=== PATIENT | male | born 1985 | race Caucasian/White ===

== ENCOUNTER 2023-03-02 13:20 | Emergency (ER) | payer MEDICAID, SELFPAY ==
--- NOTE | ~2023-03-02 | XR_ITS ---
EXAMINATION: XR lumbar spine 2-3V, XR sacrum coccyx min 2V CLINICAL INFORMATION: Reason for Exam back pain COMPARISON: None TECHNIQUE: 3 views of the lumbar spine. 3 views of the sacrum and coccyx. FINDINGS: 5 nonrib-bearing lumbar-type vertebral bodies. Vertebral body heights are maintained. Alignment is maintained. Mild degenerative disc disease at L5-S1 with minimal loss of disc space height. Paravertebral soft tissues are unremarkable. Sacroiliac and pubic symphysis joint spaces are maintained. Sacral arcuate lines are intact without evidence of sacral fracture or sacrococcygeal fracture dislocation. XR/XR sacrum coccyx min 2V IMPRESSION: Mild degenerative disc disease at L5-S1. No acute fracture.
--- NOTE | ~2023-03-02 | XR_ITS ---
EXAMINATION: XR lumbar spine 2-3V, XR sacrum coccyx min 2V CLINICAL INFORMATION: Reason for Exam back pain COMPARISON: None TECHNIQUE: 3 views of the lumbar spine. 3 views of the sacrum and coccyx. FINDINGS: 5 nonrib-bearing lumbar-type vertebral bodies. Vertebral body heights are maintained. Alignment is maintained. Mild degenerative disc disease at L5-S1 with minimal loss of disc space height. Paravertebral soft tissues are unremarkable. Sacroiliac and pubic symphysis joint spaces are maintained. Sacral arcuate lines are intact without evidence of sacral fracture or sacrococcygeal fracture dislocation. XR/XR lumbar spine 2-3V IMPRESSION: Mild degenerative disc disease at L5-S1. No acute fracture.
[2023-03-02 13:28] VITALS: BP 123/69; PULSE 78; RESP 16; TEMP 36.1; O2SAT 99; BMI 21.0
--- NOTE | 2023-03-02 13:29 | ED_ITS ---
HPI - Back Pain/Injury General Chief Complaint: Back Pain/Injury Stated Complaint: Back pain Time Seen by Provider: 03/02/23 15:17 Source: patient and RN notes reviewed Mode of arrival: ambulatory Limitations: no limitations History of Present Illness HPI Narrative: This is a 37-year-old male presenting to the emergency department with complaints of low back pain x4 days. Patient reports that while he was flipping wood 4 days ago, he felt some straining in his low back. He states that the pain has been increasing and states that today he has had difficulty walking secondary to the pain. He has been taking ibuprofen 800 without any relief. Patient reports that he has a history of back problems however denies any known disc herniations and has not had any back surgeries. He denies any numbness or tingling into his legs. Denies saddle anesthesia. Denies urinary or bowel incontinence. Denies urinary or bowel retention. Denies any chest pain, shortness of breath, fevers or chills. No other complaints or concerns at this time. MD elicited complaint: back pain Timing: constant Severity: severe Similar Symptoms Previously: No Quality: aching Location: lumbar spine, right lower back and left lower back Radiation: none Exacerbating factors: none Relieving factors: none Context: while lifting Associated symptoms: denies other symptoms Treatments prior to arrival: NSAIDS Work related injury: Yes Related Data Previous Rx's Medication Instructions Recorded acetaminophen 325 mg tablet 650 mg PO QID PRN pain #30 tabs 03/02/23 (Tylenol) cyclobenzaprine 10 mg tablet 10 mg PO TID PRN muscle spasm #20 03/02/23 tabs ibuprofen 800 mg tablet 800 mg PO TID PRN pain #30 tabs 03/02/23 oxycodone 5 mg tablet 5 mg PO Q6H PRN pain #10 tabs 03/02/23 prednisone 50 mg tablet 50 mg PO DAILY 5 days #5 tabs 03/02/23 Allergies Allergy/AdvReac Type Severity Reaction Status Date / Time No Known Allergies Allergy Verified 03/02/23 13:28 Review of Systems Review of Systems: Yes all other systems are reviewed and are negative Constitutional: Constitutional: Reports as per [facility] Social History Social History Advance Directives: No Advance Directives Information Provided: Yes Physical Exam Vital Signs: Vital Signs: Last Vital Signs Temp 97.0 F 03/02/23 13:28 Pulse 78 03/02/23 13:28 Resp 16 03/02/23 13:28 BP 123/69 03/02/23 13:28 Pulse Ox 99 03/02/23 13:28 O2 Del Method Room Air 03/02/23 13:28 BMI result Body Mass Index 21.0 Const: Other: Appears to be uncomfortable, secondary to back pain. General: cooperative Orientation/consciousness: patient oriented x3 Limitations: no limitations HEENT: Head: Yes normal to inspection, Yes normocephalic and Yes atraumatic Ears: hearing grossly normal bilaterally General nose exam: Normal external nose present Face and sinus: Yes normal facial exam Mouth: Normal oral and palatal mucosa present, oropharynx normal and moist mucous membranes Throat: Yes posterior oropharynx normal Eyes: General: appearance normal, both eyes and all related structures Eyelids: Yes eyelids normal Conjunctivae: conjunctivae normal Sclerae: sclerae normal Pupils: Equal, round and reactive pupils present EOM: EOMs intact bilaterally Neck: Neck: Yes normal visual inspection, Yes full ROM and Yes no lymphadenopathy Lymphatic: no lymphadenopathy noted Chest: Chest palpation & inspection: normal inspection of the chest Resp: Effort & Inspection: normal respiratory effort and able to speak in complete sentences Auscultation: clear to auscultation bilaterally, no crackles, no rales, no rhonchi and no wheezes Cardio: Rate: regular rate Rhythm: regular rhythm Heart sounds: S1 normal heart sound present and S2 normal heart sound present GI: Other: Abd is soft, nontender, nondistended. Inspection: Yes normal to inspection Palpation (GI): Soft to palpation Back/Spine/Pelvis: Other: The patient has tenderness to palpation along the midline lumbar spine with bilateral lumbar paraspinous muscle tenderness with spasms noted. Patellar reflexes are 2+ bilaterally. Distal sensation circulation intact. DP pulses 2+ bilaterally Skin: General skin exam: no rashes or lesions noted Trauma: no lacerations or abrasions Wounds: no wounds Neuro: General: patient oriented x3 and moves all extremities Cranial nerves: Yes Equal, round and reactive pupils present Extrem: General: Yes normal to inspection Right upper extremity: normal to inspection Left upper extremity: normal to inspection Right lower extremity: normal to inspection Left lower extremity: normal to inspection Course Course Course Narrative: This is a rapid medical exam. Deferred additional HPI, ROS, PE to primary provider 37 yo male with no known medical history here with lower back pain with r adiation to both legs x several days after lifting wood. Has tried ibuprofen at home with continued symptoms. Per patient unable to walk and arrives in [facility] Medications Administered Discontinued Medications Generic Name Dose Route Start Last Admin Trade Name Maurizio PRN Reason Stop Dose Admin Dexamethasone Sodium Phosphate 10 mg 03/02/23 16:35 03/02/23 16:47 Dexamethasone Sod Phosphate 10 Mg/Ml Vial IVPUSH 03/02/23 16:36 10 mg ONCE ONE Administration Diazepam 2 mg 03/02/23 16:41 03/02/23 16:47 Diazepam 2 Mg Tablet PO 03/02/23 16:42 2 mg ONCE ONE Administration Morphine Sulfate 4 mg 03/02/23 16:14 03/02/23 16:21 Morphine Sulfate 4 Mg/Ml Cartridge IVPUSH 03/02/23 16:15 4 mg ONCE ONE Administration Protocol Oxycodone HCl 5 mg 03/02/23 18:13 03/02/23 18:21 Oxycodone Hcl Immed Release 5 Mg Tablet PO 03/02/23 18:14 5 mg ONCE ONE Administration Medical Decision Making Medical Decision Making MDM Narrative: 37-year-old male presenting to the emergency department for evaluation of back pain x4 days. Patient was moving wood and slowly felt his back pain worsen throughout the last couple of days. He has been taking ibuprofen for his symptoms which has provided him without any relief. He has no red flag back symptoms however after examining patient he appears to be in significant amount of pain, patient medicated with morphine 4 mg IV. Also given Decadron, and Valium. Patient responded well to pain medication. Patient has good strength, Patellar reflexes 2+. X-rays of the lumbar and sacrum x-ray showing degenerative changes without any bony fractures. Discussed these results with patient and fredye at bedside. Patient's Mass Pat revealing patient has been prescribed Suboxone. He states that he has not taken this medication over a week. Patient adamantly denies any IV drug use or hx of IVDA - therefore epidural abscess is unlikely. Pt's hx of recent flipping logs, TTP of lumbar spine with muscle spasms noted supporting diagnosis of MSK related illness. He has had no fevers or chills, and pt is nontoxic appearing. No leukocytosis to suggest infectious process. Pt's presentation consistent with degenerative disc disease and muscle spasms. I discussed at length given patient's past history of opioid dependency on Suboxone and that oxycodone is contraindicated especially if taking concurrently. Patient reports that he has not taken this medication in over a week. I discussed risk versus benefit of treating pain with oxycodone versus Suboxone. Patient is visibly uncomfortable and I think it is appropriate to marisa at for severe pain for several days with NSAIDs, narcotic and steroids. Shared decision was made with patient, fiance and myself at bedside. Urged the importance of only taking oxycodone for severe pain only. I advised and encouraged patient to follow-up with his Suboxone [facility], especially if he c ontinues to start back up on Suboxone. Urged the importance of following up with them. Patient understands and agrees with plan. Patient is ambulatory leaving emergency department feeling improved. Differential Diagnosis Differential Diagnoses: The differential diagnosis associated with the presentation includes Disc herniation, lumbar muscle spasm, fracture, Cauda equina syndrome- un likely, epidural abscess -unlikely No urinary sxs to suggest nephroliathiasis, cystitis, pylonephritis Admission/Observation Consideration of admission/observation: Escalation of care including admission/observation considered Given level of pain, hospitalization observation considered however patient improved symptomatically we after receiving morphine, Valium, and Decadron. Lab Data MDM Lab Attestation statement: I reviewed the patient's lab results. No leukocytosis, H&H stable, chemistry WNL. 03/02/23 16:20 03/02/23 16:20 Labs: Lab Results 03/02/23 03/02/23 Range/Units 16:20 16:20 WBC 7.7 (4.8-10.8) X10*3/uL RBC 4.96 (4.60-5.80) X10*6/uL Hgb 15.4 (14.0-18.0) g/dl Hct 44.5 (42.0-52.0) % MCV 89.7 (80.0-98.0) fL MCH 31.0 (27.0-33.0) pg MCHC 34.6 (31.0-36.0) g/dl RDW 12.0 (11.0-16.0) % Plt Count 192 (160-400) X10*3/uL MPV 11.5 (9.4-12.4) fL Immature Gran % (Auto) 0.3 (0.0-0.4) % Neut % (Auto) 70.3 (45-73) % Lymph % (Auto) 21.0 (20-40) % [place] % (Auto) 6.1 (2-11) % Eos % (Auto) 1.6 (0-4) % Baso % (Auto) 0.7 (0-2) % Lymph # (Auto) 1.6 (1.2-4.9) X10*3/uL [place] # (Auto) 0.5 (0.1-1.2) X10*3/uL Eos # (Auto) 0.1 (0.0-0.4) X10*3/uL Baso # (Auto) 0.1 (0.0-0.2) X10*3/uL Abs Immat Gran (auto) 0.02 (0.00-0.03) X10*3/uL Absolute Neuts (auto) 5.4 (2.0-8.3) x10*3/uL Absolute Nucleated RBC 0.000 (0.0-0.012) X10*3/uL Nucleated RBC % (auto) 0.0 (0.0-0.2) /100WBC Sodium 141 (135-145) mmol/L Potassium 4.1 (3.3-5.1) mmol/L Chloride 104 (96-108) mmol/L Carbon Dioxide 23 (22-29) mmol/L Anion Gap 18 (12-20) BUN 18 H (9-16) mg/dL Creatinine 1.11 (0.5-1.4) mg/dL Estim Creat Clear Calc 75.9 Estimated GFR > 60 Random Glucose 113 (60-115) mg/dL Calcium 9.8 (8.4-10.2) mg/dL Total Bilirubin 0.6 (0.0-1.0) mg/dL Direct Bilirubin 0.2 (0.0-0.5) mg/dL AST 20 (5-37) U/L ALT 18 (0-40) U/L Alkaline Phosphatase 73 (39-117) U/L Total Protein 7.7 (6.5-8.0) g/dL Albumin 4.3 (3.5-5.0) g/dL Independent Interpretation I performed an independent interpretation of an: Plain X-Ray Interpretation: I reviewed xray imaging revealing degenerative changes, and agree with radiology report. Radiology Impression Discussion of test interpretation with radiology: I have reviewed the radiologist's reading. Radiologist Impression: EXAMINATION: XR lumbar spine 2-3V, XR sacrum coccyx min 2V ?CLINICAL INFORMATION: Reason for Exam back pain COMPARISON: None TECHNIQUE: 3 views of the lumbar spine. 3 views of the sacrum and coccyx. FINDINGS: 5 nonrib-bearing lumbar-type vertebral bodies. Vertebral body heights are maintained. Alignment is maintained. Mild degenerative disc disease at L5-S1 with minimal loss of disc space height. Paravertebral soft tissues are unremarkable. Sacroiliac and pubic symphysis joint spaces are maintained. Sacral arcuate lines are intact without evidence of sacral fracture or sacrococcygeal fracture dislocation. XR/XR sacrum coccyx min 2V IMPRESSION: ? Mild degenerative disc disease at L5-S1. ? No acute fracture. Dictated By: Morena Kovacs MD EXAMINATION: XR lumbar spine 2-3V, XR sacrum coccyx min 2V ?CLINICAL INFORMATION: Reason for Exam back pain COMPARISON: None TECHNIQUE: 3 views of the lumbar spine. 3 views of the sacrum and coccyx. FINDINGS: 5 nonrib-bearing lumbar-type vertebral bodies. Vertebral body heights are maintained. Alignment is maintained. Mild degenerative disc disease at L5-S1 with minimal loss of disc space height. Paravertebral soft tissues are unremarkable. Sacroiliac and pubic symphysis joint spaces are maintained. Sacral arcuate lines are intact without evidence of sacral fracture or sacrococcygeal fracture dislocation. XR/XR lumbar spine 2-3V IMPRESSION: ? Mild degenerative disc disease at L5-S1. ? No acute fracture. Dictated By: Morena Kovacs MD Independent Historian Clinical information obtained from an independent historian. History obtained from or confirmed by: Spouse Prescription Management I considered prescription management with: Pain Medication Social Determinants Patient?s care significantly limited by Social Determinants of Health including: Alcoholism and drug addiction in family Discharge Plan Discharge Clinical Impression: Back pain, Degenerative disc disease, lumbar, Lumbar paraspinal muscle spasm Patient Disposition: Home, Self-Care Instructions: Muscle Spasm (ED), Back Pain (ED) Additional Instructions: Please take prescribed medication as directed. Please start the prednisone dose tomorrow. Only take oxycodone as needed for severe pain. We cannot refill this medication in the emergency department. Please follow-up with your primary care physician. If any new or worsening symptoms occur including but not limited to numbness and tingling into your groin, urinary or bowel incontinence, please return for re-evaluation. Prescriptions: New cyclobenzaprine 10 mg tablet 10 mg PO TID PRN (Reason: muscle spasm) Qty: 20 0RF prednisone 50 mg tablet 50 mg PO DAILY 5 Days Qty: 5 0RF oxycodone 5 mg tablet 5 mg PO Q6H PRN (Reason: pain) Qty: 10 0RF Rx Instructions: Partial Fill upon patient request. ibuprofen 800 mg tablet 800 mg PO TID PRN (Reason: pain) Qty: 30 0RF acetaminophen [Tylenol] 325 mg tablet 650 mg PO QID PRN (Reason: pain) Qty: 30 0RF Referrals: [facility] [Physician] - Interventions: ED Discharge Assessment Last Done: 03/02/23 18:29 Discharge Date/Time: 03/02/23 18:29
[2023-03-02] MEDS: Morphine Sulfate 4 MG/ML CARTRIDGE IVPUSH (16:21)
[2023-03-02 16:25] LABS: MANUAL DIFF FLAG NO
[2023-03-02 16:30] LABS: Basophils Absolute Auto 0.1 X10*3/uL (0.0-0.2); Basophils Percent Auto 0.7 % (0-2); Eosinophils Absolute Auto 0.1 X10*3/uL (0.0-0.4); Eosinophils Percent Auto 1.6 % (0-4); Hematocrit 44.5 % (42.0-52.0); Hemoglobin 15.4 g/dl (14.0-18.0); Imm Gran Abs Auto 0.02 X10*3/uL (0.00-0.03); Imm Gran Pct Auto 0.3 % (0.0-0.4); Lymphocytes Absolute Auto 1.6 X10*3/uL (1.2-4.9); Mean Corpuscular HGB Conc 34.6 g/dl (31.0-36.0); Mean Corpuscular Volume 89.7 fL (80.0-98.0); Mean Platelet Volume 11.5 fL (9.4-12.4); Monocytes Absolute Auto 0.5 X10*3/uL (0.1-1.2); Monocytes Percent Auto 6.1 % (2-11); Neutrophils Absolute Auto 5.4 x10*3/uL (2.0-8.3); Neutrophils Percent Auto 70.3 % (45-73); Platelet Count 192 X10*3/uL (160-400); Red Blood Count 4.96 X10*6/uL (4.60-5.80); White Blood Count 7.7 X10*3/uL (4.8-10.8)
[2023-03-02] MEDS: dexAMETHasone sod phosphate 10 MG/ML VIAL IVPUSH (16:47)
[2023-03-02] MEDS: diazePAM 2 MG TABLET PO (16:47)
[2023-03-02 16:50] LABS: Alanine Aminotransferase 18 U/L (0-40); Albumin Level 4.3 g/dL (3.5-5.0); Alkaline Phosphatase 73 U/L (39-117); Anion Gap 18 (12-20); Aspartate Amino Transferase 20 U/L (5-37); Bilirubin Direct 0.2 mg/dL (0.0-0.5); Bilirubin Total 0.6 mg/dL (0.0-1.0); Blood Urea Nitrogen 18 mg/dL (9-16); Calcium 9.8 mg/dL (8.4-10.2); Carbon Dioxide 23 mmol/L (22-29); Chloride 104 mmol/L (96-108); Creatinine Clr Calc Pharmacy 75.9; Estimated Glomerular Filt Rate > 60; Glucose Random 113 mg/dL (60-115); Potassium 4.1 mmol/L (3.3-5.1); Sodium 141 mmol/L (135-145); Total Protein 7.7 g/dL (6.5-8.0)
--- NOTE | 2023-03-02 17:11 | PC.NURSE ---
pt medicated per MAR, imaging obtained, pt now rates pain 02/10 but is okay if (he) doesnt move call sanches within reach
[2023-03-02] MEDS: oxyCODONE HCl Immed Release 5 MG TABLET PO (18:21)
--- NOTE | 2023-03-02 18:28 | PC.NURSE ---
pt medicated perMAR pain now 12/11
== END 2023-03-02 18:29 | disposition home or self-care (01) ==
PROVIDERS: Physician Assistant Medical; Emergency Provider Student in an Organized Health Care Education/Training Program
DX: M51.16 Intervertebral disc disorders with radiculopathy, lumbar region (principal); M54.50 Low back pain, unspecified; M62.830 Muscle spasm of back; M51.37 Other intervertebral disc degeneration, lumbosacral region; Z79.899 Other long term (current) drug therapy
CPT/HCPCS: 36415; 72100; 72220; 80048; 80076; 85025; 96374; 96375; 99284; J1100; J2270

== ENCOUNTER 2023-07-16 23:41 | Inpatient (IN) | payer OTHER, MEDICAID, SELFPAY ==
[2023-07-16 23:42] VITALS: BP 154/96; PULSE 116; RESP 18; TEMP 36.6; O2SAT 100; BMI 21.8
[2023-07-17 00:05] LABS: MANUAL DIFF FLAG NO
[2023-07-17 00:06] LABS: Basophils Absolute Auto 0.1 X10*3/uL (0.0-0.2); Basophils Percent Auto 0.6 % (0-2); Eosinophils Absolute Auto 0.1 X10*3/uL (0.0-0.4); Eosinophils Percent Auto 0.7 % (0-4); Hematocrit 47.6 % (42.0-52.0); Hemoglobin 16.8 g/dl (14.0-18.0); Imm Gran Abs Auto 0.03 X10*3/uL (0.00-0.03); Imm Gran Pct Auto 0.3 % (0.0-0.4); Lymphocytes Absolute Auto 3.1 X10*3/uL (1.2-4.9); Lymphocytes Percent Auto 35.9 % (20-40); Mean Corpuscular HGB Conc 35.3 g/dl (31.0-36.0); Mean Corpuscular Hemoglobin 32.2 pg (27.0-33.0); Mean Corpuscular Volume 91.2 fL (80.0-98.0); Mean Platelet Volume 11.5 fL (9.4-12.4); Monocytes Absolute Auto 0.6 X10*3/uL (0.1-1.2); Monocytes Percent Auto 6.6 % (2-11); Neutrophils Absolute Auto 4.8 x10*3/uL (2.0-8.3); Neutrophils Percent Auto 55.9 % (45-73); Platelet Count 250 X10*3/uL (160-400); Red Blood Count 5.22 X10*6/uL (4.60-5.80); White Blood Count 8.7 X10*3/uL (4.8-10.8)
[2023-07-17 00:20] LABS: COVID-19 Test Negative (Negative); IDNOW Serial# BCCEAD1C
--- NOTE | 2023-07-17 00:24 | ED.PSYCH ---
HPI - Psych General Chief Complaint: Psychiatric Symptoms Stated Complaint: SI Time Seen by Provider: 07/17/23 00:23 Source: patient Mode of arrival: ambulatory Limitations: no limitations History of Present Illness HPI Narrative: 38-year-old male who presents emergency department for evaluation of depression, alcohol use disorder and opiate use disorder. Patient states that he has depression but has never been diagnosed with depression or been on medications. He states that he has been using oxycodone 30 mg 8 times a day but was unable to get any oxycodone for the last 1.5 weeks. He states that he then drank a pint of vodka between 16:00 and midnight prior to coming to the emergency department. Patient states that he normally drinks 3-4 beers per day. He states that he also smokes marijuana daily. He denies using any other drugs. Patient states that he is currently depressed but not suicidal. He would like to talk to a counselor regarding getting treatment for depression as well as getting treatment for his opiate and alcohol use disorder. Patient denied being ill recently. He denied fever, chills, rhinorrhea, sore throat, chest pain, shortness of breath, nausea, vomiting or diarrhea. He states he does get sweats at night has been having difficulty sleeping over the past 2 nights which he attributes to opiate withdrawal. He states that he at [facility] for rehab 3-4 months ago but he states that after rehab he started using opiates again. Related Data Home Medications Medication Instructions Recorded Confirmed No Known Home Meds 07/17/23 07/17/23 Allergies Allergy/AdvReac Type Severity Reaction Status Date / Time No Known Allergies Allergy Verified 03/02/23 13:28 Review of Systems Review of Systems: Yes all other systems are reviewed and are negative [facility] Past Medical History [facility] Narrative: Social history: Patient smokes 1 pack of cigarettes per day. He states that he drinks 3-4 beers per day. Patient advised oxycodone [address] and uses 8 tablets per day. He smokes marijuana daily. Social History Social History Advance Directives: No Advance Directives Information Provided: No Healthcare Proxy: No Guardian: No Physical Exam Vital Signs: Vital Signs: Last Vital Signs Temp 97.8 F 07/16/23 23:42 Pulse 116 H 07/16/23 23:42 Resp 18 07/16/23 23:42 BP 154/96 H 07/16/23 23:42 Pulse Ox 100 07/16/23 23:42 O2 Del Method Room Air 07/16/23 23:42 BMI result Body Mass Index 21.8 Vital signs revealed an elevated blood pressure of 154/96, elevated pulse 116 otherwise unremarkable. Exam General: Awake, alert in no distress Head: Normocephalic, atraumatic EENT: PERRL, Lids normal, sclera normal, conjunctiva normal, nose normal , ears normal, throat without erythema or exudates Neck: Supple, no adenopathy, no trachea midline or C-spine tenderness Lung: breath sounds symmetric, no wheezing, rales or rhonchi Chest: symmetric movement, nontender Heart: regular rate and rhythm, normal S1, S2 no murmurs or rubs Abdomen: soft, non-tender, nondistended, normal bowel sounds Back: no vertebral tenderness, no CVAT Extremities: no deformities, moves all extremities symmetrically Neuro: Awake, alert, oriented, normal speech, cranial nerves intact, moves all extremities symmetrically Psych: Pleasant, cooperative Medications Administered Discontinued Medications Generic Name Dose Route Start Last Admin Trade Name Freq PRN Reason Stop Dose Admin Lorazepam 2 mg 07/17/23 00:43 07/17/23 00:58 Lorazepam 1 Mg Tablet PO 07/17/23 00:44 2 mg ONCE ONE Administration Medical Decision Making Medical Decision Making [facility] Narrative: 38-year-old male with history of opiate use disorder, alcohol use disorder who states that he feels depressed and is requesting evaluation for depression and his opiate and alcohol use disorder. Patient states he did drink 1 pint of vodka prior to coming to emergency department. He states that he was using oxycodone 30 mg tablets 3 times a day but was able to get access to any oxycodone and has not had any opiates1.5 weeks prior. Patient's vital signs did reveal elevated blood pressure and elevated heart rate. Patient's exam is otherwise unremarkable. Following evaluation was ordered: CBC, CMP, urine drug screen, ethanol level, urinalysis, COVID-19 Patient is treated with Ativan 2 mg orally for anxiety and insomnia. My interpretation patient's laboratory evaluation is as follows: CBC was normal. CMP revealed an elevated glucose of 122 an elevated protein of 8.3 otherwise unremarkable. Urinalysis was negative. Urine tox screen was negative. Alcohol level was elevated 115 consistent with acute intoxication. Patient is medically cleared to be seen by the care team. 03:29 Patient was evaluated by the care team. Care team was able to get information from the patient's friend, apparently the patient made suicidal statements to his which sounded correctable. Patient was placed on a Section 12. Patient will remain in the emergency department Behavioral Health Unit until disposition can be determined or until patient's symptoms improve over time. Differential Diagnosis Differential Diagnoses: The differential diagnosis associated with the presentation includes Differential diagnosis includes was not limited to depression, suicidal ideation, anxiety, alcohol use disorder, opiate use disorder Admission/Observation Consideration of admission/observation: Escalation of care including admission/observation considered Lab Data MDM Lab Attestation statement: I reviewed the patient's lab results. See MDM above 07/16/23 23:59 07/16/23 23:59 Labs: Lab Results 07/16/23 07/17/23 Range/Units 23:59 00:14 WBC 8.7 (4.8-10.8) X10*3/uL RBC 5.22 (4.60-5.80) X10*6/uL Hgb 16.8 (14.0-18.0) g/dl Hct 47.6 (42.0-52.0) % MCV 91.2 (80.0-98.0) fL MCH 32.2 (27.0-33.0) pg MCHC 35.3 (31.0-36.0) g/dl RDW 13.0 (11.0-16.0) % Plt Count 250 D (160-400) X10*3/uL MPV 11.5 (9.4-12.4) fL Immature Gran % (Auto) 0.3 (0.0-0.4) % Neut % (Auto) 55.9 (45-73) % Lymph % (Auto) 35.9 (20-40) % [place] % (Auto) 6.6 (2-11) % Eos % (Auto) 0.7 (0-4) % Baso % (Auto) 0.6 (0-2) % Lymph # (Auto) 3.1 (1.2-4.9) X10*3/uL [place] # (Auto) 0.6 (0.1-1.2) X10*3/uL Eos # (Auto) 0.1 (0.0-0.4) X10*3/uL Baso # (Auto) 0.1 (0.0-0.2) X10*3/uL Abs Immat Gran (auto) 0.03 (0.00-0.03) X10*3/uL Absolute Neuts (auto) 4.8 (2.0-8.3) x10*3/uL Absolute Nucleated RBC 0.000 (0.0-0.012) X10*3/uL Nucleated RBC % (auto) 0.0 (0.0-0.2) /100WBC Sodium 145 (135-145) mmol/L Potassium 4.0 (3.3-5.1) mmol/L Chloride 106 (96-108) mmol/L Carbon Dioxide 27 (22-29) mmol/L Anion Gap 16 (12-20) BUN 13 (9-16) mg/dL Creatinine 1.04 (0.5-1.4) mg/dL Estim Creat Clear Calc 83.4 Estimated GFR > 60 Random Glucose 122 H (60-115) mg/dL Calcium 9.4 (8.4-10.2) mg/dL Total Bilirubin 0.3 (0.0-1.0) mg/dL AST 23 (5-37) U/L ALT 23 (0-40) U/L Alkaline Phosphatase 80 (39-117) U/L Total Protein 8.3 H (6.5-8.0) g/dL Albumin 4.6 (3.5-5.0) g/dL Urine Color Yellow Urine Appearance Clear Urine pH 6.5 (5.0-9.0) Ur Specific [place] 1.015 (1.005-1.025) Urine Protein Negative (Neg-Trace) mg/dL Urine Glucose (UA) Negative (Negative) mg/dL Urine Ketones Negative (Negative) mg/dL Urine Blood Negative (Negative) Urine Nitrite Negative (Negative) Ur Leukocyte Esterase Negative (Negative) Urine Opiates Screen Not Detected (Not Detect) Urine Fentanyl Screen Not Detected (Not Detect) Ur Barbiturates Screen Not Detected (Not Detect) Ur Phencyclidine Scrn Not Detected (Not Detect) Ur Amphetamines Screen Not Detected (Not Detect) U Benzodiazepines Scrn Not Detected (Not Detect) Urine Cocaine Screen Not Detected (Not Detect) U Marijuana (THC) Screen Not Detected (Not Detect) Ethyl Alcohol 115 mg/dL COVID-19 (TWYLA) Negative (Negative) COVID-19 Clin Com See Note Discharge Plan Discharge Clinical Impression: Depression, Suicidal ideation, Opiate use, Alcohol intoxication Patient Disposition: Still a Patient Prescriptions: No Action No Known Home Meds Interventions: [place]-Suicide Risk Severity Scale Last Done: 07/17/23 00:09
[2023-07-17 00:25] LABS: Alanine Aminotransferase 23 U/L (0-40); Albumin Level 4.6 g/dL (3.5-5.0); Alkaline Phosphatase 80 U/L (39-117); Anion Gap 16 (12-20); Aspartate Amino Transferase 23 U/L (5-37); Bilirubin Total 0.3 mg/dL (0.0-1.0); Blood Urea Nitrogen 13 mg/dL (9-16); Calcium 9.4 mg/dL (8.4-10.2); Carbon Dioxide 27 mmol/L (22-29); Chloride 106 mmol/L (96-108); Creatinine Clr Calc Pharmacy 83.4; Estimated Glomerular Filt Rate > 60; Ethanol 115 mg/dL; Glucose Random 122 mg/dL (60-115); Sodium 145 mmol/L (135-145); Total Protein 8.3 g/dL (6.5-8.0)
[2023-07-17 00:37] LABS: Appearance Urine Clear; Color Urine Yellow; Glucose Urine UA Negative (Negative); Leukocyte Esterase Urine Negative (Negative); Nitrite Urine Negative (Negative); PH 6.5 (5.0-9.0); Specific Gravity - Urine 1.015 (1.005-1.025); Urine Blood Negative (Negative); Urine Ketones Negative (Negative); Urine Protein Negative (Neg-Trace)
[2023-07-17 00:38] LABS: Amphetamine Screen Urine Not Detected (Not Detect); Barbiturates, Urine Not Detected (Not Detect); Benzodiazepines Screen Urine Not Detected (Not Detect); Cannabinoid Screen Urine Not Detected (Not Detect); Cocaine Screen Urine Not Detected (Not Detect); Fentanyl, urine Not Detected (Not Detect); Opiate Screen Urine Not Detected (Not Detect); Phencyclidine Screen Urine Not Detected (Not Detect)
[2023-07-17] MEDS: LORazepam 1 MG TABLET 2 MG PO (00:58)
[2023-07-17] MEDS: hydrOXYzine HCL 50 MG TABLET PO (04:05)
[2023-07-17 11:50] VITALS: BP 133/79; PULSE 68; RESP 16; TEMP 37.1; O2SAT 99
[2023-07-17 13:43] VITALS: BP 143/81; PULSE 65; RESP 18; TEMP 36.5; O2SAT 100
--- NOTE | 2023-07-17 13:58 | PC.NURSE ---
Hieu was in bed resting for most of the shift. He was pleasant when engaged and endorses wanting help and is happy about a bed up on the unit. Hieu has had no behavioral concerns. No meds ordered or requested.
[2023-07-17 13:59] VITALS: BMI 22.1
[2023-07-17] MEDS: Nicotine 21 MG PATCH.TD24 TRANSDERMA (14:12)
--- NOTE | 2023-07-17 15:52 | PC.ADMIT ---
Pt is a 38 y/o male with a spouse at home who arrived on M3 on 07/17/23 at 1343 on a CV. He came to the ED due to increased depression, alcohol use and opiate use. Pt reports using 8x 30mg Oxycodone a day from the streets, and drinking about a pint a day. Utox came back negative and BAL was reported to be 115. When approached, pt is calm and cooperative and accepting of help. He is A&O x 4 and denies SI/HI/AVH but endorses anxiety and depression. Skin check done by MACO and Davina Corado RN with no issues, participated in answering questions, and given a unit tour. He reports feeling safe and is willing to come to staff if feeling unsafe.
[2023-07-17] MEDS: Nicotine Polacrilex 2 MG GUM 4 MG BUCCAL ×3 (17:17→22:14)
[2023-07-17 18:00] VITALS: BP 138/82; PULSE 88; RESP 18; TEMP 37; O2SAT 99
[2023-07-17] MEDS: hydrOXYzine HCL 25 MG TABLET PO (23:44)
[2023-07-17] MEDS: traZODone HCL 50 MG TABLET PO (23:44)
[2023-07-18] MEDS: traZODone HCL 50 MG TABLET PO (01:17)
[2023-07-18] MEDS: QUEtiapine Fumarate 50 MG TABLET PO (03:36)
[2023-07-18 07:30] VITALS: BP 115/61; PULSE 70; RESP 14; TEMP 36.6; O2SAT 99
[2023-07-18 08:22] LABS: Estimated Average Glucose 88 mg/dL; Hemoglobin A1c % 4.7 % (<6.0)
[2023-07-18 08:30] LABS: Cholesterol 188 mg/dL (<200); HDL Cholesterol 66 mg/dL (>40); LDL Cholesterol Calculated 102 mg/dL (<100); Triglycerides 103 mg/dL (<150)
[2023-07-18 08:45] LABS: Free T4 (Free Thyroxine) 0.77 ng/dL (0.71-1.85); Thyroid Stimulating Hormone 1.29 uIU/mL (0.32-4.0)
--- NOTE | 2023-07-18 08:47 | HO.PS.ADMBH ---
HPI Date of Service: 07/18/23 Chief Complaint: SI/depression HPI Narrative: per CARE team evaluation, pt self-presented to ED c/o depression, alcohol use disorder, and opioid use disorder. he denied SI to clinicians but collateral from ngozi indicated he had recently been expressing SI at home. he reported a h/o physical injury and prescription for oxycodone, which then became and habit and then a substance of abuse. when he is unable to obtain oxycodone he drinks more heavily. he reported he has not had any oxycodone for 10 days and in the past 10 days has substantially increased his alcohol consumption. he c/o severe insomnia as a primary target symptom. he has been unable to work the past several weeks due to his insomnia, depression, and substance use. 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 in the past several weeks, as he has stopped working, this pain has subsided. 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 on interview with MD, pt was polite, calm, well-related, and engaged. he identified opioid addiction, alcohol addiction, depression/insomnia, and neuropathic pain as his problems. he identified insomnia and depression as target symptoms. R/B of medications and other approaches to the identified problems were discussed. in order to target pt's most salient symptom of insomnia, pt agreed to try remeron with seroquel back-up. for depression and neuropathic pain he agreed to start effexor. he was interested in a neurology consult for his bi-manual sensory, pain, and strength complaints. he will use ativan per [facility] protocol for alcohol withdrawal and will consider suboxone therapy for his opioid use disorder. Past Psychiatric History: hosps: none SA: none SIB: none HIB: none outpt: no Hx Medical Evaluation Reviewed: Yes PMF Family History: denies Social History: HS grad. lives with his ngozi and two children in a home they own. 14 yo, his bio child, and 9 yo, his step-child. 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 [employer]s vet, other than honorable discharge (briefly AWOL and admitted cannabis use trying to get out of service so he could be with his partner). Substance History: tobacco - 1.5 ppd alcohol - vodka 1-1.5 pints per day. no h/o Tx. no detox, no withdrawal Sz Hx. cannabis - once every other week opioids - oxycodone 30 mg 8 times daily when available, none for the past 10 days stimulants - none cocaine - none in the past year hallucinogenic mushrooms - microdosing for several days about 6 months ago Trauma History: i was in the [employer]. that was traumatic enough. Diagnostics Vital Signs (24Hr): Vital Signs - 24 hr 07/17/23 11:50 07/17/23 13:43 07/17/23 18:00 Temperature 98.8 F 97.7 F 98.6 F Pulse Rate 68 65 88 Respiratory Rate 16 18 18 Blood Pressure 133/79 143/81 H 138/82 Pulse Oximetry 99 100 99 Oxygen Delivery Method Room Air Room Air Room Air 07/18/23 07:30 Temperature 97.9 F Pulse Rate 70 Respiratory Rate 14 Blood Pressure 115/61 Pulse Oximetry 99 Oxygen Delivery Method Room Air BMI result Body Mass Index 22.1 Labs 07/16/23 23:59 07/16/23 23:59 Labs: Laboratory Results - last 48 hr 07/16/23 07/17/23 07/18/23 23:59 00:14 08:02 WBC 8.7 RBC 5.22 Hgb 16.8 Hct 47.6 MCV 91.2 MCH 32.2 MCHC 35.3 RDW 13.0 Plt Count 250 D MPV 11.5 Immature Gran % (Auto) 0.3 Neut % (Auto) 55.9 Lymph % (Auto) 35.9 Moody % (Auto) 6.6 Eos % (Auto) 0.7 Baso % (Auto) 0.6 Lymph # (Auto) 3.1 Moody # (Auto) 0.6 Eos # (Auto) 0.1 Baso # (Auto) 0.1 Abs Immat Gran (auto) 0.03 Absolute Neuts (auto) 4.8 Absolute Nucleated RBC 0.000 Nucleated RBC % (auto) 0.0 Sodium 145 Potassium 4.0 Chloride 106 Carbon Dioxide 27 Anion Gap 16 BUN 13 Creatinine 1.04 Estim Creat Clear Calc 83.4 Estimated GFR > 60 Random Glucose 122 H Estimat Average Glucose 88 Hemoglobin A1c % 4.7 Calcium 9.4 Total Bilirubin 0.3 AST 23 ALT 23 Alkaline Phosphatase 80 Total Protein 8.3 H Albumin 4.6 Triglycerides 103 Cholesterol 188 LDL Cholesterol, Calc 102 H HDL Cholesterol 66 TSH 1.29 Free T4 0.77 Urine Color Yellow Urine Appearance Clear Urine pH 6.5 Ur Specific [place] 1.015 Urine Protein Negative Urine Glucose (UA) Negative Urine Ketones Negative Urine Blood Negative Urine Nitrite Negative Ur Leukocyte Esterase Negative Urine Opiates Screen Not Detected Urine Fentanyl Screen Not Detected Ur Barbiturates Screen Not Detected Ur Phencyclidine Scrn Not Detected Ur Amphetamines Screen Not Detected U Benzodiazepines Scrn Not Detected Urine Cocaine Screen Not Detected U Marijuana (THC) Screen Not Detected Ethyl Alcohol 115 COVID-19 (TWYLA) Negative COVID-19 Clin Com See Note Meds/Allergies Meds Home Medications Medication Instructions Recorded Confirmed Type No Known Home Meds 07/17/23 07/17/23 History Allergies Allergies Allergy/AdvReac Type Severity Reaction Status Date / Time No Known Allergies Allergy Verified 03/02/23 13:28 Mental Status Exam Mental Status Exam Narrative: adequately dressed and groomed. no PMA/PMR. calm, cooperative. speech nml rate, amount, loudness, tone, latency. thoughts linear and logical. affect full range, normo-intense, non-labile. mood i'm here. denies SI/HI/AVH. 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 start remeron 30 mg ay HS for insomnia. increase to 45 mg QHS as indicated. seroquel 50-100 mg at HS for insomnia backup or to use as mainstay of insomnia therapy if remeron proves to be inadequate. neuro consult for evaluation of neuropathy in hands/arms B/L. ativan per [facility] protocol for alcohol withdrawal. no oxycodone in 10 days so no withdrawal anticipated. T/C suboxone, as pt has been addicted to opioids for about 2+ years now. Patient educated on: diagnosis, medication risk/benefits, substance abuse and medical condition Reason for continued partial hosp. stay Substantial Risk for: harm to self and inability to function Certification I certify that partial hospital treatment is medically necessary due to the symptoms and problems resulting from the patient's mental illness and the failure to treat the patient at the partial hospital level of care would likely result in the patient requiring inpatient psychiatric care which could not be prevented at a less intensive level of care. Time Spent With Patient Time: Total time managing care of this patient today __75__ minutes.
[2023-07-18 08:58] LABS: Folate 7.4 ng/mL (> or = 4.0); Vitamin B12 454 pg/mL (200-900)
[2023-07-18] MEDS: Nicotine 21 MG PATCH.TD24 TRANSDERMA (12:14)
[2023-07-18] MEDS: Nicotine Polacrilex 2 MG GUM 4 MG BUCCAL ×5 (12:15→20:47)
[2023-07-18] MEDS: Venlafaxine HCl ER 37.5 MG CAP.ER.24H PO (13:39)
[2023-07-18 19:50] VITALS: BP 141/69; PULSE 86; RESP 16; TEMP 36.9; O2SAT 98
[2023-07-18] MEDS: Milk of Magnesia 30 ML ORAL.SUSP PO (20:46)
[2023-07-18] MEDS: QUEtiapine Fumarate 100 MG TABLET PO (21:32)
[2023-07-18] MEDS: Docusate Sodium 100 MG CAPSULE PO (21:32)
[2023-07-18] MEDS: Mirtazapine 30 MG TABLET PO (21:32)
[2023-07-19 08:13] VITALS: BP 124/75; PULSE 60; TEMP 36.4; O2SAT 100
[2023-07-19] MEDS: Milk of Magnesia 30 ML ORAL.SUSP PO (09:05)
[2023-07-19] MEDS: Docusate Sodium 100 MG CAPSULE PO ×2 (09:05→18:36)
[2023-07-19] MEDS: Nicotine 21 MG PATCH.TD24 TRANSDERMA (09:06)
[2023-07-19] MEDS: Venlafaxine HCl ER 37.5 MG CAP.ER.24H PO (09:07)
[2023-07-19] MEDS: Nicotine Polacrilex 2 MG GUM 4 MG BUCCAL ×5 (11:22→20:16)
[2023-07-19] MEDS: hydrOXYzine HCL 25 MG TABLET PO (15:37)
--- NOTE | 2023-07-19 17:14 | HO.PSYCHPN ---
Subjective Subjective Date of Service: 07/19/23 Reason For Visit: SI/depression Interim History: Patient seen. He reports he is feeling As good as one can in here. He is tolerating medications well and has no side effects. He denies active SI. Appears dysphoric. Denies AVH. Review of Systems Review of Systems Yes all other systems are reviewed and are negative Mental Status Exam Mental Status Exam Narrative: adequately dressed and groomed. no PMA/PMR. calm, cooperative. speech nml rate, amount, loudness, tone, latency. thoughts linear and logical. affect full range, normo-intense, non-labile. mood i'm here. denies SI/HI/AVH. Diagnostics Vital Signs (24Hr): Vital Signs - 24 hr 07/18/23 19:50 07/19/23 08:13 Temperature 98.4 F 97.6 F Pulse Rate 86 60 Respiratory Rate 16 Blood Pressure 141/69 H 124/75 Pulse Oximetry 98 100 Oxygen Delivery Method Room Air Room Air BMI result Body Mass Index 22.1 Labs 07/16/23 23:59 07/16/23 23:59 Labs: Laboratory Results - last 48 hr 07/18/23 08:02 Estimat Average Glucose 88 Hemoglobin A1c % 4.7 Triglycerides 103 Cholesterol 188 LDL Cholesterol, Calc 102 H HDL Cholesterol 66 Vitamin B12 454 Folate 7.4 TSH 1.29 Free T4 0.77 Medications Medications Current Medications Acetaminophen (Acetaminophen 325 Mg Tablet) 650 mg PO Q6H PRN PRN Reason: Headache/Pain Mild Scale (1-3) Al Hydroxide/Mg Hydroxide (Magnesium Hydrox/Alum Hydrox 30 Ml Oral.Susp) 30 ml PO Q6H PRN PRN Reason: Heartburn/Nausea Docusate Sodium (Docusate Sodium 100 Mg Capsule) 100 mg PO BID PRN PRN Reason: constipation Last Admin: 07/19/23 09:05 Dose: 100 mg Hydroxyzine HCl (Hydroxyzine Hcl 25 Mg Tablet) 25 mg PO Q6H PRN PRN Reason: Anxiety Last Admin: 07/19/23 15:37 Dose: 25 mg Lorazepam (Lorazepam 1 Mg Tablet) 1 mg PO Q2H PRN PRN Reason: CIWA 8-11 Lorazepam (Lorazepam 1 Mg Tablet) 2 mg PO Q2H PRN PRN Reason: CIWA 12-15 Lorazepam (Lorazepam 1 Mg Tablet) 3 mg PO Q2H PRN PRN Reason: CIWA > 15; and call Magnesium Hydroxide (Milk Of Magnesia 30 Ml Oral.Susp) 30 ml PO DAILY PRN PRN Reason: Constipation Last Admin: 07/19/23 09:05 Dose: 30 ml Mirtazapine (Mirtazapine 30 Mg Tablet) 30 mg PO BEDTIME [facility] Last Admin: 07/18/23 21:32 Dose: 30 mg Nicotine (Nicotine 21 Mg Patch.Td24) 21 mg TRANSDERMA DAILY [facility] Last Admin: 07/19/23 09:06 Dose: 21 mg Nicotine Polacrilex (Nicotine Polacrilex 2 Mg Gum) 4 mg BUCCAL Q2H PRN PRN Reason: Nicotine Cravings Last Admin: 07/19/23 16:05 Dose: 4 mg Quetiapine Fumarate (Quetiapine Fumarate 50 Mg Tablet) 50 mg PO BEDTIME PRN PRN Reason: minor insomnia Quetiapine Fumarate (Quetiapine Fumarate 100 Mg Tablet) 100 mg PO BEDTIME PRN PRN Reason: major insomnia Last Admin: 07/18/23 21:32 Dose: 100 mg Venlafaxine HCl (Venlafaxine Hcl Er 37.5 Mg Cap.Er.24h) 37.5 mg PO DAILY [facility] Last Admin: 07/19/23 09:07 Dose: 37.5 mg Allergies Allergies Allergy/AdvReac Type Severity Reaction Status Date / Time No Known Allergies Allergy Verified 03/02/23 13:28 Assessment & Plan Assessment & Plan (1) Depression: Status: Acute Code(s): F32.A - Depression, unspecified (2) Suicidal ideation: Status: Acute Code(s): R45.851 - Suicidal ideations (3) Opiate use: Status: Acute Code(s): F11.90 - Opioid use, unspecified, uncomplicated (4) Alcohol use disorder: Status: Acute Code(s): F10.90 - Alcohol use, unspecified, uncomplicated Plan start effexor XR 37.5 mg daily for depression; 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 start remeron 30 mg ay HS for insomnia. increase to 45 mg QHS as indicated. seroquel 50-100 mg at HS for insomnia backup or to use as mainstay of insomnia therapy if remeron proves to be inadequate. neuro consult for evaluation of neuropathy in hands/arms B/L. ativan per [facility] protocol for alcohol withdrawal. no oxycodone in 10 days so no withdrawal anticipated. T/C suboxone, as pt has been addicted to opioids for about 2+ years now. 07/19: Continue treatment plan. Reason for continued inpatient stay Substantial Risk for: harm to self and rapid decompensation Time Spent With Patient Time: Total time managing care of this patient today ____ minutes.
[2023-07-19 19:45] VITALS: BP 148/66; PULSE 67; RESP 18; TEMP 36.9; O2SAT 98
--- NOTE | 2023-07-19 20:17 | PC.NURSE ---
Hieu reported increased nicotine cravings, asked for gum slightly earlier than allowed.
[2023-07-19] MEDS: QUEtiapine Fumarate 100 MG TABLET PO (20:44)
[2023-07-19] MEDS: Mirtazapine 30 MG TABLET PO (20:44)
[2023-07-20] MEDS: QUEtiapine Fumarate 50 MG TABLET PO ×2 (01:03→22:39)
[2023-07-20] MEDS: Nicotine Polacrilex 2 MG GUM 4 MG BUCCAL ×9 (01:03→22:39)
--- NOTE | 2023-07-20 01:04 | PC.NURSE ---
Hieu up to nurse's station at 0100. Stated he has been tossing and turning an unable to return to sleep. Requested the 50 mg of Seroquel to see if it would help him fall back to sleep.
[2023-07-20 07:35] VITALS: BP 119/66; PULSE 63; RESP 18; TEMP 36.2; O2SAT 98
[2023-07-20] MEDS: Nicotine 21 MG PATCH.TD24 TRANSDERMA (08:10)
[2023-07-20] MEDS: Venlafaxine HCl ER 37.5 MG CAP.ER.24H PO (08:10)
[2023-07-20] MEDS: hydrOXYzine HCL 25 MG TABLET PO (08:10)
[2023-07-20] MEDS: Docusate Sodium 100 MG CAPSULE PO ×2 (09:51→20:59)
[2023-07-20] MEDS: Milk of Magnesia 30 ML ORAL.SUSP PO (11:39)
[2023-07-20] MEDS: hydrOXYzine HCL 50 MG TABLET PO ×2 (14:43→20:56)
--- NOTE | 2023-07-20 19:32 | P.PNPSI_ITS ---
Subjective Subjective Date of Service: 07/20/23 Reason For Visit: SI/depression Interim History: Patient seen. He reports he is feeling better. He says he is anxious in groups. He is finding Hydroxyzine helpful but wondering about increase. Tolerating Effexor and Remeron. He denies active SI. Appears dysphoric. Denies AVH. Doesn't want to talk to because he is afraid speaking with her will make him want to go home more. Review of Systems Review of Systems Yes all other systems are reviewed and are negative Mental Status Exam Mental Status Exam Narrative: adequately dressed and groomed. no PMA/PMR. calm, cooperative. speech nml rate, amount, loudness, tone, latency. thoughts linear and logical. affect full range, normo-intense, non-labile. mood i'm here. denies SI/HI/AVH. Diagnostics Vital Signs (24Hr): Vital Signs - 24 hr 07/19/23 19:45 07/20/23 07:35 Temperature 98.5 F 97.2 F Pulse Rate 67 63 Respiratory Rate 18 18 Blood Pressure 148/66 H 119/66 Pulse Oximetry 98 98 Oxygen Delivery Method Room Air Room Air BMI result Body Mass Index 22.1 Labs 07/16/23 23:59 07/16/23 23:59 Medications Medications Current Medications Acetaminophen (Acetaminophen 325 Mg Tablet) 650 mg PO Q6H PRN PRN Reason: Headache/Pain Mild Scale (1-3) Al Hydroxide/Mg Hydroxide (Magnesium Hydrox/Alum Hydrox 30 Ml Oral.Susp) 30 ml PO Q6H PRN PRN Reason: Heartburn/Nausea Docusate Sodium (Docusate Sodium 100 Mg Capsule) 100 mg PO BID PRN PRN Reason: constipation Last Admin: 07/20/23 09:51 Dose: 100 mg Hydroxyzine HCl (Hydroxyzine Hcl 50 Mg Tablet) 50 mg PO Q6H PRN PRN Reason: Anxiety Last Admin: 07/20/23 14:43 Dose: 50 mg Lorazepam (Lorazepam 1 Mg Tablet) 1 mg PO Q2H PRN PRN Reason: CIWA 8-11 Lorazepam (Lorazepam 1 Mg Tablet) 2 mg PO Q2H PRN PRN Reason: CIWA 12-15 Lorazepam (Lorazepam 1 Mg Tablet) 3 mg PO Q2H PRN PRN Reason: CIWA > 15; and call MD Magnesium Hydroxide (Milk Of Magnesia 30 Ml Oral.Susp) 30 ml PO DAILY PRN PRN Reason: Constipation Last Admin: 07/20/23 11:39 Dose: 30 ml Mirtazapine (Mirtazapine 30 Mg Tablet) 30 mg PO BEDTIME [facility] Last Admin: 07/19/23 20:44 Dose: 30 mg Nicotine (Nicotine 21 Mg Patch.Td24) 21 mg TRANSDERMA DAILY [facility] Last Admin: 07/20/23 08:10 Dose: 21 mg Nicotine Polacrilex (Nicotine Polacrilex 2 Mg Gum) 4 mg BUCCAL Q2H PRN PRN Reason: Nicotine Cravings Last Admin: 07/20/23 17:47 Dose: 4 mg Quetiapine Fumarate (Quetiapine Fumarate 50 Mg Tablet) 50 mg PO BEDTIME PRN PRN Reason: minor insomnia Last Admin: 07/20/23 01:03 Dose: 50 mg Quetiapine Fumarate (Quetiapine Fumarate 100 Mg Tablet) 100 mg PO BEDTIME PRN PRN Reason: major insomnia Last Admin: 07/19/23 20:44 Dose: 100 mg Venlafaxine HCl (Venlafaxine Hcl Er 37.5 Mg Cap.Er.24h) 37.5 mg PO DAILY [facility] Last Admin: 07/20/23 08:10 Dose: 37.5 mg Allergies Allergies Allergy/AdvReac Type Severity Reaction Status Date / Time No Known Allergies Allergy Verified 03/02/23 13:28 Assessment & Plan Assessment & Plan (1) Depression: Status: Acute Code(s): F32.A - Depression, unspecified (2) Suicidal ideation: Status: Acute Code(s): R45.851 - Suicidal ideations (3) Opiate use: Status: Acute Code(s): F11.90 - Opioid use, unspecified, uncomplicated (4) Alcohol use disorder: Status: Acute Code(s): F10.90 - Alcohol use, unspecified, uncomplicated Plan start effexor XR 37.5 mg daily for depression; 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 start remeron 30 mg ay HS for insomnia. increase to 45 mg QHS as indicated. seroquel 50-100 mg at HS for insomnia backup or to use as mainstay of insomnia therapy if remeron proves to be inadequate. neuro consult for evaluation of neuropathy in hands/arms B/L. ativan per [facility] protocol for alcohol withdrawal. no oxycodone in 10 days so no withdrawal anticipated. T/C suboxone, as pt has been addicted to opioids for about 2+ years now. 07/19: Continue treatment plan. 07/20: Increase PRN Vistaril to 50 mg. Continue current management and treatment plan. Reason for continued inpatient stay Substantial Risk for: harm to self, inability to function and rapid decompensation Time Spent With Patient Time: Total time managing care of this patient today ____ minutes.
[2023-07-20 19:55] VITALS: BP 154/100; PULSE 85; RESP 18; TEMP 36.4; O2SAT 99
[2023-07-20] MEDS: QUEtiapine Fumarate 100 MG TABLET PO (20:56)
[2023-07-20] MEDS: Mirtazapine 30 MG TABLET PO (20:56)
[2023-07-20 23:00] VITALS: BP 141/82; PULSE 99
[2023-07-21] MEDS: traZODone HCL 100 MG TABLET PO ×2 (00:13→02:03)
[2023-07-21] MEDS: Nicotine Polacrilex 2 MG GUM 4 MG BUCCAL ×7 (07:20→22:52)
[2023-07-21] MEDS: Nicotine 21 MG PATCH.TD24 TRANSDERMA (08:18)
[2023-07-21] MEDS: Venlafaxine HCl ER 37.5 MG CAP.ER.24H PO ×2 (08:18→11:36)
[2023-07-21 08:32] VITALS: BP 121/75; PULSE 87; RESP 18; TEMP 36.2; O2SAT 98
[2023-07-21] MEDS: Acetaminophen 325 MG TABLET 650 MG PO (08:40)
[2023-07-21] MEDS: Docusate Sodium 100 MG CAPSULE PO ×2 (08:40→22:52)
[2023-07-21] MEDS: Milk of Magnesia 30 ML ORAL.SUSP PO (08:40)
[2023-07-21] MEDS: hydrOXYzine HCL 50 MG TABLET PO ×2 (08:41→15:44)
[2023-07-21] MEDS: Naltrexone HCl 50 MG TABLET PO (11:36)
--- NOTE | 2023-07-21 13:56 | P.PNPSI_ITS ---
Subjective Subjective Date of Service: 07/21/23 Reason For Visit: SI/depression Interim History: calm, cooperative. interested in naltrexone, R/B discussed, including liver injury, opioid blockade. pt agrees to trial. also agreeable to advance effexor XR to 75 mg daily and to start gabapentin for neuropathic pain at 300 TID today. open to neuro consult for the same. poor sleep last night, states it appeared to be related to pain. per staff, not scoring for CIWA protocol. dep/anx 6. brighter, more visible yesterday. atarax 50 mg PRN. friday slept OK, last night had difficulty. hands throbbing last night. Mental Status Exam Mental Status Exam Narrative: adequately dressed and groomed. no PMA/PMR. calm, cooperative. speech nml rate, amount, loudness, tone, latency. thoughts linear and logical. affect full range, normo-intense, non-labile. mood not assessed. no SI/HI/AVH expressed. Diagnostics Vital Signs (24Hr): Vital Signs - 24 hr 07/20/23 19:55 07/20/23 23:00 07/21/23 08:32 Temperature 97.6 F 97.2 F Pulse Rate 85 99 87 Respiratory Rate 18 18 Blood Pressure 154/100 H 141/82 H 121/75 Pulse Oximetry 99 98 Oxygen Delivery Method Room Air Room Air BMI result Body Mass Index 22.1 Labs 07/16/23 23:59 07/16/23 23:59 Medications Medications Current Medications Acetaminophen (Acetaminophen 325 Mg Tablet) 650 mg PO Q6H PRN PRN Reason: Headache/Pain Mild Scale (1-3) Last Admin: 07/21/23 08:40 Dose: 650 mg Al Hydroxide/Mg Hydroxide (Magnesium Hydrox/Alum Hydrox 30 Ml Oral.Susp) 30 ml PO Q6H PRN PRN Reason: Heartburn/Nausea Docusate Sodium (Docusate Sodium 100 Mg Capsule) 100 mg PO BID TIM Gabapentin (Gabapentin 300 Mg Capsule) 300 mg PO TID TIM Hydroxyzine HCl (Hydroxyzine Hcl 50 Mg Tablet) 50 mg PO Q6H PRN PRN Reason: Anxiety Last Admin: 07/21/23 08:41 Dose: 50 mg Magnesium Hydroxide (Milk Of Magnesia 30 Ml Oral.Susp) 30 ml PO DAILY PRN PRN Reason: Constipation Last Admin: 07/21/23 08:40 Dose: 30 ml Mirtazapine (Mirtazapine 30 Mg Tablet) 30 mg PO BEDTIME [facility] Last Admin: 07/20/23 20:56 Dose: 30 mg Naltrexone HCl (Naltrexone Hcl 50 Mg Tablet) 50 mg PO DAILY [facility] Last Admin: 07/21/23 11:36 Dose: 50 mg Nicotine (Nicotine 21 Mg Patch.Td24) 21 mg TRANSDERMA DAILY [facility] Last Admin: 07/21/23 08:18 Dose: 21 mg Nicotine Polacrilex (Nicotine Polacrilex 2 Mg Gum) 4 mg BUCCAL Q2H PRN PRN Reason: Nicotine Cravings Last Admin: 07/21/23 12:53 Dose: 4 mg Quetiapine Fumarate (Quetiapine Fumarate 50 Mg Tablet) 50 mg PO BEDTIME PRN PRN Reason: minor insomnia Last Admin: 07/20/23 22:39 Dose: 50 mg Quetiapine Fumarate (Quetiapine Fumarate 100 Mg Tablet) 100 mg PO BEDTIME PRN PRN Reason: major insomnia Last Admin: 07/20/23 20:56 Dose: 100 mg Venlafaxine HCl (Venlafaxine Hcl Er 75 Mg Cap.Er.24h) 75 mg PO DAILY [facility] Allergies Allergies Allergy/AdvReac Type Severity Reaction Status Date / Time No Known Allergies Allergy Verified 03/02/23 13:28 Assessment & Plan Assessment & Plan (1) Depression: Status: Acute Code(s): F32.A - Depression, unspecified (2) Suicidal ideation: Status: Acute Code(s): R45.851 - Suicidal ideations (3) Opiate use: Status: Acute Code(s): F11.90 - Opioid use, unspecified, uncomplicated (4) Alcohol use disorder: Status: Acute Code(s): F10.90 - Alcohol use, unspecified, uncomplicated Plan 07/18: start effexor XR 37.5 mg daily for depression; 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 start remeron 30 mg ay HS for insomnia. increase to 45 mg QHS as indicated. seroquel 50-100 mg at HS for insomnia backup or to use as mainstay of insomnia therapy if remeron proves to be inadequate. neuro consult for evaluation of neuropathy in hands/arms B/L. ativan per [facility] protocol for alcohol withdrawal. no oxycodone in 10 days so no withdrawal anticipated. T/C suboxone, as pt has been addicted to opioids for about 2+ years now. 07/19: Continue treatment plan. 07/20: Increase PRN Vistaril to 50 mg. Continue current management and treatment plan. 07/21: increase effexor XR to 75 mg as of today. start gabapentin 300 TID for neuropathic pain today. start naltrexone 50 mg daily for opioid and alcohol use disorders today. neuro consult for neuropathic pain. Reason for continued inpatient stay Substantial Risk for: harm to self, inability to function and rapid decompensation Time Spent With Patient Time: Total time managing care of this patient today __35__ minutes.
[2023-07-21] MEDS: Gabapentin 300 MG CAPSULE PO ×2 (14:28→22:51)
[2023-07-21 19:15] VITALS: BP 140/65; PULSE 79; RESP 18; TEMP 37.1; O2SAT 97
[2023-07-21] MEDS: Mirtazapine 30 MG TABLET PO (22:51)
[2023-07-21] MEDS: QUEtiapine Fumarate 100 MG TABLET PO (22:52)
[2023-07-22 07:15] VITALS: BP 124/75; PULSE 83; RESP 16; TEMP 36.3; O2SAT 98
[2023-07-22] MEDS: Nicotine 21 MG PATCH.TD24 TRANSDERMA (09:11)
[2023-07-22] MEDS: Venlafaxine HCl ER 75 MG CAP.ER.24H PO (09:11)
[2023-07-22] MEDS: Docusate Sodium 100 MG CAPSULE PO (09:11)
[2023-07-22] MEDS: Gabapentin 300 MG CAPSULE PO (09:11)
[2023-07-22] MEDS: hydrOXYzine HCL 50 MG TABLET PO ×2 (09:11→15:46)
[2023-07-22] MEDS: Naltrexone HCl 50 MG TABLET PO (09:11)
--- NOTE | 2023-07-22 14:32 | P.PNPSI_ITS ---
Subjective Subjective Date of Service: 07/22/23 Reason For Visit: SI/depression Interim History: feels mild improvement in neuro status of hands B/L with roberta 300 TID, no sedation. increase roberta to 600 TID. concerned about insomnia. did not have seroquel 50 PRN last night, just the 100 scheduled. agreeable to increase remeron to 45 mg and continue current plan otherwise. thinking of friday discharge. per staff, attending groups, taking meds. edp 5. guarded. slept 6 hours. Mental Status Exam Mental Status Exam Narrative: adequately dressed and groomed. no PMA/PMR. calm, cooperative. speech nml rate, amount, loudness, tone, latency. thoughts linear and logical. affect full range, normo-intense, non-labile. mood not assessed. no SI/HI/AVH expressed. Diagnostics Vital Signs (24Hr): Vital Signs - 24 hr 07/21/23 19:15 07/22/23 07:15 Temperature 98.7 F 97.4 F Pulse Rate 79 83 Respiratory Rate 18 16 Blood Pressure 140/65 H 124/75 Pulse Oximetry 97 98 Oxygen Delivery Method Room Air Room Air BMI result Body Mass Index 22.1 Labs 07/16/23 23:59 07/16/23 23:59 Medications Medications Current Medications Acetaminophen (Acetaminophen 325 Mg Tablet) 650 mg PO Q6H PRN PRN Reason: Headache/Pain Mild Scale (1-3) Last Admin: 07/21/23 08:40 Dose: 650 mg Al Hydroxide/Mg Hydroxide (Magnesium Hydrox/Alum Hydrox 30 Ml Oral.Susp) 30 ml PO Q6H PRN PRN Reason: Heartburn/Nausea Docusate Sodium (Docusate Sodium 100 Mg Capsule) 200 mg PO BID TIM Gabapentin (Gabapentin 300 Mg Capsule) 600 mg PO TID TIM Hydroxyzine HCl (Hydroxyzine Hcl 50 Mg Tablet) 50 mg PO Q6H PRN PRN Reason: Anxiety Last Admin: 07/22/23 09:11 Dose: 50 mg Magnesium Hydroxide (Milk Of Magnesia 30 Ml Oral.Susp) 30 ml PO DAILY PRN PRN Reason: Constipation Last Admin: 07/21/23 08:40 Dose: 30 ml Mirtazapine (Mirtazapine 15 Mg Tablet) 45 mg PO BEDTIME TIM Naltrexone HCl (Naltrexone Hcl 50 Mg Tablet) 50 mg PO DAILY TIM Last Admin: 07/22/23 09:11 Dose: 50 mg Nicotine (Nicotine 21 Mg Patch.Td24) 21 mg TRANSDERMA DAILY [facility] Last Admin: 07/22/23 09:11 Dose: 21 mg Nicotine Polacrilex (Nicotine Polacrilex 2 Mg Gum) 4 mg BUCCAL Q2H PRN PRN Reason: Nicotine Cravings Last Admin: 07/21/23 22:52 Dose: 4 mg Polyethylene Glycol (Polyethylene Glycol 3350 17 Gm Powd.Pack) 17 gm PO DAILY PRN PRN Reason: constipation Quetiapine Fumarate (Quetiapine Fumarate 50 Mg Tablet) 50 mg PO BEDTIME PRN PRN Reason: minor insomnia Last Admin: 07/20/23 22:39 Dose: 50 mg Quetiapine Fumarate (Quetiapine Fumarate 100 Mg Tablet) 100 mg PO BEDTIME PRN PRN Reason: major insomnia Last Admin: 07/21/23 22:52 Dose: 100 mg Venlafaxine HCl (Venlafaxine Hcl Er 75 Mg Cap.Er.24h) 75 mg PO DAILY [facility] Last Admin: 07/22/23 09:11 Dose: 75 mg Allergies Allergies Allergy/AdvReac Type Severity Reaction Status Date / Time No Known Allergies Allergy Verified 03/02/23 13:28 Assessment & Plan Assessment & Plan (1) Depression: Status: Acute Code(s): F32.A - Depression, unspecified (2) Suicidal ideation: Status: Acute Code(s): R45.851 - Suicidal ideations (3) Opiate use: Status: Acute Code(s): F11.90 - Opioid use, unspecified, uncomplicated (4) Alcohol use disorder: Status: Acute Code(s): F10.90 - Alcohol use, unspecified, uncomplicated Plan 07/18: start effexor XR 37.5 mg daily for depression; 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 start remeron 30 mg ay HS for insomnia. increase to 45 mg QHS as indicated. seroquel 50-100 mg at HS for insomnia backup or to use as mainstay of insomnia therapy if remeron proves to be inadequate. neuro consult for evaluation of neuropathy in hands/arms B/L. ativan per [facility] protocol for alcohol withdrawal. no oxycodone in 10 days so no withdrawal anticipated. T/C suboxone, as pt has been addicted to opioids for about 2+ years now. 07/19: Continue treatment plan. 07/20: Increase PRN Vistaril to 50 mg. Continue current management and treatment plan. 07/21: increase effexor XR to 75 mg as of today. start gabapentin 300 TID for neuropathic pain today. start naltrexone 50 mg daily for opioid and alcohol use disorders today. neuro consult for neuropathic pain. 07/22: increase gabapentin to 600 TID. increase remeron to 45 mg QHS. otherwise continue current mgmt. considering friday discharge. Reason for continued inpatient stay Substantial Risk for: rapid decompensation Time Spent With Patient Time: Total time managing care of this patient today __35__ minutes.
[2023-07-22] MEDS: Gabapentin 300 MG CAPSULE 600 MG PO ×2 (14:44→22:12)
[2023-07-22] MEDS: Docusate Sodium 100 MG CAPSULE 200 MG PO (22:12)
[2023-07-22] MEDS: Mirtazapine 15 MG TABLET 45 MG PO (22:13)
[2023-07-22 22:17] VITALS: BP 143/85; PULSE 85; TEMP 36.8; O2SAT 98
[2023-07-23 08:11] VITALS: BP 150/96; PULSE 66; RESP 16; TEMP 36.1; O2SAT 99
[2023-07-23] MEDS: Naltrexone HCl 50 MG TABLET PO (08:33)
[2023-07-23] MEDS: Docusate Sodium 100 MG CAPSULE 200 MG PO ×2 (08:33→22:45)
[2023-07-23] MEDS: Venlafaxine HCl ER 75 MG CAP.ER.24H PO (08:33)
[2023-07-23] MEDS: Gabapentin 300 MG CAPSULE 600 MG PO ×3 (08:33→22:45)
[2023-07-23] MEDS: hydrOXYzine HCL 50 MG TABLET PO (08:36)
--- NOTE | 2023-07-23 11:09 | PM.NEUROCN ---
History of Present Illness Data of Consult Service Date: 07/23/23 Primary Care Provider: None Physician HPI Reason for consult: Hand pain 38 years old man I was asked to see for hand pain. He reported that he has been working in [employer] using [employer] for 20 some years. Recently was waking up with pain in his hand and to him it seem like it is hands were swollen but there were not swollen. There was no complaint of any significant neck pain. His symptoms somewhat decreased when he stopped working Review of Systems Review of Systems: No significant neck pain or recent trauma. [facility] Social History Social History Household Members: Spouse Housing: Apartment Do you presently have visiting nurse or other home services: No Patient Tobacco Use Status: Current everyday Tobacco user Tobacco use type: Cigarette Cigarette Packs Per Day: 1.5 Cigarettes Per Day: 30.0 Smoked in Last 30 Days: Yes e-Cigarette/Vaping Use: Never Used Patient Interested in Nicotine Replacement: Yes Patient Given Instructions on How to Stop Smoking: No Second Hand Smoke Exposure: No Use of substances other than those prescribed or required for medical reasons: Yes Substance Use Type: Opiates Substance Use Frequency: Daily Last Used Substance: Weeks (ago) Last Used Substance Other:: 1.5 weeks ago Currently Displaying Signs/Symptoms of Drug Intoxication Withdrawal: No Any prior treatment program specific to substance use: No Have you been hit, kicked, punched, or otherwise hurt by someone within the past year? If so, by whom?: No Do you feel safe in your current relationship?: Yes Is there a partner from a previous relationship who is making you feel unsafe now?: No Are you made to feel afraid or neglected: No Advance Directives: No Advance Directives Information Provided: No Healthcare Proxy: No Guardian: No Do you have thoughts of harming others: None Do you have a plan to hurt others: No Plan Recently lost weight without trying: No Eating poorly because of decreased appetite: No Nutrition Risks: No Nutritional Risk Poor oral hygiene: No service: No Sexual orientation: Straight/Heterosexual Meds Allergies Allergy/AdvReac Type Severity Reaction Status Date / Time No Known Allergies Allergy Verified 03/02/23 13:28 Active Medications: Current Medications Acetaminophen (Acetaminophen 325 Mg Tablet) 650 mg PO Q6H PRN PRN Reason: Headache/Pain Mild Scale (1-3) Last Admin: 07/21/23 08:40 Dose: 650 mg Al Hydroxide/Mg Hydroxide (Magnesium Hydrox/Alum Hydrox 30 Ml Oral.Susp) 30 ml PO Q6H PRN PRN Reason: Heartburn/Nausea Docusate Sodium (Docusate Sodium 100 Mg Capsule) 200 mg PO BID [facility] Last Admin: 07/23/23 08:33 Dose: 200 mg Gabapentin (Gabapentin 300 Mg Capsule) 600 mg PO TID [facility] Last Admin: 07/23/23 08:33 Dose: 600 mg Hydroxyzine HCl (Hydroxyzine Hcl 50 Mg Tablet) 50 mg PO Q6H PRN PRN Reason: Anxiety Last Admin: 07/23/23 08:36 Dose: 50 mg Magnesium Hydroxide (Milk Of Magnesia 30 Ml Oral.Susp) 30 ml PO DAILY PRN PRN Reason: Constipation Last Admin: 07/21/23 08:40 Dose: 30 ml Mirtazapine (Mirtazapine 15 Mg Tablet) 45 mg PO BEDTIME [facility] Last Admin: 07/22/23 22:13 Dose: 45 mg Naltrexone HCl (Naltrexone Hcl 50 Mg Tablet) 50 mg PO DAILY [facility] Last Admin: 07/23/23 08:33 Dose: 50 mg Nicotine (Nicotine 21 Mg Patch.Td24) 21 mg TRANSDERMA DAILY [facility] Last Admin: 07/23/23 08:42 Dose: Not Given Nicotine Polacrilex (Nicotine Polacrilex 2 Mg Gum) 4 mg BUCCAL Q2H PRN PRN Reason: Nicotine Cravings Last Admin: 07/21/23 22:52 Dose: 4 mg Polyethylene Glycol (Polyethylene Glycol 3350 17 Gm Powd.Pack) 17 gm PO DAILY PRN PRN Reason: constipation Quetiapine Fumarate (Quetiapine Fumarate 50 Mg Tablet) 50 mg PO BEDTIME PRN PRN Reason: minor insomnia Last Admin: 07/20/23 22:39 Dose: 50 mg Quetiapine Fumarate (Quetiapine Fumarate 100 Mg Tablet) 100 mg PO BEDTIME PRN PRN Reason: major insomnia Last Admin: 07/21/23 22:52 Dose: 100 mg Venlafaxine HCl (Venlafaxine Hcl Er 75 Mg Cap.Er.24h) 75 mg PO DAILY [facility] Last Admin: 07/23/23 08:33 Dose: 75 mg Home Medications Medication Instructions Recorded Confirmed Last Taken Type No Known Home Meds 07/17/23 07/17/23 Unknown History Physical Exam Vital Signs: Vital Signs: Last Vital Signs Temp 97.0 F 07/23/23 08:11 Pulse 66 07/23/23 08:11 Resp 16 07/23/23 08:11 BP 150/96 H 07/23/23 08:11 Pulse Ox 99 07/23/23 08:11 O2 Del Method Room Air 07/23/23 08:11 BMI result Body Mass Index 22.1 Neuro: Other: Mild bilateral abductor pollicis brevis atrophy. Otherwise no significant abnormality in hands was noted. Results Labs 07/16/23 23:59 07/16/23 23:59 Assessment and Plan (1) Carpal tunnel syndrome on both sides: Status: Acute 38 years old man who probably has bilateral carpal tunnel syndrome. He was advised to have appropriate investigation when he was discharged. In the meantime bilateral wrist splints during sleep are recommended. I would advise against using pain medicine especially habit-forming pain medicine for this condition. It is treated with nightly wrist splints, cortisone injection after proper investigation, and sometime with surgery. He should avoid repetitive hand motion. Procedures Date of Service Date of Service: 07/23/23
[2023-07-23] MEDS: OLANZapine 5 MG TABLET PO (11:45)
[2023-07-23] MEDS: Nicotine Polacrilex 2 MG GUM 4 MG BUCCAL ×5 (12:37→22:46)
[2023-07-23] MEDS: Nicotine 21 MG PATCH.TD24 TRANSDERMA (12:38)
--- NOTE | 2023-07-23 15:28 | HO.PSYCHPN ---
Subjective Subjective Date of Service: 07/23/23 Reason For Visit: SI/depression Interim History: a bit amped up today, serially requiring redirection and more irritable with staff, impulsive. states he has stopped nicotine, trying to taper off, so maybe that is a factor. slept well last night. discussed bipolar disorder and rosalia Sx. agreed to return to nicotine use for now to remove as a variable. will continue Tx otherwise and trend behavior. per staff, very social. getting atarax PRNs. appeared to have slept more than 9 hours. Mental Status Exam Mental Status Exam Narrative: adequately dressed and groomed. mild PMA of quick frequent gesticulations. calm, cooperative. speech incr rate, amount; nml loudness, tone, latency. thoughts linear and logical. affect full range, normo-intense, non-labile. mood irritable. no SI/HI/AVH expressed. Diagnostics Vital Signs (24Hr): Vital Signs - 24 hr 07/22/23 22:17 07/23/23 08:11 Temperature 98.2 F 97.0 F Pulse Rate 85 66 Respiratory Rate 16 Blood Pressure 143/85 H 150/96 H Pulse Oximetry 98 99 Oxygen Delivery Method Room Air Room Air BMI result Body Mass Index 22.1 Labs 07/16/23 23:59 07/16/23 23:59 Medications Medications Current Medications Acetaminophen (Acetaminophen 325 Mg Tablet) 650 mg PO Q6H PRN PRN Reason: Headache/Pain Mild Scale (1-3) Last Admin: 07/21/23 08:40 Dose: 650 mg Al Hydroxide/Mg Hydroxide (Magnesium Hydrox/Alum Hydrox 30 Ml Oral.Susp) 30 ml PO Q6H PRN PRN Reason: Heartburn/Nausea Docusate Sodium (Docusate Sodium 100 Mg Capsule) 200 mg PO BID [facility] Last Admin: 07/23/23 08:33 Dose: 200 mg Gabapentin (Gabapentin 300 Mg Capsule) 600 mg PO TID [facility] Last Admin: 07/23/23 15:05 Dose: 600 mg Hydroxyzine HCl (Hydroxyzine Hcl 50 Mg Tablet) 50 mg PO Q6H PRN PRN Reason: Anxiety Last Admin: 07/23/23 08:36 Dose: 50 mg Magnesium Hydroxide (Milk Of Magnesia 30 Ml Oral.Susp) 30 ml PO DAILY PRN PRN Reason: Constipation Last Admin: 07/21/23 08:40 Dose: 30 ml Mirtazapine (Mirtazapine 15 Mg Tablet) 45 mg PO BEDTIME [facility] Last Admin: 07/22/23 22:13 Dose: 45 mg Naltrexone HCl (Naltrexone Hcl 50 Mg Tablet) 50 mg PO DAILY [facility] Last Admin: 07/23/23 08:33 Dose: 50 mg Nicotine (Nicotine 21 Mg Patch.Td24) 21 mg TRANSDERMA DAILY [facility] Last Admin: 07/23/23 12:38 Dose: 21 mg Nicotine Polacrilex (Nicotine Polacrilex 2 Mg Gum) 4 mg BUCCAL Q2H PRN PRN Reason: Nicotine Cravings Last Admin: 07/23/23 15:05 Dose: 4 mg Polyethylene Glycol (Polyethylene Glycol 3350 17 Gm Powd.Pack) 17 gm PO DAILY PRN PRN Reason: constipation Quetiapine Fumarate (Quetiapine Fumarate 50 Mg Tablet) 50 mg PO BEDTIME PRN PRN Reason: minor insomnia Last Admin: 07/20/23 22:39 Dose: 50 mg Quetiapine Fumarate (Quetiapine Fumarate 100 Mg Tablet) 100 mg PO BEDTIME PRN PRN Reason: major insomnia Last Admin: 07/21/23 22:52 Dose: 100 mg Venlafaxine HCl (Venlafaxine Hcl Er 75 Mg Cap.Er.24h) 75 mg PO DAILY [facility] Last Admin: 07/23/23 08:33 Dose: 75 mg Allergies Allergies Allergy/AdvReac Type Severity Reaction Status Date / Time No Known Allergies Allergy Verified 03/02/23 13:28 Assessment & Plan Assessment & Plan (1) Carpal tunnel syndrome on both sides: Status: Acute Code(s): G56.03 - Carpal tunnel syndrome, bilateral upper limbs Assessment and Plan: 38 years old man who probably has bilateral carpal tunnel syndrome. He was advised to have appropriate investigation when he was discharged. In the meantime bilateral wrist splints during sleep are recommended. I would advise against using pain medicine especially habit-forming pain medicine for this condition. It is treated with nightly wrist splints, cortisone injection after proper investigation, and sometime with surgery. He should avoid repetitive hand motion. 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 start remeron 30 mg ay HS for insomnia. increase to 45 mg QHS as indicated. seroquel 50-100 mg at HS for insomnia backup or to use as mainstay of insomnia therapy if remeron proves to be inadequate. neuro consult for evaluation of neuropathy in hands/arms B/L. ativan per [place] protocol for alcohol withdrawal. no oxycodone in 10 days so no withdrawal anticipated. T/C suboxone, as pt has been addicted to opioids for about 2+ years now. 07/19: Continue treatment plan. 07/20: Increase PRN Vistaril to 50 mg. Continue current management and treatment plan. 07/21: increase effexor XR to 75 mg as of today. start gabapentin 300 TID for neuropathic pain today. start naltrexone 50 mg daily for opioid and alcohol use disorders today. neuro consult for neuropathic pain. 07/22: increase gabapentin to 600 TID. increase remeron to 45 mg QHS. otherwise continue current mgmt. considering friday discharge. 07/23: appreciate neuro input re likely B/L CTS Dx. more agitated, irritable, active today. check UDS. pt informed to make use of NRT for now. slept well last night. continue current mgmt. Reason for continued inpatient stay Substantial Risk for: inability to function and rapid decompensation Time Spent With Patient Time: Total time managing care of this patient today __35__ minutes.
[2023-07-23 18:12] LABS: Amphetamine Screen Urine Not Detected (Not Detect); Barbiturates, Urine Not Detected (Not Detect); Benzodiazepines Screen Urine Not Detected (Not Detect); Cannabinoid Screen Urine Not Detected (Not Detect); Cocaine Screen Urine Not Detected (Not Detect); Fentanyl, urine Not Detected (Not Detect); Opiate Screen Urine Not Detected (Not Detect); Phencyclidine Screen Urine Not Detected (Not Detect)
[2023-07-23] MEDS: QUEtiapine Fumarate 100 MG TABLET PO (20:41)
[2023-07-23] MEDS: Mirtazapine 15 MG TABLET 45 MG PO (22:46)
[2023-07-23 22:50] VITALS: BP 143/74; PULSE 87; TEMP 36.8; O2SAT 98
[2023-07-24] MEDS: QUEtiapine Fumarate 50 MG TABLET PO (03:28)
[2023-07-24 07:00] VITALS: BMI 23.7
[2023-07-24 07:51] VITALS: BP 125/82; PULSE 79; RESP 16; TEMP 36.3; O2SAT 98
[2023-07-24] MEDS: Naltrexone HCl 50 MG TABLET PO (07:59)
[2023-07-24] MEDS: Venlafaxine HCl ER 75 MG CAP.ER.24H PO (07:59)
[2023-07-24] MEDS: Gabapentin 300 MG CAPSULE 600 MG PO (07:59)
[2023-07-24] MEDS: Nicotine 21 MG PATCH.TD24 TRANSDERMA (07:59)
[2023-07-24] MEDS: Nicotine Polacrilex 2 MG GUM 4 MG BUCCAL ×5 (07:59→20:20)
[2023-07-24] MEDS: Docusate Sodium 100 MG CAPSULE 200 MG PO ×2 (07:59→21:30)
[2023-07-24] MEDS: hydrOXYzine HCL 50 MG TABLET PO (09:32)
--- NOTE | 2023-07-24 14:29 | P.PNPSI_ITS ---
Subjective Subjective Date of Service: 07/24/23 Reason For Visit: SI/depression Interim History: more calm today. pleasant, cooperative. states he slept well last night , getting seroquel 150 mg. asking for seroquel PRNs during the day, will try 25 mg tabs. reports hands are improved but pain in hand may be one thing that awakened him in the night, asks to increase gabapentin. dosing increased to 900 mg TID as of this afternoon. per staff, hypomanic yesterday. yelled at staff, slammed door yesterday morning. Mental Status Exam Mental Status Exam Narrative: adequately dressed and groomed. no PMA/PMR. calm, cooperative. speech incr rate, nml amount; nml loudness, tone, latency. thoughts linear and logical. affect full range, normo-intense, non-labile. mood improved. no SI/HI/AVH expressed. Diagnostics Vital Signs (24Hr): Vital Signs - 24 hr 07/23/23 22:50 07/24/23 07:51 Temperature 98.2 F 97.4 F Pulse Rate 87 79 Respiratory Rate 16 Blood Pressure 143/74 H 125/82 Pulse Oximetry 98 98 Oxygen Delivery Method Room Air Room Air BMI result Body Mass Index 23.7 Labs 07/16/23 23:59 07/16/23 23:59 Labs: Laboratory Results - last 48 hr 07/23/23 17:40 Urine Opiates Screen Not Detected Urine Fentanyl Screen Not Detected Ur Barbiturates Screen Not Detected Ur Phencyclidine Scrn Not Detected Ur Amphetamines Screen Not Detected U Benzodiazepines Scrn Not Detected Urine Cocaine Screen Not Detected U Marijuana (THC) Screen Not Detected Medications Medications Current Medications Acetaminophen (Acetaminophen 325 Mg Tablet) 650 mg PO Q6H PRN PRN Reason: Headache/Pain Mild Scale (1-3) Last Admin: 07/21/23 08:40 Dose: 650 mg Al Hydroxide/Mg Hydroxide (Magnesium Hydrox/Alum Hydrox 30 Ml Oral.Susp) 30 ml PO Q6H PRN PRN Reason: Heartburn/Nausea Docusate Sodium (Docusate Sodium 100 Mg Capsule) 200 mg PO BID TIM Last Admin: 07/24/23 07:59 Dose: 200 mg Gabapentin (Gabapentin 300 Mg Capsule) 900 mg PO TID TIM Magnesium Hydroxide (Milk Of Magnesia 30 Ml Oral.Susp) 30 ml PO DAILY PRN PRN Reason: Constipation Last Admin: 07/21/23 08:40 Dose: 30 ml Mirtazapine (Mirtazapine 15 Mg Tablet) 45 mg PO BEDTIME [facility] Last Admin: 07/23/23 22:46 Dose: 45 mg Naltrexone HCl (Naltrexone Hcl 50 Mg Tablet) 50 mg PO DAILY [facility] Last Admin: 07/24/23 07:59 Dose: 50 mg Nicotine (Nicotine 21 Mg Patch.Td24) 21 mg TRANSDERMA DAILY [facility] Last Admin: 07/24/23 07:59 Dose: 21 mg Nicotine Polacrilex (Nicotine Polacrilex 2 Mg Gum) 4 mg BUCCAL Q2H PRN PRN Reason: Nicotine Cravings Last Admin: 07/24/23 13:21 Dose: 4 mg Polyethylene Glycol (Polyethylene Glycol 3350 17 Gm Powd.Pack) 17 gm PO DAILY PRN PRN Reason: constipation Quetiapine Fumarate (Quetiapine Fumarate 50 Mg Tablet) 50 mg PO BEDTIME PRN PRN Reason: minor insomnia Last Admin: 07/24/23 03:28 Dose: 50 mg Quetiapine Fumarate (Quetiapine Fumarate 100 Mg Tablet) 100 mg PO BEDTIME PRN PRN Reason: major insomnia Last Admin: 07/23/23 20:41 Dose: 100 mg Quetiapine Fumarate (Quetiapine Fumarate 25 Mg Tablet) 25 mg PO Q4H PRN PRN Reason: anxiety Venlafaxine HCl (Venlafaxine Hcl Er 75 Mg Cap.Er.24h) 75 mg PO DAILY [facility] Last Admin: 07/24/23 07:59 Dose: 75 mg Allergies Allergies Allergy/AdvReac Type Severity Reaction Status Date / Time No Known Allergies Allergy Verified 03/02/23 13:28 Assessment & Plan Assessment & Plan (1) Carpal tunnel syndrome on both sides: Status: Acute Code(s): G56.03 - Carpal tunnel syndrome, bilateral upper limbs Assessment and Plan: 38 years old man who probably has bilateral carpal tunnel syndrome. He was advised to have appropriate investigation when he was discharged. In the meantime bilateral wrist splints during sleep are recommended. I would advise against using pain medicine especially habit-forming pain medicine for this condition. It is treated with nightly wrist splints, cortisone injection after proper investigation, and sometime with surgery. He should avoid repetitive hand motion. 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 start remeron 30 mg ay HS for insomnia. increase to 45 mg QHS as indicated. seroquel 50-100 mg at HS for insomnia backup or to use as mainstay of insomnia therapy if remeron proves to be inadequate. neuro consult for evaluation of neuropathy in hands/arms B/L. ativan per [facility] protocol for alcohol withdrawal. no oxycodone in 10 days so no withdrawal anticipated. T/C suboxone, as pt has been addicted to opioids for about 2+ years now. 07/19: Continue treatment plan. 07/20: Increase PRN Vistaril to 50 mg. Continue current management and treatment plan. 07/21: increase effexor XR to 75 mg as of today. start gabapentin 300 TID for neuropathic pain today. start naltrexone 50 mg daily for opioid and alcohol use disorders today. neuro consult for neuropathic pain. 07/22: increase gabapentin to 600 TID. increase remeron to 45 mg QHS. otherwise continue current mgmt. considering friday discharge. 07/23: appreciate neuro input re likely B/L CTS Dx. more agitated, irritable, active today. check UDS. pt informed to make use of NRT for now. slept well last night. continue current mgmt. 07/24: hand pain continues, increase gabapentin to 900 mg TID. add seroquel 25 mg PRNs throughout the day for agitation. otherwise continue current mgmt. D/C tomorrow or friday. Reason for continued inpatient stay Substantial Risk for: inability to function and rapid decompensation Time Spent With Patient Time: Total time managing care of this patient today __25__ minutes.
[2023-07-24] MEDS: Gabapentin 300 MG CAPSULE 900 MG PO ×2 (15:47→21:30)
[2023-07-24] MEDS: QUEtiapine Fumarate 25 MG TABLET PO (15:48)
[2023-07-24 19:30] VITALS: BP 130/67; PULSE 73; RESP 16; TEMP 36.7; O2SAT 99
[2023-07-24] MEDS: Mirtazapine 15 MG TABLET 45 MG PO (21:30)
[2023-07-24] MEDS: QUEtiapine Fumarate 100 MG TABLET PO (21:30)
[2023-07-25] MEDS: QUEtiapine Fumarate 25 MG TABLET PO ×2 (05:43→10:38)
[2023-07-25] MEDS: Nicotine Polacrilex 2 MG GUM 4 MG BUCCAL ×3 (06:18→12:13)
[2023-07-25 07:10] VITALS: BP 147/78; PULSE 71; RESP 18; TEMP 36.6; O2SAT 99
[2023-07-25] MEDS: Naltrexone HCl 50 MG TABLET PO (08:24)
[2023-07-25] MEDS: Docusate Sodium 100 MG CAPSULE 200 MG PO (08:25)
[2023-07-25] MEDS: Nicotine 21 MG PATCH.TD24 TRANSDERMA (08:25)
[2023-07-25] MEDS: Venlafaxine HCl ER 75 MG CAP.ER.24H PO (08:25)
[2023-07-25] MEDS: Gabapentin 300 MG CAPSULE 900 MG PO (08:25)
[2023-07-25] MEDS: polyethylene glycoL 3350 17 GM POWD.PACK PO (09:59)
--- NOTE | 2023-07-25 11:37 | P.DS_ITS ---
DS: Providers Provider Date of Service: 07/25/23 Date of admission: 07/17/23 13:32 Primary care physician: None Physician Consults: 07/21/23 10:26 Consult to Neurology Routine Consulting Provider: [facility] Reason for consultation: peripheral neuropathy in tree-cathryn; eval and Tx Has provider been notified: No DS: Diagnosis Discharge Diagnosis (1) Carpal tunnel syndrome on both sides: Status: Acute (2) Alcohol use disorder: Status: Acute (3) Opiate use: Status: Acute (4) Depression: Status: Acute DS: Medications Discharge Medications Home Medications: Previous Rx's Medication Instructions Recorded docusate sodium 100 mg capsule 200 mg (2 x 100 mg) PO BID 30 days 07/25/23 #120 caps gabapentin 400 mg capsule 1,200 mg (3 x 400 mg) PO TID 30 07/25/23 days #270 caps mirtazapine 15 mg tablet 45 mg (3 x 15 mg) PO BEDTIME 30 07/25/23 days #90 tabs naloxone 4 mg/actuation nasal 4 mg intranasal Q2M PRN opioid 07/25/23 spray (Narcan) overdose 1 day #2 ea naltrexone 50 mg tablet 50 mg PO DAILY 30 days #30 tabs 07/25/23 nicotine (polacrilex) 2 mg gum 4 mg buccal Q2H PRN Nicotine 07/25/23 Cravings 30 days #396 ea nicotine 21 mg/24 hr daily 21 mg transdermal DAILY 28 days 07/25/23 transdermal patch #28 ea polyethylene glycol 3350 17 gram 17 g PO DAILY PRN constipation 30 07/25/23 oral powder packet days #30 ea quetiapine 100 mg tablet 150 mg (1.5 x 100 mg) PO BEDTIME 07/25/23 major insomnia 30 days #45 tabs quetiapine 25 mg tablet 50 mg (2 x 25 mg) PO TID PRN 07/25/23 anxiety 30 days #180 tabs venlafaxine 75 mg capsule,extended 75 mg PO DAILY 30 days #30 caps 07/25/23 release 24 hr Mental Status Exam Mental Status Exam Narrative: adequately dressed and groomed. no PMA/PMR. calm, cooperative. speech incr rate, nml amount; nml loudness, tone, latency. thoughts linear and logical. affect full range, normo-intense, non-labile. mood good. no SI/HI/AVH. Data Data Completed and Pending Completed studies during hospitalization [Text1]: 07/23/23 17:40 Urine Opiates Screen Not Detected Urine Fentanyl Screen Not Detected Ur Barbiturates Screen Not Detected Ur Phencyclidine Scrn Not Detected Ur Amphetamines Screen Not Detected U Benzodiazepines Scrn Not Detected Urine Cocaine Screen Not Detected U Marijuana (THC) Screen Not Detected DS: Summary Hospital Course Hospital Course: per 07/18 admission note: per CARE team evaluation, pt self-presented to ED c/o depression, alcohol use disorder, and opioid use disorder. he denied SI to clinicians but collateral from [facility] indicated he had recently been expressing SI at home. he reported a h/o physical injury and prescription for oxycodone, which then became and habit and then a substance of abuse. when he is unable to obtain oxycodone he drinks more heavily. he reported he has not had any oxycodone for 10 days and in the past 10 days has substantially increased his alcohol consumption. he c/o severe insomnia as a primary target symptom. he has been unable to work the past several weeks due to his insomnia, depression, and substance use. 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 in the past several weeks, as he has stopped working, this pain has subsided. 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 on interview with MD, pt was polite, calm, well-related, and engaged. he identified opioid addiction, alcohol addiction, depression/insomnia, and neuropathic pain as his problems. he identified insomnia and depression as target symptoms. R/B of medications and other approaches to the identified problems were discussed. in order to target pt's most salient symptom of insomnia, pt agreed to try remeron with seroquel back-up. for depression and neuropathic pain he agreed to start effexor. he was interested in a neurology consult for his bi-manual sensory, pain, and strength complaints. he will use ativan per [facility] protocol for alcohol withdrawal and will consider suboxone therapy for his opioid use disorder. Past Psychiatric History: hosps: none SA: none SIB: none HIB: none outpt: no Hx Medical Evaluation Reviewed: Yes [facility] Family History: denies Social History: HS grad. lives with his fredye and two children in a home they own. 14 yo, his bio child, and 9 yo, his step-child. 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 [email or web address] vet, other than honorable discharge (briefly AWOL and admitted cannabis use trying to get out of service so he could be with his partner). Substance History: tobacco - 1.5 ppd alcohol - vodka 1-1.5 pints per day. no h/o Tx. no detox, no withdrawal Sz Hx. cannabis - once every other week opioids - oxycodone 30 mg 8 times daily when available, none for the past 10 days stimulants - none cocaine - none in the past year hallucinogenic mushrooms - microdosing for several days about 6 months ago Trauma History: i was in the [email or web address]. that was traumatic enough. 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 start remeron 30 mg ay HS for insomnia. increase to 45 mg QHS as indicated. seroquel 50-100 mg at HS for insomnia backup or to use as mainstay of insomnia therapy if remeron proves to be inadequate. neuro consult for evaluation of neuropathy in hands/arms B/L. ativan per [facility] protocol for alcohol withdrawal. no oxycodone in 10 days so no withdrawal anticipated. T/C suboxone, as pt has been addicted to opioids for about 2+ years now. 07/19: Continue treatment plan. 07/20: Increase PRN Vistaril to 50 mg. Continue current management and treatment plan. 07/21: increase effexor XR to 75 mg as of today. start gabapentin 300 TID for neuropathic pain today. start naltrexone 50 mg daily for opioid and alcohol use disorders today. neuro consult for neuropathic pain. 07/22: increase gabapentin to 600 TID. increase remeron to 45 mg QHS. otherwise continue current mgmt. considering friday discharge. 07/23: appreciate neuro input re likely B/L CTS Dx. more agitated, irritable, active today. check UDS. pt informed to make use of NRT for now. slept well last night. continue current mgmt. 07/24: hand pain continues, increase gabapentin to 900 mg TID. add seroquel 25 mg PRNs throughout the day for agitation. otherwise continue current mgmt. D/C tomorrow or friday. 07/25: increase gabapentin to 1200 TID, no side effects or sedation whatsoever. increase seroquel PRNs to 50 mg each. schedule seroquel 150 QHS. discharge today. Time Spent with Patient Time attestation: Total time managing care of this patient today ____ minutes. Time spent: Greater than 30 minutes Discharge Plan Discharge Anticipated Discharge Date/Time: 07/25/23 13:00 Patient Disposition: Home, Self-Care Discharge Diagnosis: Depressive Disorder NOS Anxiety Disorder NOS Alcohol Use Disorder Opioid Use Disorder Tobacco Use Disorder Referrals: Cielo Torres (Therapy) [Other] - 08/01/23 2:00 pm (IN OFFICE APPOINTMENT -Please arrive fifteen minutes early to your appointment in order to fill out necessary paperwork. ) Silvai Leblanc (Psychiatry) [Other] - 08/28/23 10:15 am (TELEHEALTH APPOINTMENT -Psychiatric Evaluation ) Silvia Leblanc (Psychiatry) [Other] - 09/29/23 11:30 am (TELEHEALTH APPOINTMENT -Medication Management ) Physician,None [Primary Care Provider] - 1 Week Discharge Medications: New nicotine (polacrilex) 2 mg Gum 4 mg buccal Q2H PRN (Reason: Nicotine Cravings) 30 Days Qty: 396 0RF nicotine 21 mg/24 hr Patch 24 Hour 21 mg transdermal DAILY 28 Days Qty: 28 0RF quetiapine 25 mg Tablet 50 mg PO TID PRN (Reason: anxiety) 30 Days Qty: 180 0RF naltrexone 50 mg Tablet 50 mg PO DAILY 30 Days Qty: 30 0RF gabapentin 400 mg Capsule 1,200 mg PO TID 30 Days Qty: 270 0RF quetiapine 100 mg Tablet 150 mg PO BEDTIME 30 Days Qty: 45 0RF mirtazapine 15 mg Tablet 45 mg PO BEDTIME 30 Days Qty: 90 0RF venlafaxine 75 mg Capsule,Extended Release 24hr 75 mg PO DAILY 30 Days Qty: 30 0RF polyethylene glycol 3350 17 gram Powder In Packet 17 g PO DAILY PRN (Reason: constipation) 30 Days Qty: 30 0RF docusate sodium 100 mg Capsule 200 mg PO BID 30 Days Qty: 120 0RF naloxone [Narcan] 4 mg/actuation spray,non-aerosol 4 mg intranasal Q2M PRN (Reason: opioid overdose) 1 Days Qty: 2 0RF Rx Instructions: spray 1 dose into ONE nostril; alternate nostrils w each dose until help arrives Discharge Orders: Discharge Order (Routine); Ordered 07/25/23 Ordered By: Castro Roman Diet: Advance to usual diet Activity on Discharge: As tolerated Stand Alone Forms: Patient Portal Discharge page, Community Support Care Plan Goals: remain safe, stable, and sober in the outpatient treatment setting Health Concerns: Carpal Tunnel Syndrome (CTS) Plan of Treatment: take medications as prescribed, attend appointments as scheduled. arrange for definitive treatment of CTS as soon as possible. Assessment: not at imminent risk of harm to self or others
--- NOTE | 2023-07-25 13:28 | PC.NURSE ---
Patient discharged with belongings at 13:00 accompanied by Ninfa Snow. Pt reported readiness for discharge. Educated on medications, appointments. Patient verbalized understanding of D/C instructions.
--- NOTE | 2023-07-25 13:38 | PC.NURSE ---
Patient said he doesn't have PCP, will attend his appointments at the [facility] in [place].
== END 2023-07-25 13:00 | disposition home or self-care (01) | DRG 754 ==
LOC: HO.ED 07-17 03:31 → HO.PADLT16 07-17 13:32
PROVIDERS: Admitting Provider Psychiatry & Neurology Psychiatry; Emergency Provider Emergency Medicine Emergency Medical Services; Visit Provider Psychiatry & Neurology Psychiatry
DX: F32.A Depression, unspecified (principal); R45.851 Suicidal ideations; F10.929 Alcohol use, unspecified with intoxication, unspecified; F11.10 Opioid abuse, uncomplicated; F17.210 Nicotine dependence, cigarettes, uncomplicated; Z20.822 Contact with and (suspected) exposure to COVID-19; Y90.5 Blood alcohol level of 100-119 mg/100 ml; G56.03 Carpal tunnel syndrome, bilateral upper limbs; F41.9 Anxiety disorder, unspecified; Z71.6 Tobacco abuse counseling; Z79.899 Other long term (current) drug therapy
CPT/HCPCS: 36415; 80053; 80061; 80307; 81003; 82607; 82746; 83036; 84439; 84443; 85025; 87635; 99285; S9485

== ENCOUNTER → 2023-07-17 13:32 | Outpatient (BNV) | payer MEDICAID, OTHER, SELFPAY | PROVIDERS: Admitting Provider Psychiatry & Neurology Psychiatry; Emergency Provider Emergency Medicine Emergency Medical Services; Visit Provider Psychiatry & Neurology Psychiatry | DX: F33.2 Major depressive disorder, recurrent severe without psychotic features (principal); F10.90 Alcohol use, unspecified, uncomplicated; F11.90 Opioid use, unspecified, uncomplicated; G56.03 Carpal tunnel syndrome, bilateral upper limbs | CPT/HCPCS: 99231; 99232; 99233 ==

== ENCOUNTER 2023-09-03 20:08 | Inpatient (IN) | payer OTHER, SELFPAY ==
[2023-09-03 20:25] VITALS: BP 131/85; BP 140/86; PULSE 84; PULSE 92; RESP 18; TEMP 37; O2SAT 97; O2SAT 98; BMI 21.0
--- NOTE | 2023-09-03 20:54 | MHC.CARE ---
Diana supervisor electron tube processing from [facility] called to report that pt will be coming to ED by EMS voluntarily. She reports pt was in [facility] art [facility] and became easily agitated. He told [facility] he would wrap his belt around his neck and was dysregulated. Pt stated that he was going to leave and later de-escalated and agreed to come to ED. [facility] did not evaluate him, pt will need an evluation.
--- NOTE | 2023-09-03 21:06 | ED_ITS ---
HPI - Psych General Chief Complaint: Psychiatric Symptoms Stated Complaint: SI FROM [facility] Source: patient Mode of arrival: EMS Limitations: no limitations History of Present Illness HPI Narrative: Patient comes to the emergency room from [facility]. Patient states that he went there voluntarily, patient states that for 3 days they have been making states with his medications and patient had to correct him several times. Patient admits that earlier today he said that if the wound that him go, he would do something to hurt himself. Patient states that he said this out of. Pretty frustration because he has not getting his gabapentin as prescribed and he has not getting his medications for anxiety as requested. Patient denies HI Related Data Home Medications Medication Instructions Recorded Confirmed quetiapine 100 mg tablet 150 mg PO BEDTIME insomnia 09/03/23 09/03/23 venlafaxine 75 mg capsule,extended 150 mg PO DAILY 09/03/23 09/03/23 release 24 hr Previous Rx's Medication Instructions Recorded gabapentin 400 mg capsule 1,200 mg (3 x 400 mg) PO TID 30 07/25/23 days #270 caps mirtazapine 15 mg tablet 45 mg (3 x 15 mg) PO BEDTIME 30 07/25/23 days #90 tabs naltrexone 50 mg tablet 50 mg PO DAILY 30 days #30 tabs 07/25/23 nicotine (polacrilex) 2 mg gum 4 mg buccal Q2H PRN Nicotine 07/25/23 Cravings 30 days #396 ea nicotine 21 mg/24 hr daily 21 mg transdermal DAILY 28 days 07/25/23 transdermal patch #28 ea quetiapine 25 mg tablet 50 mg (2 x 25 mg) PO TID PRN 07/25/23 anxiety 30 days #180 tabs Allergies Allergy/AdvReac Type Severity Reaction Status Date / Time No Known Allergies Allergy Verified 03/02/23 13:28 Review of Systems Review of Systems: Constitutional : No Weight loss, No Fever, No Chills, No Night Sweats, No Fatigue, No Malaise ENT/Mouth : No Hearing loss, No Ear Pain, No Nasal Congestion, No Sinus Pain, No Hoarseness, No sore throat, No Rhinorrhea, No Swallowing Difficulty Eyes: No Eye Pain, No Swelling, No Redness, No Foreign Body, No Discharge, No Vision Changes Cardiovascular : No Chest Pain, No SOB, No Dyspnea on Exertion, No Orthopnea, No Edema, No Palpitations Respiratory : No Cough, No Sputum, No Wheezing, No Smoke Exposure, No Dyspnea Gastrointestinal : No Nausea, No Vomiting, No Diarrhea, No Constipation, No abdominal Pain, No Hematochezia, No Melena Genitourinary : no irregular bleeding, No Dysuria, No Urinary Frequency, No Hematuria, No Urinary Incontinence, No Urgency, No Flank Pain, No Urinary Flow Changes, No Hesitancy Musculoskeletal : No joint pain, No Myalgias, No Joint Swelling Skin : No Skin Lesions, No rash Neuro : No Weakness, No Numbness, No Paresthesias, No Loss of Consciousness, No Dizziness, No Headache Psych : Complaining of anxiety, depression, admits to drinking alcohol Heme/Lymph: No Bruising, No Bleeding,No Lymphadenopathy Endocrine : No Polyuria, No Polydipsia, No Temperature Intolerance [facility] Past Medical History Medical History (Updated 09/03/23 @ 21:09 by Judy Alejandra MD) Alcohol use disorder Opiate use Depression Social History Social History Household Members: Spouse Housing: Apartment Do you presently have visiting nurse or other home services: No Patient Tobacco Use Status: Current everyday Tobacco user Tobacco use type: Cigarette Cigarette Packs Per Day: 1.5 Cigarettes Per Day: 30.0 e-Cigarette/Vaping Use: Never Used Second Hand Smoke Exposure: No Substance Use Type: Opiates service: No Sexual orientation: Straight/Heterosexual Physical Exam Vital Signs: Vital Signs: Last Vital Signs Temp 98.6 F 09/03/23 20:25 Pulse 84 09/03/23 20:25 Resp 18 09/03/23 20:25 BP 131/85 09/03/23 20:25 Pulse Ox 97 09/03/23 20:25 O2 Del Method Room Air 09/03/23 20:25 BMI result Body Mass Index 21.0 Const: Other: Appearance: Alert. Oriented X3. No acute distress. Eyes: Pupils equal, round and reactive to light. ENT: Pharynx normal. Neck: Normal inspection. Neck supple. No lymph nodes noted. No crepitus CVS: Normal heart rate and rhythm. Pulses normal. Normal S1 and S2 Respiratory: No respiratory distress. Breath sounds normal. No Wheezing. No rales Abdomen: Soft and nontender. No rigidity. No distention. Skin: Skin warm and dry. Normal skin color. Normal skin turgor. Extremities: No lower extremity edema. No Lacerations. No Rash Neuro: Oriented X 3. No motor deficit. No sensory deficit. Moving all extremities. No slurred speech. CN 2 through 12 grossly intact Psych: calm, cooperative, normal affect Course Course Course Narrative: -all of patient's labs pending -care team consult pending -sign out given to Dr. Vance Discharge Plan Discharge Clinical Impression: Acute anxiety Patient Disposition: Still a Patient Prescriptions: No Action nicotine (polacrilex) 2 mg Gum 4 mg buccal Q2H PRN (Reason: Nicotine Cravings) 30 Days Qty: 396 0RF nicotine 21 mg/24 hr Patch 24 Hour 21 mg transdermal DAILY 28 Days Qty: 28 0RF quetiapine 25 mg Tablet 50 mg PO TID PRN (Reason: anxiety) 30 Days Qty: 180 0RF naltrexone 50 mg Tablet 50 mg PO DAILY 30 Days Qty: 30 0RF gabapentin 400 mg Capsule 1,200 mg PO TID 30 Days Qty: 270 0RF quetiapine 100 mg Tablet 150 mg PO BEDTIME 30 Days Qty: 45 0RF mirtazapine 15 mg Tablet 45 mg PO BEDTIME 30 Days Qty: 90 0RF venlafaxine 75 mg Capsule,Extended Release 24hr 75 mg PO DAILY 30 Days Qty: 30 0RF polyethylene glycol 3350 17 gram Powder In Packet 17 g PO DAILY PRN (Reason: constipation) 30 Days Qty: 30 0RF docusate sodium 100 mg Capsule 200 mg PO BID 30 Days Qty: 120 0RF naloxone [Narcan] 4 mg/actuation spray,non-aerosol 4 mg intranasal Q2M PRN (Reason: opioid overdose) 1 Days Qty: 2 0RF Rx Instructions: spray 1 dose into ONE nostril; alternate nostrils w each dose until help sandee echols
[2023-09-03 21:09] LABS: MANUAL DIFF FLAG NO
[2023-09-03 21:11] LABS: Basophils Absolute Auto 0.1 X10*3/uL (0.0-0.2); Eosinophils Absolute Auto 0.1 X10*3/uL (0.0-0.4); Eosinophils Percent Auto 2.3 % (0-4); Hematocrit 38.8 % (42.0-52.0); Hemoglobin 13.8 g/dl (14.0-18.0); Imm Gran Abs Auto 0.01 X10*3/uL (0.00-0.03); Imm Gran Pct Auto 0.2 % (0.0-0.4); Lymphocytes Percent Auto 33.2 % (20-40); Mean Corpuscular HGB Conc 35.6 g/dl (31.0-36.0); Mean Corpuscular Hemoglobin 31.6 pg (27.0-33.0); Mean Corpuscular Volume 88.8 fL (80.0-98.0); Monocytes Absolute Auto 0.5 X10*3/uL (0.1-1.2); Monocytes Percent Auto 7.5 % (2-11); Neutrophils Absolute Auto 3.3 x10*3/uL (2.0-8.3); Neutrophils Percent Auto 55.8 % (45-73); Platelet Count 222 X10*3/uL (160-400); Red Blood Count 4.37 X10*6/uL (4.60-5.80)
[2023-09-03 21:16] LABS: Appearance Urine Clear; Color Urine Yellow; Glucose Urine UA Negative (Negative); Leukocyte Esterase Urine Negative (Negative); Nitrite Urine Negative (Negative); Urine Blood Negative (Negative); Urine Ketones Negative (Negative); Urine Protein Negative (Neg-Trace)
[2023-09-03 21:18] LABS: Amphetamine Screen Urine Not Detected (Not Detect); Barbiturates, Urine Not Detected (Not Detect); Benzodiazepines Screen Urine Not Detected (Not Detect); Cannabinoid Screen Urine Not Detected (Not Detect); Cocaine Screen Urine Not Detected (Not Detect); Fentanyl, urine Not Detected (Not Detect); Opiate Screen Urine Not Detected (Not Detect); Phencyclidine Screen Urine Not Detected (Not Detect)
[2023-09-03 21:24] LABS: COVID-19 Test Negative (Negative); IDNOW Serial# 6674DD1D
[2023-09-03 21:29] LABS: Alanine Aminotransferase 32 U/L (0-40); Albumin Level 4.1 g/dL (3.5-5.0); Alkaline Phosphatase 71 U/L (39-117); Anion Gap 13 (12-20); Aspartate Amino Transferase 31 U/L (5-37); Bilirubin Total 0.3 mg/dL (0.0-1.0); Blood Urea Nitrogen 13 mg/dL (9-16); Calcium 9.2 mg/dL (8.4-10.2); Carbon Dioxide 27 mmol/L (22-29); Chloride 105 mmol/L (96-108); Creatinine Clr Calc Pharmacy 78.8; Estimated Glomerular Filt Rate > 60; Ethanol < 10 mg/dL; Glucose Random 91 mg/dL (60-115); Potassium 3.6 mmol/L (3.3-5.1); Sodium 141 mmol/L (135-145); Total Protein 7.2 g/dL (6.5-8.0)
[2023-09-03 23:41] VITALS: BP 137/94; PULSE 72; RESP 17; TEMP 36.6; O2SAT 99
[2023-09-03] MEDS: QUEtiapine Fumarate 50 MG TABLET 150 MG PO (23:43)
[2023-09-03] MEDS: Mirtazapine 15 MG TABLET 45 MG PO (23:44)
[2023-09-03] MEDS: Gabapentin 400 MG CAPSULE 1200 MG PO (23:44)
--- NOTE | 2023-09-04 08:21 | ECG_ITS ---
Test Reason : check qt Blood Pressure : / mmHG Vent. Rate : 060 BPM Atrial Rate : 060 BPM P-R Int : 150 ms QRS Dur : 092 ms QT Int : 386 ms P-R-T Axes : 075 054 046 degrees QTc Int : 386 ms Normal sinus rhythm with sinus arrhythmia Normal ECG No previous ECGs available Referred By: Judy Alejandra Electronically Signed By:MARIZA LOPEZ MD
[2023-09-04] MEDS: Nicotine 21 MG PATCH.TD24 TRANSDERMA (09:00)
[2023-09-04] MEDS: Naltrexone HCl 50 MG TABLET PO (09:01)
[2023-09-04] MEDS: Gabapentin 400 MG CAPSULE 1200 MG PO ×3 (09:01→21:51)
[2023-09-04] MEDS: Venlafaxine HCl ER 150 MG CAP.ER.24H PO (09:01)
[2023-09-04] MEDS: QUEtiapine Fumarate 50 MG TABLET PO ×3 (09:07→16:41)
[2023-09-04 09:49] VITALS: BP 132/78; PULSE 68; RESP 18; TEMP 36.4; O2SAT 98
[2023-09-04] MEDS: Nicotine Polacrilex 2 MG GUM 4 MG BUCCAL ×5 (10:43→21:04)
[2023-09-04] MEDS: hydrOXYzine HCL 25 MG TABLET PO ×2 (12:15→20:24)
--- NOTE | 2023-09-04 12:50 | PC.NURSE ---
Assumed care of patient at 1100, patient calm and cooperative at this time, requesting PRNs without issue. Pt is aware of plan for admission, signed CV
--- NOTE | 2023-09-04 14:34 | PHA.MEDREC ---
Pharmacy Consult ? Medication Reconciliation Pharmacy has reviewed the medication reconciliation completed by Tammy. Dayana Law, PharmD
[2023-09-04 15:00] VITALS: BP 147/75; PULSE 66; RESP 18; O2SAT 100
[2023-09-04 18:00] VITALS: BP 142/75; PULSE 65; RESP 16; TEMP 36.2; O2SAT 100
[2023-09-04] MEDS: QUEtiapine Fumarate 50 MG TABLET 150 MG PO (21:52)
[2023-09-04] MEDS: traZODone HCL 50 MG TABLET PO ×2 (21:52→23:42)
[2023-09-04] MEDS: Mirtazapine 15 MG TABLET 45 MG PO (21:52)
--- NOTE | 2023-09-04 23:35 | PC.ADMIT ---
Patient is a 38 year old Mongolian speaking male admitted as a CV admission to at 1445 and placed on 15 minute safety checks. Patient was medically cleared in the [facility] ED, evaluated by the CARE team and deemed in need of IPLOC secondary to threatening suicide at respite if he was not allowed to leave. Patient said his depression and anxiety have been increasing since his discharge from [facility] July of 2023 and he did not feel that his current medications were helpful. The patient said that he did not want to leave in July because he was still feeling depressed. He said that the chronic pain in both hands has caused him a lot of anxiety because he is not able to get into see a PCP and therefore unable to get a referral to a hand specialist. 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 The patient said that he is due to get in October and feels helpless with the chronic pain and no one to provide any alternatives. He said that he was frustrated at the respite because he does not take his medications at 2029 but no one was available to give them later. The patient also said he did not feel safe at the respite when the [facility] nurse was trying to give him medication from another patient's bottle. Patient was cooperative with signing legals, answering admission and safety tool questions. Treatment plan and safety tool need to be signed. Patient denied any SI, HI, AH or VH.
[2023-09-05] MEDS: Acetaminophen 325 MG TABLET 650 MG PO (01:29)
[2023-09-05 08:00] VITALS: BP 139/64; PULSE 76; RESP 18; TEMP 36.6; O2SAT 97
[2023-09-05] MEDS: Gabapentin 400 MG CAPSULE 1200 MG PO ×3 (08:17→21:58)
[2023-09-05] MEDS: Venlafaxine HCl ER 150 MG CAP.ER.24H PO (08:17)
[2023-09-05] MEDS: Naltrexone HCl 50 MG TABLET PO (08:17)
[2023-09-05] MEDS: Nicotine 21 MG PATCH.TD24 TRANSDERMA (08:20)
[2023-09-05] MEDS: Nicotine Polacrilex 2 MG GUM 4 MG BUCCAL ×3 (08:23→13:28)
[2023-09-05] MEDS: QUEtiapine Fumarate 50 MG TABLET PO ×3 (08:23→20:07)
[2023-09-05 08:49] LABS: Estimated Average Glucose 94 mg/dL; Hemoglobin A1c % 4.9 % (<6.0)
[2023-09-05 09:00] LABS: Cholesterol 171 mg/dL (<200); HDL Cholesterol 40 mg/dL (>40); Iron 85 mcg/dL (45-160); LDL Cholesterol Calculated 106 mg/dL (<100); Percent Iron Saturation 33 % (15-50); Total Iron Binding Capacity 260 mcg/dL (228-428); Triglycerides 129 mg/dL (<150); Unsaturated Iron Binding 175 ug/dL
[2023-09-05 09:17] LABS: Free T4 (Free Thyroxine) 0.72 ng/dL (0.71-1.85); Thyroid Stimulating Hormone 1.69 uIU/mL (0.32-4.0)
[2023-09-05 09:24] LABS: Vitamin B12 452 pg/mL (200-900)
[2023-09-05] MEDS: hydrOXYzine HCL 25 MG TABLET PO ×2 (09:53→16:33)
--- NOTE | 2023-09-05 16:13 | HO.PSYADMNOT ---
HPI Date of Service: 09/05/23 Chief Complaint: Depression Sources of Information: patient interviewed, chart reviewed and crisis/core team assessment reviewed HPI Subjective Notes: [place] Warning and Conditional Voluntary Healthcare Proxy: No Guardianship: No Medical Problems Affecting Mental Status: No Narrative: 38 yo male, history of recurrent major depression, alcohol use disorder, opiate use disorder. Pt to ER from respite for SI with agitation. He went to [facility] respite for a medication assessment due to anxiety, SI, depression. He was not able to replicate the regime he had recently on M3 and he was almost given an incorrect medication. When he demanded discharge this was denied and he threatened to hang himself at respite. Reports poor sleep/appetite poor attention to ADL's. Reports high anxiety-social anxiety, hypervigilence, depression. 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 Is aware he will most likely need surgery and needs to find an appropriate hand surgeon. Full med review, re-established doses and discussed additions. Discussed life and stressors. Pt plans to on 10/27/23. Past Psychiatric History: hosps: [facility] [place] M3 SA: none SIB: none HIB: none outpt: no Hx Medical Evaluation Reviewed: Yes FOR[facility]LY [facility] Medical History (Updated 09/03/23 @ 21:09 by Judy Alejandra MD) Alcohol use disorder Opiate use Depression Narrative: Carpal Tunnel Syndrome-bilateral Family History: denies Social History: HS grad. lives with his fiancee and two children in a home they own. 14 yo, his bio child, and 9 yo, his step-child. 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 [employer] vet, other than honorable discharge (briefly AWOL and admitted cannabis use trying to get out of service so he could be with his partner). Substance History: Sober from alcohol and opiates Nicotine-smokes and dips Trauma History: i was in the [employer]. that was traumatic enough. Diagnostics Vital Signs (24Hr): Vital Signs - 24 hr 09/04/23 18:00 09/05/23 08:00 Temperature 97.2 F 97.9 F Pulse Rate 65 76 Respiratory Rate 16 18 Blood Pressure 142/75 H 139/64 Pulse Oximetry 100 97 Oxygen Delivery Method Room Air BMI result Body Mass Index 21.0 Labs 09/03/23 20:53 09/03/23 20:52 Labs: Laboratory Results - last 48 hr 09/03/23 09/03/23 09/03/23 20:52 20:53 20:58 WBC 6.0 RBC 4.37 L Hgb 13.8 L Hct 38.8 L MCV 88.8 MCH 31.6 MCHC 35.6 RDW 12.0 Plt Count 222 MPV 11.0 Immature Gran % (Auto) 0.2 Neut % (Auto) 55.8 Lymph % (Auto) 33.2 [place] % (Auto) 7.5 Eos % (Auto) 2.3 Baso % (Auto) 1.0 Lymph # (Auto) 2.0 [place] # (Auto) 0.5 Eos # (Auto) 0.1 Baso # (Auto) 0.1 Abs Immat Gran (auto) 0.01 Absolute Neuts (auto) 3.3 Absolute Nucleated RBC 0.000 Nucleated RBC % (auto) 0.0 Sodium 141 Potassium 3.6 Chloride 105 Carbon Dioxide 27 Anion Gap 13 BUN 13 Creatinine 1.06 Estim Creat Clear Calc 78.8 Estimated GFR > 60 Random Glucose 91 Estimat Average Glucose Hemoglobin A1c % Calcium 9.2 Magnesium Iron TIBC % Saturation Unsat Iron Binding Total Bilirubin 0.3 AST 31 ALT 32 Alkaline Phosphatase 71 Total Protein 7.2 Albumin 4.1 Triglycerides Cholesterol LDL Cholesterol, Calc HDL Cholesterol Vitamin B12 TSH Free T4 Urine Color Yellow Urine Appearance Clear Urine pH 6.0 Ur Specific [place] 1.010 Urine Protein Negative Urine Glucose (UA) Negative Urine Ketones Negative Urine Blood Negative Urine Nitrite Negative Ur Leukocyte Esterase Negative Urine Opiates Screen Not Detected Urine Fentanyl Screen Not Detected Ur Barbiturates Screen Not Detected Ur Phencyclidine Scrn Not Detected Ur Amphetamines Screen Not Detected U Benzodiazepines Scrn Not Detected Urine Cocaine Screen Not Detected U Marijuana (THC) Screen Not Detected Ethyl Alcohol < 10 COVID-19 (TWYLA) Negative COVID-19 Clin Com See Note 09/05/23 08:06 WBC RBC Hgb Hct MCV MCH MCHC RDW Plt Count MPV Immature Gran % (Auto) Neut % (Auto) Lymph % (Auto) Mesa % (Auto) Eos % (Auto) Baso % (Auto) Lymph # (Auto) [place] # (Auto) Eos # (Auto) Baso # (Auto) Abs Immat Gran (auto) Absolute Neuts (auto) Absolute Nucleated RBC Nucleated RBC % (auto) Sodium Potassium Chloride Carbon Dioxide Anion Gap BUN Creatinine Estim Creat Clear Calc Estimated GFR Random Glucose Estimat Average Glucose 94 Hemoglobin A1c % 4.9 Calcium Magnesium 2.0 Iron 85 TIBC 260 % Saturation 33 Unsat Iron Binding 175 Total Bilirubin AST ALT Alkaline Phosphatase Total Protein Albumin Triglycerides 129 Cholesterol 171 LDL Cholesterol, Calc 106 H HDL Cholesterol 40 L Vitamin B12 452 TSH 1.69 Free T4 0.72 Urine Color Urine Appearance Urine pH Ur Specific [place] Urine Protein Urine Glucose (UA) Urine Ketones Urine Blood Urine Nitrite Ur Leukocyte Esterase Urine Opiates Screen Urine Fentanyl Screen Ur Barbiturates Screen Ur Phencyclidine Scrn Ur Amphetamines Screen U Benzodiazepines Scrn Urine Cocaine Screen U Marijuana (THC) Screen Ethyl Alcohol COVID-19 (TWYLA) COVID-19 Clin Com Meds/Allergies Meds Home Medications Medication Instructions Recorded Confirmed Type quetiapine 100 mg tablet 150 mg PO BEDTIME insomnia 09/03/23 09/03/23 History venlafaxine 75 mg capsule,extended 150 mg PO DAILY 09/03/23 09/03/23 History release 24 hr Allergies Allergies Allergy/AdvReac Type Severity Reaction Status Date / Time No Known Allergies Allergy Verified 03/02/23 13:28 Mental Status Exam Mental Status Exam Patient Appearance: Appropriate Patient Orientation: Person, Place, Time and Situation Level of Consciousness: Alert Patient Behavior: Appropriate, Talkative, Cooperative, Anxious and Good Eye Contact Mood Description: Anxious Affect Description: Anxious Patient Cognition Impaired: No Ability to Follow Directions: Good Speech Pattern: Spontaneous Speech Memory Description: Intact Hallucinations: None Delusions: Not Present Perceptual Disturbances: Depersonalization Thought Process: Rumination Thought Content: positive for Perseveration and positive for Suicidal Ideation Depressive Symptoms: Thoughts of /Suicide Judgement: Fair Assessment & Plan Assessment & Plan (1) Depression: Status: Acute Code(s): F32.A - Depression, unspecified (2) Opiate use: Status: Acute Code(s): F11.90 - Opioid use, unspecified, uncomplicated (3) Alcohol use disorder: Status: Acute Code(s): F10.90 - Alcohol use, unspecified, uncomplicated Plan 38 yo male, history of major depression, alcohol and opiate use disorder, sober from both. Pt to ER from [facility] respite with SI/agitation in the context of medication changes and poor coverage in respite. As a result he became anxious and suicidal. Regime re-established and discussion of options. Plan: Collateral contact Trileptal 150 mg bid Patient educated on: medication risk/benefits, therapeutic strategies and medical condition Informed Consent: understands Reason for continued inpatient stay Substantial Risk for: rapid decompensation Statement Statement: I have reviewed the history and physical and performed a pertinent examination on my patient. No changes have occurred unless specified. If the History and Physical was not performed prior to admission, the Hospitalist's service will be consulted for completing the admission physical. Time Spent With Patient Time: Total time managing care of this patient today ____ minutes.
[2023-09-05 17:25] VITALS: BP 148/77; PULSE 117; RESP 16; TEMP 36.8; O2SAT 98
--- NOTE | 2023-09-05 18:49 | PC.NURSE ---
Assumed care of pt at 18:45. Currently on phone. Offers no complaints at this time. Plan of care ongoing.
[2023-09-05] MEDS: Nicotine Polacrilex 2 MG GUM 6 MG BUCCAL ×2 (20:07→21:58)
[2023-09-05] MEDS: Mirtazapine 15 MG TABLET 45 MG PO (21:58)
[2023-09-05] MEDS: OXcarbazepine 150 MG TABLET PO (21:58)
[2023-09-05] MEDS: QUEtiapine Fumarate 50 MG TABLET 150 MG PO (21:58)
[2023-09-05] MEDS: traZODone HCL 50 MG TABLET PO (21:58)
[2023-09-06] MEDS: Nicotine Polacrilex 2 MG GUM 6 MG BUCCAL ×3 (06:57→20:27)
[2023-09-06] MEDS: QUEtiapine Fumarate 50 MG TABLET PO ×4 (07:52→20:27)
[2023-09-06] MEDS: Venlafaxine HCl ER 150 MG CAP.ER.24H PO (07:53)
[2023-09-06] MEDS: Gabapentin 400 MG CAPSULE 1200 MG PO ×3 (07:53→22:55)
[2023-09-06] MEDS: Naltrexone HCl 50 MG TABLET PO (07:54)
[2023-09-06] MEDS: Nicotine 21 MG PATCH.TD24 TRANSDERMA (07:54)
[2023-09-06] MEDS: OXcarbazepine 150 MG TABLET PO ×2 (07:54→22:55)
[2023-09-06] MEDS: hydrOXYzine HCL 25 MG TABLET PO (08:46)
[2023-09-06 09:25] VITALS: BP 114/63; PULSE 105; RESP 18; TEMP 36.8; O2SAT 96
--- NOTE | 2023-09-06 10:55 | P.PNPSI_ITS ---
Subjective Subjective Date of Service: 09/06/23 Reason For Visit: Depression Interim History: Met with patient. Discussed with Nursing. Chart reviewed. Overall been very anxious and utilizing PRNs. Has been out of his room all day and engaging in the milieu. Overall reports feeling depressed and anxious. In the past at home when he is less stressed and environment is clearly different, utilizes Seroquel at bedtime often a much lower doses than 150 mg and also sometimes during the day depending on stressors and environment for/ events. No SI. No psychosis. We discussed increasing Seroquel scheduled 200 mg at bedtime, scheduling 100 mg in the morning and then having 50 mg as needed up to 4 times per day, at least 2 hours apart, while also increasing hydroxyzine to 50 mg as needed up to 4 times per day, at least 2 hours apart. Medication Compliance: Yes Side effects from medications: No Attending Groups: Yes Review of Systems Acute medical concerns: No Review of Systems Review of Systems Yes all other systems are reviewed and are negative Mental Status Exam Mental Status Exam Narrative: Pleasant. Engaged. Casually dressed. Organized. Very anxious. No SI. No HI. No agitation. No psychosis. Insight and judgment fair Diagnostics Vital Signs (24Hr): Vital Signs - 24 hr 09/05/23 17:25 09/06/23 09:25 Temperature 98.2 F 98.3 F Pulse Rate 117 H 105 H Respiratory Rate 16 18 Blood Pressure 148/77 H 114/63 Pulse Oximetry 98 96 Oxygen Delivery Method Room Air Room Air BMI result Body Mass Index 21.0 Labs 09/03/23 20:53 09/03/23 20:52 Labs: Laboratory Results - last 48 hr 09/05/23 08:06 Estimat Average Glucose 94 Hemoglobin A1c % 4.9 Magnesium 2.0 Iron 85 TIBC 260 % Saturation 33 Unsat Iron Binding 175 Triglycerides 129 Cholesterol 171 LDL Cholesterol, Calc 106 H HDL Cholesterol 40 L Vitamin B12 452 TSH 1.69 Free T4 0.72 Medications Medications Current Medications Acetaminophen (Acetaminophen 325 Mg Tablet) 650 mg PO Q6H PRN PRN Reason: Headache/Pain Mild Scale (1-3) Last Admin: 09/05/23 01:29 Dose: 650 mg Al Hydroxide/Mg Hydroxide (Magnesium Hydrox/Alum Hydrox 30 Ml Oral.Susp) 30 ml PO Q6H PRN PRN Reason: Heartburn/Nausea Gabapentin (Gabapentin 400 Mg Capsule) 1,200 mg PO TID [facility] Last Admin: 09/06/23 07:53 Dose: 1,200 mg Hydroxyzine HCl (Hydroxyzine Hcl 25 Mg Tablet) 25 mg PO Q6H PRN PRN Reason: Anxiety Last Admin: 09/06/23 08:46 Dose: 25 mg Magnesium Hydroxide (Milk Of Magnesia 30 Ml Oral.Susp) 30 ml PO DAILY PRN PRN Reason: Constipation Mirtazapine (Mirtazapine 15 Mg Tablet) 45 mg PO BEDTIME [facility] Last Admin: 09/05/23 21:58 Dose: 45 mg Naltrexone HCl (Naltrexone Hcl 50 Mg Tablet) 50 mg PO DAILY [facility] Last Admin: 09/06/23 07:54 Dose: 50 mg Nicotine (Nicotine 21 Mg Patch.Td24) 21 mg TRANSDERMA DAILY [facility] Last Admin: 09/06/23 07:54 Dose: 21 mg Nicotine Polacrilex (Nicotine Polacrilex 2 Mg Gum) 6 mg BUCCAL Q2H PRN PRN Reason: Nicotine Cravings Last Admin: 09/06/23 06:57 Dose: 6 mg Oxcarbazepine (Oxcarbazepine 150 Mg Tablet) 150 mg PO BID [facility] Last Admin: 09/06/23 07:54 Dose: 150 mg Quetiapine Fumarate (Quetiapine Fumarate 50 Mg Tablet) 50 mg PO TID PRN PRN Reason: anxiety Last Admin: 09/06/23 07:52 Dose: 50 mg Quetiapine Fumarate (Quetiapine Fumarate 50 Mg Tablet) 150 mg PO BEDTIME [facility] Last Admin: 09/05/23 21:58 Dose: 150 mg Trazodone HCl (Trazodone Hcl 50 Mg Tablet) 50 mg PO BEDTIME MRX1 PRN PRN Reason: Insomnia Last Admin: 09/05/23 21:58 Dose: 50 mg Venlafaxine HCl (Venlafaxine Hcl Er 150 Mg Cap.Er.24h) 150 mg PO DAILY [facility] Last Admin: 09/06/23 07:53 Dose: 150 mg Allergies Allergies Allergy/AdvReac Type Severity Reaction Status Date / Time No Known Allergies Allergy Verified 03/02/23 13:28 Assessment & Plan Assessment & Plan (1) Depression: Status: Acute Code(s): F32.A - Depression, unspecified (2) Opiate use: Status: Acute Code(s): F11.90 - Opioid use, unspecified, uncomplicated (3) Alcohol use disorder: Status: Acute Code(s): F10.90 - Alcohol use, unspecified, uncomplicated Plan 38 yo male, history of major depression, alcohol and opiate use disorder, sober from both. Pt to ER from [facility] respite with SI/agitation in the context of medication changes and poor coverage in respite. As a result he became anxious and suicidal. Regime re-established and discussion of options. Plan: Collateral contact Trileptal 150 mg bid 09/06: increasing Seroquel scheduled 200 mg at bedtime, scheduling 100 mg in the morning and then having 50 mg as needed up to 4 times per day, at least 2 hours apart, while also increasing hydroxyzine to 50 mg as needed up to 4 times per day, at least 2 hours apart. Reason for continued inpatient stay Substantial Risk for: inability to function Time Spent With Patient Time: Total time managing care of this patient today ____ minutes.
[2023-09-06] MEDS: QUEtiapine Fumarate 100 MG TABLET PO (12:08)
--- NOTE | 2023-09-06 16:34 | PC.RT ---
RT to absentee-[place] pt concerning smoking cessation. WOOD ENGRAVER informs RT pt is unavailiable, in with a visitor at this time.
[2023-09-06 19:00] VITALS: BP 130/71; PULSE 94; RESP 18; TEMP 36.3; O2SAT 98
[2023-09-06] MEDS: Acetaminophen 325 MG TABLET 650 MG PO (21:13)
[2023-09-06] MEDS: Mirtazapine 15 MG TABLET 45 MG PO (22:55)
[2023-09-06] MEDS: QUEtiapine Fumarate 200 MG TABLET PO (22:55)
[2023-09-06] MEDS: traZODone HCL 50 MG TABLET PO (22:55)
[2023-09-07] MEDS: hydrOXYzine HCL 50 MG TABLET PO ×4 (05:36→21:24)
[2023-09-07] MEDS: Nicotine Polacrilex 2 MG GUM 6 MG BUCCAL ×3 (08:58→17:15)
[2023-09-07] MEDS: Venlafaxine HCl ER 150 MG CAP.ER.24H PO (08:58)
[2023-09-07] MEDS: Nicotine 21 MG PATCH.TD24 TRANSDERMA (08:58)
[2023-09-07] MEDS: OXcarbazepine 150 MG TABLET PO ×2 (08:59→22:37)
[2023-09-07] MEDS: QUEtiapine Fumarate 100 MG TABLET PO (08:59)
[2023-09-07] MEDS: Naltrexone HCl 50 MG TABLET PO (08:59)
[2023-09-07] MEDS: Gabapentin 400 MG CAPSULE 1200 MG PO ×3 (08:59→22:36)
[2023-09-07 10:49] VITALS: BP 135/73; PULSE 93; RESP 18; TEMP 36.8; O2SAT 97
[2023-09-07] MEDS: QUEtiapine Fumarate 50 MG TABLET PO ×4 (10:50→19:35)
[2023-09-07] MEDS: Acetaminophen 325 MG TABLET 650 MG PO ×2 (11:26→20:20)
[2023-09-07] MEDS: Ibuprofen 600 MG TABLET PO ×2 (12:10→22:39)
--- NOTE | 2023-09-07 12:13 | P.PNPSI_ITS ---
Subjective Subjective Date of Service: 09/07/23 Reason For Visit: Depression Interim History: Met with patient. Discussed with Nursing. Chart reviewed. Reports changes to medications yesterday were very helpful for anxiety. Has been out of his room all day and engaging in the milieu. Overall reports feeling depressed and anxious. Still looking forward to wed (December- not October 2023) with appropriate anxiety. No SI. No psychosis. Medication Compliance: Yes Side effects from medications: No Attending Groups: Yes Review of Systems Acute medical concerns: No Review of Systems Review of Systems Yes all other systems are reviewed and are negative Mental Status Exam Mental Status Exam Narrative: Pleasant. Engaged. Casually dressed. Organized. Much calmer. Depressed. No SI. No HI. No agitation. No psychosis. Insight and judgment fair Diagnostics Vital Signs (24Hr): Vital Signs - 24 hr 09/06/23 19:00 09/07/23 10:49 Temperature 97.4 F 98.2 F Pulse Rate 94 93 Respiratory Rate 18 18 Blood Pressure 130/71 135/73 Pulse Oximetry 98 97 Oxygen Delivery Method Room Air Room Air BMI result Body Mass Index 21.0 Labs 09/03/23 20:53 09/03/23 20:52 Medications Medications Current Medications Acetaminophen (Acetaminophen 325 Mg Tablet) 650 mg PO Q6H PRN PRN Reason: Headache/Pain Mild Scale (1-3) Last Admin: 09/07/23 11:26 Dose: 650 mg Al Hydroxide/Mg Hydroxide (Magnesium Hydrox/Alum Hydrox 30 Ml Oral.Susp) 30 ml PO Q6H PRN PRN Reason: Heartburn/Nausea Gabapentin (Gabapentin 400 Mg Capsule) 1,200 mg PO TID [facility] Last Admin: 09/07/23 08:59 Dose: 1,200 mg Hydroxyzine HCl (Hydroxyzine Hcl 50 Mg Tablet) 50 mg PO QID PRN PRN Reason: Mild Anxiety Last Admin: 09/07/23 05:36 Dose: 50 mg Ibuprofen (Ibuprofen 600 Mg Tablet) 600 mg PO Q6H PRN PRN Reason: muscle pain Last Admin: 09/07/23 12:10 Dose: 600 mg Magnesium Hydroxide (Milk Of Magnesia 30 Ml Oral.Susp) 30 ml PO DAILY PRN PRN Reason: Constipation Mirtazapine (Mirtazapine 15 Mg Tablet) 45 mg PO BEDTIME [facility] Last Admin: 09/06/23 22:55 Dose: 45 mg Multi-Ingred Cream/Lotion/Oil/Oint (Mineral Oil/Petrolatum,White 106 Gm Tube) 1 appl TOPICAL BID [facility]; Protocol Naltrexone HCl (Naltrexone Hcl 50 Mg Tablet) 50 mg PO DAILY [facility] Last Admin: 09/07/23 08:59 Dose: 50 mg Nicotine (Nicotine 21 Mg Patch.Td24) 21 mg TRANSDERMA DAILY [facility] Last Admin: 09/07/23 08:58 Dose: 21 mg Nicotine Polacrilex (Nicotine Polacrilex 2 Mg Gum) 6 mg BUCCAL Q2H PRN PRN Reason: Nicotine Cravings Last Admin: 09/07/23 08:58 Dose: 6 mg Oxcarbazepine (Oxcarbazepine 150 Mg Tablet) 150 mg PO BID [facility] Last Admin: 09/07/23 08:59 Dose: 150 mg Quetiapine Fumarate (Quetiapine Fumarate 100 Mg Tablet) 100 mg PO DAILY [facility] Last Admin: 09/07/23 08:59 Dose: 100 mg Quetiapine Fumarate (Quetiapine Fumarate 200 Mg Tablet) 200 mg PO BEDTIME [facility] Last Admin: 09/06/23 22:55 Dose: 200 mg Quetiapine Fumarate (Quetiapine Fumarate 50 Mg Tablet) 50 mg PO QID PRN PRN Reason: moderate to severe anxiety Last Admin: 09/07/23 10:50 Dose: 50 mg Trazodone HCl (Trazodone Hcl 50 Mg Tablet) 50 mg PO BEDTIME MRX1 PRN PRN Reason: Insomnia Last Admin: 09/06/23 22:55 Dose: 50 mg Venlafaxine HCl (Venlafaxine Hcl Er 150 Mg Cap.Er.24h) 150 mg PO DAILY [facility] Last Admin: 09/07/23 08:58 Dose: 150 mg Allergies Allergies Allergy/AdvReac Type Severity Reaction Status Date / Time No Known Allergies Allergy Verified 03/02/23 13:28 Assessment & Plan Assessment & Plan (1) Depression: Status: Acute Code(s): F32.A - Depression, unspecified (2) Opiate use: Status: Acute Code(s): F11.90 - Opioid use, unspecified, uncomplicated (3) Alcohol use disorder: Status: Acute Code(s): F10.90 - Alcohol use, unspecified, uncomplicated Plan 38 yo male, history of major depression, alcohol and opiate use disorder, sober from both. Pt to ER from [facility] respite with SI/agitation in the context of medication changes and poor coverage in respite. As a result he became anxious and suicidal. Regime re-established and discussion of options. Plan: Collateral contact Trileptal 150 mg bid 09/06: increasing Seroquel scheduled 200 mg at bedtime, scheduling 100 mg in the morning and then having 50 mg as needed up to 4 times per day, at least 2 hours apart, while also increasing hydroxyzine to 50 mg as needed up to 4 times per day, at least 2 hours apart. 09/07: no changes Reason for continued inpatient stay Substantial Risk for: inability to function and rapid decompensation Time Spent With Patient Time: Total time managing care of this patient today ____ minutes.
[2023-09-07] MEDS: Mineral Oil/Petrolatum,White 106 GM Tube 1 APPL TOPICAL (14:15)
[2023-09-07 17:55] VITALS: BP 122/76; PULSE 85; RESP 18; TEMP 36.7; O2SAT 98
[2023-09-07] MEDS: Milk of Magnesia 30 ML ORAL.SUSP PO (18:08)
[2023-09-07] MEDS: Mirtazapine 15 MG TABLET 45 MG PO (22:36)
[2023-09-07] MEDS: QUEtiapine Fumarate 200 MG TABLET PO (22:37)
[2023-09-07] MEDS: traZODone HCL 50 MG TABLET PO (22:39)
[2023-09-08] MEDS: traZODone HCL 50 MG TABLET PO ×2 (00:52→23:58)
[2023-09-08] MEDS: Nicotine Polacrilex 2 MG GUM 6 MG BUCCAL ×3 (01:58→21:31)
[2023-09-08 07:45] VITALS: BP 138/86; PULSE 89; RESP 15; TEMP 37.3; O2SAT 99
--- NOTE | 2023-09-08 15:06 | P.PNPSI_ITS ---
Subjective Subjective Date of Service: 09/08/23 Reason For Visit: Depression Subjective Notes: Conditional Voluntary Healthcare Proxy: No Guardianship: No Medical Problems Affecting Mental Status: No Interim History: Pt seen, reviewed with team. Pt scheduled for a 930a.m. therapy appt via zoom which did not occur due to team error. This was difficult for pt to understand and he remained distraught throughout the day. Reports poor sleep as milieu has been active, triggering for him at night. He references peers and their difficulties with others, his hypervigilence, and need to make sure others are OK. Pt upset with team, spent much of the afternoon sitting in the corner of the hallway, declined to move. Met with pt later in the day, med review, Trileptal increased, encouraged to discuss his concerns with team. Reports he feels uncared for and dismissed when his needs are not heard. Todays issue with missing his therapy makes him believe we do not have his best interest in mind. He asks for a transfer to , where he had a successful admission in the past. Medication Compliance: Yes Side effects from medications: No Attending Groups: Intermittent Review of Systems Acute medical concerns: No Medical Review of Systems: unchanged Review of Systems Review of Systems Given resources for carpal tunnel specialists for consult in [facility] Yes all other systems are reviewed and are negative (denies) Mental Status Exam Mental Status Exam Patient Appearance: Appropriate Patient Orientation: Person, Place, Time and Situation Level of Consciousness: Alert Patient Behavior: Talkative, Anxious, Distractible and Good Eye Contact Mood Description: Withdrawn, Depressed, Anxious and Angry Affect Description: Flat Patient Cognition Impaired: No Ability to Follow Directions: Good Speech Pattern: Appropriate and Spontaneous Speech Memory Description: Intact Hallucinations: None Delusions: Not Present Perceptual Disturbances: Derealization Thought Process: Distracted and Rumination Thought Content: positive for [place], positive for Circumstantial and positive for Perseveration Depressive Symptoms: Increased Anxiety, Insomnia, Increased Irritability, Difficulty Sleeping and Back Pain Abnormal Motor Activity Signs and Symptoms: Agitation and Restlessness Judgement: Fair Diagnostics Vital Signs (24Hr): Vital Signs - 24 hr 09/07/23 17:55 09/08/23 07:45 Temperature 98.0 F 99.1 F Pulse Rate 85 89 Respiratory Rate 18 15 Blood Pressure 122/76 138/86 Pulse Oximetry 98 99 Oxygen Delivery Method Room Air Room Air BMI result Body Mass Index 21.0 Labs 09/03/23 20:53 09/03/23 20:52 Medications Medications Current Medications Acetaminophen (Acetaminophen 325 Mg Tablet) 650 mg PO Q6H PRN PRN Reason: Headache/Pain Mild Scale (1-3) Last Admin: 09/07/23 20:20 Dose: 650 mg Al Hydroxide/Mg Hydroxide (Magnesium Hydrox/Alum Hydrox 30 Ml Oral.Susp) 30 ml PO Q6H PRN PRN Reason: Heartburn/Nausea Gabapentin (Gabapentin 400 Mg Capsule) 1,200 mg PO TID [facility] Last Admin: 09/08/23 12:17 Dose: Not Given Hydroxyzine HCl (Hydroxyzine Hcl 50 Mg Tablet) 50 mg PO QID PRN PRN Reason: Mild Anxiety Last Admin: 09/07/23 21:24 Dose: 50 mg Ibuprofen (Ibuprofen 600 Mg Tablet) 600 mg PO Q6H PRN PRN Reason: muscle pain Last Admin: 09/07/23 22:39 Dose: 600 mg Magnesium Hydroxide (Milk Of Magnesia 30 Ml Oral.Susp) 30 ml PO DAILY PRN PRN Reason: Constipation Last Admin: 09/07/23 18:08 Dose: 30 ml Mirtazapine (Mirtazapine 15 Mg Tablet) 45 mg PO BEDTIME [facility] Last Admin: 09/07/23 22:36 Dose: 45 mg Multi-Ingred Cream/Lotion/Oil/Oint (Mineral Oil/Petrolatum,White 106 Gm Tube) 1 appl TOPICAL BID [facility]; Protocol Last Admin: 09/08/23 12:17 Dose: Not Given Naltrexone HCl (Naltrexone Hcl 50 Mg Tablet) 50 mg PO DAILY [facility] Last Admin: 09/08/23 12:18 Dose: Not Given Nicotine (Nicotine 21 Mg Patch.Td24) 21 mg TRANSDERMA DAILY [facility] Last Admin: 09/08/23 12:17 Dose: Not Given Nicotine Polacrilex (Nicotine Polacrilex 2 Mg Gum) 6 mg BUCCAL Q2H PRN PRN Reason: Nicotine Cravings Last Admin: 09/08/23 01:58 Dose: 6 mg Oxcarbazepine (Oxcarbazepine 150 Mg Tablet) 150 mg PO BID [facility] Last Admin: 09/08/23 12:18 Dose: Not Given Quetiapine Fumarate (Quetiapine Fumarate 100 Mg Tablet) 100 mg PO DAILY [facility] Last Admin: 09/08/23 12:18 Dose: Not Given Quetiapine Fumarate (Quetiapine Fumarate 200 Mg Tablet) 200 mg PO BEDTIME [facility] Last Admin: 09/07/23 22:37 Dose: 200 mg Quetiapine Fumarate (Quetiapine Fumarate 50 Mg Tablet) 50 mg PO QID PRN PRN Reason: moderate to severe anxiety Last Admin: 09/07/23 19:35 Dose: 50 mg Trazodone HCl (Trazodone Hcl 50 Mg Tablet) 50 mg PO BEDTIME MRX1 PRN PRN Reason: Insomnia Last Admin: 09/08/23 00:52 Dose: 50 mg Venlafaxine HCl (Venlafaxine Hcl Er 150 Mg Cap.Er.24h) 150 mg PO DAILY [facility] Last Admin: 09/08/23 12:18 Dose: Not Given Allergies Allergies Allergy/AdvReac Type Severity Reaction Status Date / Time No Known Allergies Allergy Verified 03/02/23 13:28 Assessment & Plan Assessment & Plan (1) Depression: Status: Acute Code(s): F32.A - Depression, unspecified (2) Opiate use: Status: Acute Code(s): F11.90 - Opioid use, unspecified, uncomplicated (3) Alcohol use disorder: Status: Acute Code(s): F10.90 - Alcohol use, unspecified, uncomplicated Plan 38 yo male, history of major depression, alcohol and opiate use disorder, sober from both. Pt to ER from [facility] respite with SI/agitation in the context of medication changes and poor coverage in respite. As a result he became anxious and suicidal. Regime re-established and discussion of options. Plan: Collateral contact Trileptal 150 mg bid 09/06: increasing Seroquel scheduled 200 mg at bedtime, scheduling 100 mg in the morning and then having 50 mg as needed up to 4 times per day, at least 2 hours apart, while also increasing hydroxyzine to 50 mg as needed up to 4 times per day, at least 2 hours apart. 09/07: no changes 09/08/22 Increase Trileptal to 300 mg bid Patient educated on: medication risk/benefits and therapeutic strategies Informed Consent: understands and further education needed Reason for continued inpatient stay Substantial Risk for: rapid decompensation Time Spent With Patient Time: Total time managing care of this patient today ____ minutes.
[2023-09-08] MEDS: Gabapentin 400 MG CAPSULE 1200 MG PO ×2 (16:00→23:58)
[2023-09-08] MEDS: QUEtiapine Fumarate 50 MG TABLET PO ×3 (16:07→21:28)
[2023-09-08 18:00] VITALS: BP 144/77; PULSE 115; RESP 16; TEMP 36.7; O2SAT 97
[2023-09-08] MEDS: hydrOXYzine HCL 50 MG TABLET PO ×2 (18:15→21:28)
[2023-09-08] MEDS: Mirtazapine 15 MG TABLET 45 MG PO (23:57)
[2023-09-08] MEDS: OXcarbazepine 300 MG TABLET PO (23:58)
[2023-09-08] MEDS: QUEtiapine Fumarate 200 MG TABLET PO (23:58)
[2023-09-09] MEDS: traZODone HCL 50 MG TABLET PO (01:45)
[2023-09-09] MEDS: QUEtiapine Fumarate 50 MG TABLET PO ×3 (04:49→17:12)
[2023-09-09] MEDS: Nicotine Polacrilex 2 MG GUM 6 MG BUCCAL ×6 (04:50→18:58)
[2023-09-09] MEDS: hydrOXYzine HCL 50 MG TABLET PO ×5 (06:48→18:58)
[2023-09-09 07:56] VITALS: BP 128/80; PULSE 86; RESP 16; TEMP 36.7; O2SAT 97
[2023-09-09] MEDS: QUEtiapine Fumarate 100 MG TABLET PO ×2 (08:10→14:11)
[2023-09-09] MEDS: Venlafaxine HCl ER 150 MG CAP.ER.24H PO (08:10)
[2023-09-09] MEDS: Nicotine 21 MG PATCH.TD24 TRANSDERMA (08:10)
[2023-09-09] MEDS: OXcarbazepine 300 MG TABLET PO ×2 (08:10→22:49)
[2023-09-09] MEDS: Naltrexone HCl 50 MG TABLET PO (08:10)
[2023-09-09] MEDS: Gabapentin 400 MG CAPSULE 1200 MG PO ×3 (08:10→22:47)
--- NOTE | 2023-09-09 14:25 | HO.PSYCHPN ---
Subjective Subjective Date of Service: 09/09/23 Reason For Visit: Depression Subjective Notes: Conditional Voluntary Healthcare Proxy: No Guardianship: No Medical Problems Affecting Mental Status: No Interim History: Pt seen, discussed in team meeting. Pt had requested a transfer to [facility] due to a conflict on 09/08 with team. Team, although with sincere efforts, was unable to complete this due to admissions, acuity and pt's ability to complete conflict resolution. This was explained to pt. Pt reports he continues with distress over missing therapy appt 09/09, but I am over it . Team/Pt reports 3 hours of sleep with lability, agitation at times. Review of meds-will increase Trazodone and both HS and daytime Seroquel doses which he is in agreement with. Dexter CARRASQUILLO met with pt and has arranged another zoom therapy session for pt TBS. Discussed other concerns pt has including chronic back pain, at times with no activity precipitant. Will search for resources for OP consultation post discharge. Team s/w ngozi who reviewed sx [employer] including sleep deprivation (hx of 7 days without rest, possibly substance induced), lability (ngozi can tell when difficult times for pt are oncoming), hx of SI. Medication Compliance: Yes Side effects from medications: No Attending Groups: Intermittent Review of Systems Acute medical concerns: No Medical Review of Systems: unchanged Review of Systems Review of Systems Asks for resources for back pain to explore upon discharge. Yes all other systems are reviewed and are negative (denies) Mental Status Exam Mental Status Exam Patient Appearance: Appropriate Patient Orientation: Person, Place, Time and Situation Level of Consciousness: Alert Patient Behavior: Talkative, Anxious, Distractible and Good Eye Contact Mood Description: Withdrawn, Depressed, Anxious and Angry Affect Description: Flat Patient Cognition Impaired: No Ability to Follow Directions: Good Speech Pattern: Appropriate and Spontaneous Speech Memory Description: Intact Hallucinations: None Delusions: Not Present Perceptual Disturbances: Derealization Thought Process: Distracted and Rumination Thought Content: positive for [place], positive for [place]um[place] and positive for [place] Depressive Symptoms: Increased Anxiety, Insomnia, Increased Irritability, Difficulty Sleeping and Back Pain Abnormal Motor Activity Signs and Symptoms: Agitation and Restlessness Judgement: Fair Diagnostics Vital Signs (24Hr): Vital Signs - 24 hr 09/08/23 18:00 09/09/23 07:56 Temperature 98.0 F 98.1 F Pulse Rate 115 H 86 Respiratory Rate 16 16 Blood Pressure 144/77 H 128/80 Pulse Oximetry 97 97 Oxygen Delivery Method Room Air Room Air BMI result Body Mass Index 21.0 Labs 09/03/23 20:53 09/03/23 20:52 Medications Medications Current Medications Acetaminophen (Acetaminophen 325 Mg Tablet) 650 mg PO Q6H PRN PRN Reason: Headache/Pain Mild Scale (1-3) Last Admin: 09/07/23 20:20 Dose: 650 mg Al Hydroxide/Mg Hydroxide (Magnesium Hydrox/Alum Hydrox 30 Ml Oral.Susp) 30 ml PO Q6H PRN PRN Reason: Heartburn/Nausea Gabapentin (Gabapentin 400 Mg Capsule) 1,200 mg PO TID [facility] Last Admin: 09/09/23 14:11 Dose: 1,200 mg Hydroxyzine HCl (Hydroxyzine Hcl 50 Mg Tablet) 50 mg PO QID PRN PRN Reason: Mild Anxiety Last Admin: 09/09/23 12:40 Dose: 50 mg Ibuprofen (Ibuprofen 600 Mg Tablet) 600 mg PO Q6H PRN PRN Reason: muscle pain Last Admin: 09/07/23 22:39 Dose: 600 mg Magnesium Hydroxide (Milk Of Magnesia 30 Ml Oral.Susp) 30 ml PO DAILY PRN PRN Reason: Constipation Last Admin: 09/07/23 18:08 Dose: 30 ml Mirtazapine (Mirtazapine 15 Mg Tablet) 45 mg PO BEDTIME [facility] Last Admin: 09/08/23 23:57 Dose: 45 mg Multi-Ingred Cream/Lotion/Oil/Oint (Mineral Oil/Petrolatum,White 106 Gm Tube) 1 appl TOPICAL BID [facility]; Protocol Last Admin: 09/09/23 10:26 Dose: Not Given Naltrexone HCl (Naltrexone Hcl 50 Mg Tablet) 50 mg PO DAILY [facility] Last Admin: 09/09/23 08:10 Dose: 50 mg Nicotine (Nicotine 21 Mg Patch.Td24) 21 mg TRANSDERMA DAILY [facility] Last Admin: 09/09/23 08:10 Dose: 21 mg Nicotine Polacrilex (Nicotine Polacrilex 2 Mg Gum) 6 mg BUCCAL Q2H PRN PRN Reason: Nicotine Cravings Last Admin: 09/09/23 12:39 Dose: 6 mg Oxcarbazepine (Oxcarbazepine 300 Mg Tablet) 300 mg PO BID [facility] Last Admin: 09/09/23 08:10 Dose: 300 mg Quetiapine Fumarate (Quetiapine Fumarate 50 Mg Tablet) 50 mg PO QID PRN PRN Reason: moderate to severe anxiety Last Admin: 09/09/23 11:35 Dose: 50 mg Quetiapine Fumarate (Quetiapine Fumarate 300 Mg Tablet) 300 mg PO BEDTIME TIM Quetiapine Fumarate (Quetiapine Fumarate 100 Mg Tablet) 100 mg PO 0900,1500 TIM Last Admin: 09/09/23 14:11 Dose: 100 mg Trazodone HCl (Trazodone Hcl 100 Mg Tablet) 100 mg PO BEDTIME MRX1 PRN PRN Reason: Insomnia Venlafaxine HCl (Venlafaxine Hcl Er 150 Mg Cap.Er.24h) 150 mg PO DAILY TIM Last Admin: 09/09/23 08:10 Dose: 150 mg Allergies Allergies Allergy/AdvReac Type Severity Reaction Status Date / Time No Known Allergies Allergy Verified 03/02/23 13:28 Assessment & Plan Assessment & Plan (1) Depression: Status: Acute Code(s): F32.A - Depression, unspecified (2) Opiate use: Status: Acute Code(s): F11.90 - Opioid use, unspecified, uncomplicated (3) Alcohol use disorder: Status: Acute Code(s): F10.90 - Alcohol use, unspecified, uncomplicated Plan 38 yo male, history of major depression, alcohol and opiate use disorder, sober from both. Pt to ER from [facility] respite with SI/agitation in the context of medication changes and poor coverage in respite. As a result he became anxious and suicidal. Regime re-established and discussion of options. Plan: Collateral contact Trileptal 150 mg bid 09/06: increasing Seroquel scheduled 200 mg at bedtime, scheduling 100 mg in the morning and then having 50 mg as needed up to 4 times per day, at least 2 hours apart, while also increasing hydroxyzine to 50 mg as needed up to 4 times per day, at least 2 hours apart. 09/07: no changes 09/09/23: Increase HS Seroquel to 300 mg Increase daytime Seroquel to 100 mg bid Increase Trazodone to 100 mg Patient educated on: medication risk/benefits and therapeutic strategies Informed Consent: understands and further education needed Reason for continued inpatient stay Substantial Risk for: rapid decompensation Time Spent With Patient Time: Total time managing care of this patient today ____ minutes.
[2023-09-09] MEDS: Acetaminophen 325 MG TABLET 650 MG PO (17:10)
[2023-09-09] MEDS: Ibuprofen 600 MG TABLET PO (17:12)
[2023-09-09 18:00] VITALS: BP 135/72; PULSE 99; RESP 18; TEMP 36.8; O2SAT 98
[2023-09-09] MEDS: Milk of Magnesia 30 ML ORAL.SUSP PO (18:58)
[2023-09-09] MEDS: QUEtiapine Fumarate 300 MG TABLET PO (22:48)
[2023-09-09] MEDS: Mirtazapine 15 MG TABLET 45 MG PO (22:48)
[2023-09-10 07:40] VITALS: BP 138/101; PULSE 82; RESP 18; TEMP 36.3; O2SAT 98
[2023-09-10] MEDS: Nicotine 21 MG PATCH.TD24 TRANSDERMA (08:17)
[2023-09-10] MEDS: Venlafaxine HCl ER 150 MG CAP.ER.24H PO (08:18)
[2023-09-10] MEDS: Nicotine Polacrilex 2 MG GUM 6 MG BUCCAL ×5 (08:18→23:47)
[2023-09-10] MEDS: OXcarbazepine 300 MG TABLET PO ×2 (08:18→23:13)
[2023-09-10] MEDS: Naltrexone HCl 50 MG TABLET PO (08:18)
[2023-09-10] MEDS: Gabapentin 400 MG CAPSULE 1200 MG PO ×3 (08:18→23:13)
[2023-09-10] MEDS: QUEtiapine Fumarate 100 MG TABLET PO ×2 (08:18→14:13)
--- NOTE | 2023-09-10 08:38 | HO.PSYCHPN ---
Subjective Subjective Date of Service: 09/10/23 Reason For Visit: Depression Subjective Notes: Conditional Voluntary Healthcare Proxy: No Guardianship: No Medical Problems Affecting Mental Status: No Interim History: Pt seen, discussed in team meeting. Team reports 2/6 pt irritable, threatening to staff. Pt reports improved sleep with med increases yesterday and feeling some improvement today. Discussed discharge planning, he has some interest in [facility]. Also has interest in scheduling a consult for hand surgery Spoke with therapist natasha a.m. Pleased with this interaction. Medication Compliance: Yes Side effects from medications: No Attending Groups: Intermittent Review of Systems Acute medical concerns: No Medical Review of Systems: unchanged Review of Systems Review of Systems Yes all other systems are reviewed and are negative Mental Status Exam Mental Status Exam Patient Appearance: Appropriate Patient Orientation: Person, Place, Time and Situation Level of Consciousness: Alert Patient Behavior: Talkative and Good Eye Contact Mood Description: Constricted Affect Description: Constricted Patient Cognition Impaired: No Ability to Follow Directions: Good Speech Pattern: Appropriate and Spontaneous Speech Memory Description: Intact Hallucinations: None Delusions: Not Present Perceptual Disturbances: Depersonalization and Derealization Thought Process: Intact, Distracted and Goal Oriented Thought Content: positive for [place] and positive for [place]um[place] Depressive Symptoms: Back Pain Judgement: Good Diagnostics Vital Signs (24Hr): Vital Signs - 24 hr 09/09/23 18:00 Temperature 98.2 F Pulse Rate 99 Respiratory Rate 18 Blood Pressure 135/72 Pulse Oximetry 98 Oxygen Delivery Method Room Air BMI result Body Mass Index 21.0 Labs 09/03/23 20:53 09/03/23 20:52 Medications Medications Current Medications Acetaminophen (Acetaminophen 325 Mg Tablet) 650 mg PO Q6H PRN PRN Reason: Headache/Pain Mild Scale (1-3) Last Admin: 09/09/23 17:10 Dose: 650 mg Al Hydroxide/Mg Hydroxide (Magnesium Hydrox/Alum Hydrox 30 Ml Oral.Susp) 30 ml PO Q6H PRN PRN Reason: Heartburn/Nausea Gabapentin (Gabapentin 400 Mg Capsule) 1,200 mg PO TID TIM Last Admin: 09/10/23 08:18 Dose: 1,200 mg Hydroxyzine HCl (Hydroxyzine Hcl 50 Mg Tablet) 50 mg PO QID PRN PRN Reason: Mild Anxiety Last Admin: 09/09/23 18:58 Dose: 50 mg Ibuprofen (Ibuprofen 600 Mg Tablet) 600 mg PO Q6H PRN PRN Reason: muscle pain Last Admin: 09/09/23 17:12 Dose: 600 mg Magnesium Hydroxide (Milk Of Magnesia 30 Ml Oral.Susp) 30 ml PO DAILY PRN PRN Reason: Constipation Last Admin: 09/09/23 18:58 Dose: 30 ml Mirtazapine (Mirtazapine 15 Mg Tablet) 45 mg PO BEDTIME [facility] Last Admin: 09/09/23 22:48 Dose: 45 mg Multi-Ingred Cream/Lotion/Oil/Oint (Mineral Oil/Petrolatum,White 106 Gm Tube) 1 appl TOPICAL BID [facility]; Protocol Last Admin: 09/10/23 08:22 Dose: Not Given Naltrexone HCl (Naltrexone Hcl 50 Mg Tablet) 50 mg PO DAILY [facility] Last Admin: 09/10/23 08:18 Dose: 50 mg Nicotine (Nicotine 21 Mg Patch.Td24) 21 mg TRANSDERMA DAILY [facility] Last Admin: 09/10/23 08:17 Dose: 21 mg Nicotine Polacrilex (Nicotine Polacrilex 2 Mg Gum) 6 mg BUCCAL Q2H PRN PRN Reason: Nicotine Cravings Last Admin: 09/10/23 08:18 Dose: 6 mg Oxcarbazepine (Oxcarbazepine 300 Mg Tablet) 300 mg PO BID [facility] Last Admin: 09/10/23 08:18 Dose: 300 mg Quetiapine Fumarate (Quetiapine Fumarate 50 Mg Tablet) 50 mg PO QID PRN PRN Reason: moderate to severe anxiety Last Admin: 09/09/23 17:12 Dose: 50 mg Quetiapine Fumarate (Quetiapine Fumarate 300 Mg Tablet) 300 mg PO BEDTIME [facility] Last Admin: 09/09/23 22:48 Dose: 300 mg Quetiapine Fumarate (Quetiapine Fumarate 100 Mg Tablet) 100 mg PO 0900,1500 [facility] Last Admin: 09/10/23 08:18 Dose: 100 mg Trazodone HCl (Trazodone Hcl 100 Mg Tablet) 100 mg PO BEDTIME MRX1 PRN PRN Reason: Insomnia Venlafaxine HCl (Venlafaxine Hcl Er 150 Mg Cap.Er.24h) 150 mg PO DAILY [facility] Last Admin: 09/10/23 08:18 Dose: 150 mg Allergies Allergies Allergy/AdvReac Type Severity Reaction Status Date / Time No Known Allergies Allergy Verified 03/02/23 13:28 Assessment & Plan Assessment & Plan (1) Depression: Status: Acute Code(s): F32.A - Depression, unspecified (2) Opiate use: Status: Acute Code(s): F11.90 - Opioid use, unspecified, uncomplicated (3) Alcohol use disorder: Status: Acute Code(s): F10.90 - Alcohol use, unspecified, uncomplicated Plan 38 yo male, history of major depression, alcohol and opiate use disorder, sober from both. [facility] in the context of medication changes and poor coverage in respite. As a result he became anxious and suicidal. Regime re-established and discussion of options. Plan: Collateral contact Trileptal 150 mg bid 09/06: increasing Seroquel scheduled 200 mg at bedtime, scheduling 100 mg in the morning and then having 50 mg as needed up to 4 times per day, at least 2 hours apart, while also increasing hydroxyzine to 50 mg as needed up to 4 times per day, at least 2 hours apart. 09/07: no changes 09/09/23: Increase HS Seroquel to 300 mg Increase daytime Seroquel to 100 mg bid Increase Trazodone to 100 mg 09/10/23 Continue current regime Patient educated on: medication risk/benefits and therapeutic strategies Informed Consent: understands Reason for continued inpatient stay Substantial Risk for: rapid decompensation Time Spent With Patient Time: Total time managing care of this patient today ____ minutes.
[2023-09-10] MEDS: hydrOXYzine HCL 50 MG TABLET PO ×5 (09:39→22:17)
[2023-09-10] MEDS: QUEtiapine Fumarate 50 MG TABLET PO ×3 (10:52→21:19)
[2023-09-10] MEDS: Ibuprofen 600 MG TABLET PO (13:28)
[2023-09-10 18:00] VITALS: BP 134/63; PULSE 88; RESP 16; TEMP 36.7; O2SAT 99
--- NOTE | 2023-09-10 20:16 | PC.NURSE ---
Assumed care of pt at 19:30, pacing halls and interacting with peers. Offers no complaints at this time.
[2023-09-10] MEDS: QUEtiapine Fumarate 300 MG TABLET PO (23:13)
[2023-09-10] MEDS: Mirtazapine 15 MG TABLET 45 MG PO (23:13)
[2023-09-10] MEDS: Mineral Oil/Petrolatum,White 106 GM Tube 1 APPL TOPICAL (23:45)
[2023-09-11] MEDS: Nicotine Polacrilex 2 MG GUM 6 MG BUCCAL ×5 (05:41→16:56)
[2023-09-11 07:00] VITALS: BMI 25.9
[2023-09-11 07:55] VITALS: BP 140/67; PULSE 86; RESP 18; TEMP 36.8; O2SAT 98
[2023-09-11] MEDS: Nicotine 21 MG PATCH.TD24 TRANSDERMA (08:00)
[2023-09-11] MEDS: Venlafaxine HCl ER 150 MG CAP.ER.24H PO (08:01)
[2023-09-11] MEDS: Gabapentin 400 MG CAPSULE 1200 MG PO ×3 (08:01→21:28)
[2023-09-11] MEDS: QUEtiapine Fumarate 100 MG TABLET PO ×2 (08:01→14:26)
[2023-09-11] MEDS: OXcarbazepine 300 MG TABLET PO ×2 (08:02→21:29)
[2023-09-11] MEDS: Naltrexone HCl 50 MG TABLET PO (08:02)
[2023-09-11] MEDS: Ibuprofen 600 MG TABLET PO ×2 (08:02→14:26)
[2023-09-11] MEDS: hydrOXYzine HCL 50 MG TABLET PO ×4 (09:34→18:07)
[2023-09-11] MEDS: QUEtiapine Fumarate 50 MG TABLET PO ×4 (10:43→19:55)
[2023-09-11] MEDS: Acetaminophen 325 MG TABLET 650 MG PO (13:06)
--- NOTE | 2023-09-11 16:33 | HO.PSYCHPN ---
Subjective Subjective Date of Service: 09/11/23 Reason For Visit: Depression Subjective Notes: Conditional Voluntary Healthcare Proxy: No Guardianship: No Medical Problems Affecting Mental Status: No Interim History: Reports 4 hours of sleep last night. Discussed adding a mood stabilizer to assist with sx. Depakote ER 500 HS added Appt for carpal tunnel consult 09/18. Pt is pleased with this. PHP referral started. Medication Compliance: Yes Side effects from medications: No Attending Groups: Yes Review of Systems Acute medical concerns: No Medical Review of Systems: unchanged Review of Systems Review of Systems Yes all other systems are reviewed and are negative Mental Status Exam Mental Status Exam Patient Appearance: Appropriate Patient Orientation: Person, Place, Time and Situation Level of Consciousness: Alert Patient Behavior: Talkative and Good Eye Contact Mood Description: Constricted Affect Description: Constricted Patient Cognition Impaired: No Ability to Follow Directions: Good Speech Pattern: Appropriate and Spontaneous Speech Memory Description: Intact Hallucinations: None Delusions: Not Present Perceptual Disturbances: Depersonalization and Derealization Thought Process: Intact, Distracted and Goal Oriented Thought Content: positive for [place] and positive for Circumstantial Depressive Symptoms: Back Pain Judgement: Good Diagnostics Vital Signs (24Hr): Vital Signs - 24 hr 09/10/23 18:00 09/11/23 07:55 Temperature 98.1 F 98.2 F Pulse Rate 88 86 Respiratory Rate 16 18 Blood Pressure 134/63 140/67 H Pulse Oximetry 99 98 Oxygen Delivery Method Room Air Room Air BMI result Body Mass Index 25.9 Labs 09/03/23 20:53 09/03/23 20:52 Medications Medications Current Medications Acetaminophen (Acetaminophen 325 Mg Tablet) 650 mg PO Q6H PRN PRN Reason: Headache/Pain Mild Scale (1-3) Last Admin: 09/11/23 13:06 Dose: 650 mg Al Hydroxide/Mg Hydroxide (Magnesium Hydrox/Alum Hydrox 30 Ml Oral.Susp) 30 ml PO Q6H PRN PRN Reason: Heartburn/Nausea Divalproex Sodium (Divalproex Sodium Er 500 Mg Tab.Er.24h) 500 mg PO BEDTIME TIM Gabapentin (Gabapentin 400 Mg Capsule) 1,200 mg PO TID TIM Last Admin: 09/11/23 14:26 Dose: 1,200 mg Hydroxyzine HCl (Hydroxyzine Hcl 50 Mg Tablet) 50 mg PO QID PRN PRN Reason: Mild Anxiety Last Admin: 09/11/23 15:56 Dose: 50 mg Ibuprofen (Ibuprofen 600 Mg Tablet) 600 mg PO Q6H PRN PRN Reason: muscle pain Last Admin: 09/11/23 14:26 Dose: 600 mg Magnesium Hydroxide (Milk Of Magnesia 30 Ml Oral.Susp) 30 ml PO DAILY PRN PRN Reason: Constipation Last Admin: 09/09/23 18:58 Dose: 30 ml Mirtazapine (Mirtazapine 15 Mg Tablet) [address] [facility] Last Admin: 09/10/23 23:13 Dose: 45 mg Multi-Ingred Cream/Lotion/Oil/Oint (Mineral Oil/Petrolatum,White 106 Gm Tube) [address] [facility]; Protocol Last Admin: 09/11/23 08:33 Dose: Not Given Naltrexone HCl (Naltrexone Hcl 50 Mg Tablet) [address] [facility] Last Admin: 09/11/23 08:02 Dose: 50 mg Nicotine (Nicotine 21 Mg Patch.Td24) [address] [facility] Last Admin: 09/11/23 08:00 Dose: 21 mg Nicotine Polacrilex (Nicotine Polacrilex 2 Mg Gum) 6 mg BUCCAL Q2H PRN PRN Reason: Nicotine Cravings Last Admin: 09/11/23 14:26 Dose: 6 mg Oxcarbazepine (Oxcarbazepine 300 Mg Tablet) [address] [facility] Last Admin: 09/11/23 08:02 Dose: 300 mg Quetiapine Fumarate (Quetiapine Fumarate 50 Mg Tablet) 50 mg PO QID PRN PRN Reason: moderate to severe anxiety Last Admin: 09/11/23 13:06 Dose: 50 mg Quetiapine Fumarate (Quetiapine Fumarate 300 Mg Tablet) [address] [facility] Last Admin: 09/10/23 23:13 Dose: 300 mg Quetiapine Fumarate (Quetiapine Fumarate 100 Mg Tablet) 100 mg PO 0900,1500 [facility] Last Admin: 09/11/23 14:26 Dose: 100 mg Trazodone HCl (Trazodone Hcl 100 Mg Tablet) 100 mg PO BEDTIME MRX1 PRN PRN Reason: Insomnia Venlafaxine HCl (Venlafaxine Hcl Er 150 Mg Cap.Er.24h) [address] [facility] Last Admin: 09/11/23 08:01 Dose: 150 mg Allergies Allergies Allergy/AdvReac Type Severity Reaction Status Date / Time No Known Allergies Allergy Verified 03/02/23 13:28 Assessment & Plan Assessment & Plan (1) Depression: Status: Acute Code(s): F32.A - Depression, unspecified (2) Opiate use: Status: Acute Code(s): F11.90 - Opioid use, unspecified, uncomplicated (3) Alcohol use disorder: Status: Acute Code(s): F10.90 - Alcohol use, unspecified, uncomplicated Plan 38 yo male, history of major depression, alcohol and opiate use disorder, sober from both. [facility] in the context of medication changes and poor coverage in respite. As a result he became anxious and suicidal. Regime re-established and discussion of options. Plan: Collateral contact Trileptal 150 mg bid 09/06: increasing Seroquel scheduled 200 mg at bedtime, scheduling 100 mg in the morning and then having 50 mg as needed up to 4 times per day, at least 2 hours apart, while also increasing hydroxyzine to 50 mg as needed up to 4 times per day, at least 2 hours apart. 09/07: no changes 09/09/23: Increase HS Seroquel to 300 mg Increase daytime Seroquel to 100 mg bid Increase Trazodone to 100 mg 09/10/23 Continue current regime 09/11/23 Depakote ER 500 mg hs Patient educated on: medication risk/benefits and therapeutic strategies Informed Consent: understands Reason for continued inpatient stay Substantial Risk for: rapid decompensation Time Spent With Patient Time: Total time managing care of this patient today ____ minutes.
[2023-09-11 17:19] VITALS: BP 138/60; PULSE 82; RESP 18; TEMP 36.8; O2SAT 98
[2023-09-11] MEDS: Mirtazapine 15 MG TABLET 45 MG PO (21:28)
[2023-09-11] MEDS: QUEtiapine Fumarate 300 MG TABLET PO (21:29)
[2023-09-11] MEDS: Divalproex Sodium ER 500 MG TAB.ER.24H PO (21:29)
[2023-09-11] MEDS: traZODone HCL 100 MG TABLET PO (21:29)
[2023-09-12] MEDS: Mineral Oil/Petrolatum,White 106 GM Tube 1 APPL TOPICAL ×3 (06:15→22:14)
[2023-09-12] MEDS: Nicotine Polacrilex 2 MG GUM 6 MG BUCCAL ×6 (06:16→19:49)
[2023-09-12] MEDS: Magnesium Hydrox/Alum Hydrox 30 ML ORAL.SUSP PO (06:16)
[2023-09-12 08:06] VITALS: BP 142/71; PULSE 84; RESP 16; TEMP 36.3; O2SAT 99
[2023-09-12] MEDS: QUEtiapine Fumarate 100 MG TABLET PO (08:23)
[2023-09-12] MEDS: OXcarbazepine 300 MG TABLET PO (08:23)
[2023-09-12] MEDS: Gabapentin 400 MG CAPSULE 1200 MG PO ×3 (08:23→22:12)
[2023-09-12] MEDS: Naltrexone HCl 50 MG TABLET PO (08:23)
[2023-09-12] MEDS: Venlafaxine HCl ER 150 MG CAP.ER.24H PO (08:23)
[2023-09-12] MEDS: Nicotine 21 MG PATCH.TD24 TRANSDERMA (08:24)
[2023-09-12] MEDS: hydrOXYzine HCL 50 MG TABLET PO ×5 (09:19→21:14)
--- NOTE | 2023-09-12 09:59 | HO.PSYCHPN ---
Subjective Subjective Date of Service: 09/12/23 Reason For Visit: Depression Subjective Notes: Conditional Voluntary Healthcare Proxy: No Guardianship: No Medical Problems Affecting Mental Status: No Interim History: Hieu reports sleeping for ~4 hours last night. Reports anxiety is still an issue-Seroquel helpful, yet needing hydroxyzine in between. Discussed increasing Depakote and Seroquel to decrease prn need which he agrees. Overall, states he is improving. Call to PCP, Dr. Pillai [phone]. Pt has his first appt December. He does not need a referral to attend [facility] appt on 09/18/23 to begin carpal tunnel consultation. Team working on PHP referral. Tentative discharge 09/16/23. We will continue to work on sx of sleep and anxiety. Medication Compliance: Yes Side effects from medications: No Attending Groups: Yes Review of Systems Acute medical concerns: No Medical Review of Systems: unchanged Review of Systems Review of Systems Yes all other systems are reviewed and are negative Mental Status Exam Mental Status Exam Patient Appearance: Appropriate Patient Orientation: Person, Place, Time and Situation Level of Consciousness: Alert Patient Behavior: Talkative and Good Eye Contact Mood Description: Constricted Affect Description: Constricted Patient Cognition Impaired: No Ability to Follow Directions: Good Speech Pattern: Appropriate and Spontaneous Speech Memory Description: Intact Hallucinations: None Delusions: Not Present Perceptual Disturbances: Depersonalization and Derealization Thought Process: Intact, Distracted and Goal Oriented Thought Content: positive for [place] and positive for Circumstantial Depressive Symptoms: Back Pain Judgement: Good Diagnostics Vital Signs (24Hr): Vital Signs - 24 hr 09/11/23 17:19 09/12/23 08:06 Temperature 98.2 F 97.4 F Pulse Rate 82 84 Respiratory Rate 18 16 Blood Pressure 138/60 142/71 H Pulse Oximetry 98 99 Oxygen Delivery Method Room Air Room Air BMI result Body Mass Index 25.9 Labs 09/03/23 20:53 09/03/23 20:52 Medications Medications Current Medications Acetaminophen (Acetaminophen 325 Mg Tablet) 650 mg PO Q6H PRN PRN Reason: Headache/Pain Mild Scale (1-3) Last Admin: 09/11/23 13:06 Dose: 650 mg Al Hydroxide/Mg Hydroxide (Magnesium Hydrox/Alum Hydrox 30 Ml Oral.Susp) 30 ml PO Q6H PRN PRN Reason: Heartburn/Nausea Last Admin: 09/12/23 06:16 Dose: 30 ml Divalproex Sodium (Divalproex Sodium Er 500 Mg Tab.Er.24h) 500 mg PO BEDTIME [facility] Last Admin: 09/11/23 21:29 Dose: 500 mg Gabapentin (Gabapentin 400 Mg Capsule) 1,200 mg PO TID [facility] Last Admin: 09/12/23 08:23 Dose: 1,200 mg Hydroxyzine HCl (Hydroxyzine Hcl 50 Mg Tablet) 50 mg PO QID PRN PRN Reason: Mild Anxiety Last Admin: 09/12/23 09:19 Dose: 50 mg Ibuprofen (Ibuprofen 600 Mg Tablet) 600 mg PO Q6H PRN PRN Reason: muscle pain Last Admin: 09/11/23 14:26 Dose: 600 mg Magnesium Hydroxide (Milk Of Magnesia 30 Ml Oral.Susp) 30 ml PO DAILY PRN PRN Reason: Constipation Last Admin: 09/09/23 18:58 Dose: 30 ml Mirtazapine (Mirtazapine 15 Mg Tablet) 45 mg PO BEDTIME [facility] Last Admin: 09/11/23 21:28 Dose: 45 mg Multi-Ingred Cream/Lotion/Oil/Oint (Mineral Oil/Petrolatum,White 106 Gm Tube) 1 appl TOPICAL BID [facility]; Protocol Last Admin: 09/12/23 06:15 Dose: 1 appl Naltrexone HCl (Naltrexone Hcl 50 Mg Tablet) 50 mg PO DAILY [facility] Last Admin: 09/12/23 08:23 Dose: 50 mg Nicotine (Nicotine 21 Mg Patch.Td24) 21 mg TRANSDERMA DAILY [facility] Last Admin: 09/12/23 08:24 Dose: 21 mg Nicotine Polacrilex (Nicotine Polacrilex 2 Mg Gum) 6 mg BUCCAL Q2H PRN PRN Reason: Nicotine Cravings Last Admin: 09/12/23 08:23 Dose: 6 mg Oxcarbazepine (Oxcarbazepine 300 Mg Tablet) 300 mg PO BID [facility] Last Admin: 09/12/23 08:23 Dose: 300 mg Quetiapine Fumarate (Quetiapine Fumarate 50 Mg Tablet) 50 mg PO QID PRN PRN Reason: moderate to severe anxiety Last Admin: 09/11/23 19:55 Dose: 50 mg Quetiapine Fumarate (Quetiapine Fumarate 300 Mg Tablet) 300 mg PO BEDTIME [facility] Last Admin: 09/11/23 21:29 Dose: 300 mg Quetiapine Fumarate (Quetiapine Fumarate 100 Mg Tablet) 100 mg PO 0900,1500 [facility] Last Admin: 09/12/23 08:23 Dose: 100 mg Trazodone HCl (Trazodone Hcl 100 Mg Tablet) 100 mg PO BEDTIME MRX1 PRN PRN Reason: Insomnia Last Admin: 09/11/23 21:29 Dose: 100 mg Venlafaxine HCl (Venlafaxine Hcl Er 150 Mg Cap.Er.24h) 150 mg PO DAILY [facility] Last Admin: 09/12/23 08:23 Dose: 150 mg Allergies Allergies Allergy/AdvReac Type Severity Reaction Status Date / Time No Known Allergies Allergy Verified 03/02/23 13:28 Assessment & Plan Assessment & Plan (1) Depression: Status: Acute Code(s): F32.A - Depression, unspecified (2) Opiate use: Status: Acute Code(s): F11.90 - Opioid use, unspecified, uncomplicated (3) Alcohol use disorder: Status: Acute Code(s): F10.90 - Alcohol use, unspecified, uncomplicated Plan 38 yo male, history of major depression, alcohol and opiate use disorder, sober from both. Pt to ER from [facility] respite with SI/agitation in the context of medication changes and poor coverage in respite. As a result he became anxious and suicidal. Regime re-established and discussion of options. Plan: Collateral contact Trileptal 150 mg bid 09/06: increasing Seroquel scheduled 200 mg at bedtime, scheduling 100 mg in the morning and then having 50 mg as needed up to 4 times per day, at least 2 hours apart, while also increasing hydroxyzine to 50 mg as needed up to 4 times per day, at least 2 hours apart. 09/07: no changes 09/09/23: Increase HS Seroquel to 300 mg Increase daytime Seroquel to 100 mg bid Increase Trazodone to 100 mg 09/10/23 Continue current regime 09/11/23 Depakote ER 500 mg hs 09/12/23 Increase Depakote ER to 1000 mg HS Increase daytime Seroquel to 150 mg bid DC Trileptal Trileptal 300 mg daily (tapering). Patient educated on: medication risk/benefits Informed Consent: understands Reason for continued inpatient stay Substantial Risk for: rapid decompensation Time Spent With Patient Time: Total time managing care of this patient today ____ minutes.
[2023-09-12] MEDS: QUEtiapine Fumarate 50 MG TABLET PO ×4 (10:51→19:49)
[2023-09-12] MEDS: Milk of Magnesia 30 ML ORAL.SUSP PO (12:32)
[2023-09-12] MEDS: QUEtiapine Fumarate 50 MG TABLET 150 MG PO (14:26)
[2023-09-12 18:00] VITALS: BP 116/56; PULSE 96; RESP 18; TEMP 36.4; O2SAT 97
[2023-09-12] MEDS: Divalproex Sodium ER 500 MG TAB.ER.24H 1000 MG PO (22:11)
[2023-09-12] MEDS: QUEtiapine Fumarate 300 MG TABLET PO (22:11)
[2023-09-12] MEDS: Mirtazapine 15 MG TABLET 45 MG PO (22:12)
[2023-09-12] MEDS: traZODone HCL 100 MG TABLET PO (22:12)
[2023-09-13] MEDS: OXcarbazepine 300 MG TABLET PO (08:05)
[2023-09-13] MEDS: Naltrexone HCl 50 MG TABLET PO (08:05)
[2023-09-13] MEDS: QUEtiapine Fumarate 50 MG TABLET 150 MG PO ×2 (08:05→14:54)
[2023-09-13] MEDS: Gabapentin 400 MG CAPSULE 1200 MG PO ×3 (08:05→22:17)
[2023-09-13] MEDS: Venlafaxine HCl ER 150 MG CAP.ER.24H PO (08:05)
[2023-09-13] MEDS: Nicotine 21 MG PATCH.TD24 TRANSDERMA (08:07)
[2023-09-13] MEDS: Nicotine Polacrilex 2 MG GUM 6 MG BUCCAL ×2 (08:19→10:30)
[2023-09-13 08:35] VITALS: BP 138/64; PULSE 95; RESP 18; TEMP 36.8; O2SAT 97
[2023-09-13] MEDS: polyethylene glycoL 3350 17 GM POWD.PACK PO (08:53)
[2023-09-13] MEDS: hydrOXYzine HCL 50 MG TABLET PO ×5 (10:04→21:16)
--- NOTE | 2023-09-13 10:31 | HO.PSYCHPN ---
Subjective Subjective Date of Service: 09/13/23 Reason For Visit: Depression Subjective Notes: Conditional Voluntary Healthcare Proxy: No Guardianship: No Medical Problems Affecting Mental Status: No Interim History: Visable in milieu and with peers. Team reports sleep is improving Continues with anxiety, irritability Pt states no immediate concerns today Will continue current regime. Medication Compliance: Yes Side effects from medications: No Attending Groups: Yes Review of Systems Acute medical concerns: No Medical Review of Systems: unchanged Review of Systems Review of Systems Yes all other systems are reviewed and are negative Mental Status Exam Mental Status Exam Patient Appearance: Appropriate Patient Orientation: Person, Place, Time and Situation Level of Consciousness: Alert Patient Behavior: Talkative and Good Eye Contact Mood Description: Constricted Affect Description: Constricted Patient Cognition Impaired: No Ability to Follow Directions: Good Speech Pattern: Appropriate and Spontaneous Speech Memory Description: Intact Hallucinations: None Delusions: Not Present Perceptual Disturbances: Depersonalization and Derealization Thought Process: Intact, Distracted and Goal Oriented Thought Content: positive for [place] and positive for Circumstantial Depressive Symptoms: Back Pain Judgement: Good Diagnostics Vital Signs (24Hr): Vital Signs - 24 hr 09/12/23 18:00 Temperature 97.5 F Pulse Rate 96 Respiratory Rate 18 Blood Pressure 116/56 L Pulse Oximetry 97 Oxygen Delivery Method Room Air BMI result Body Mass Index 25.9 Labs 09/03/23 20:53 09/03/23 20:52 Medications Medications Current Medications Acetaminophen (Acetaminophen 325 Mg Tablet) 650 mg PO Q6H PRN PRN Reason: Headache/Pain Mild Scale (1-3) Last Admin: 09/11/23 13:06 Dose: 650 mg Al Hydroxide/Mg Hydroxide (Magnesium Hydrox/Alum Hydrox 30 Ml Oral.Susp) 30 ml PO Q6H PRN PRN Reason: Heartburn/Nausea Last Admin: 09/12/23 06:16 Dose: 30 ml Divalproex Sodium (Divalproex Sodium Er 500 Mg Tab.Er.24h) 1,000 mg PO BEDTIME [facility] Last Admin: 09/12/23 22:11 Dose: 1,000 mg Gabapentin (Gabapentin 400 Mg Capsule) 1,200 mg PO TID TIM Last Admin: 09/13/23 08:05 Dose: 1,200 mg Hydroxyzine HCl (Hydroxyzine Hcl 50 Mg Tablet) 50 mg PO QID PRN PRN Reason: Mild Anxiety Last Admin: 09/13/23 10:04 Dose: 50 mg Ibuprofen (Ibuprofen 600 Mg Tablet) 600 mg PO Q6H PRN PRN Reason: muscle pain Last Admin: 09/11/23 14:26 Dose: 600 mg Magnesium Hydroxide (Milk Of Magnesia 30 Ml Oral.Susp) 30 ml PO DAILY PRN PRN Reason: Constipation Last Admin: 09/12/23 12:32 Dose: 30 ml Mirtazapine (Mirtazapine 15 Mg Tablet) 45 mg PO BEDTIME TIM Last Admin: 09/12/23 22:12 Dose: 45 mg Multi-Ingred Cream/Lotion/Oil/Oint (Mineral Oil/Petrolatum,White 106 Gm Tube) 1 appl TOPICAL BID TIM; Protocol Last Admin: 09/12/23 22:14 Dose: 1 appl Naltrexone HCl (Naltrexone Hcl 50 Mg Tablet) 50 mg PO DAILY [facility] Last Admin: 09/13/23 08:05 Dose: 50 mg Nicotine (Nicotine 21 Mg Patch.Td24) 21 mg TRANSDERMA DAILY [facility] Last Admin: 09/13/23 08:07 Dose: 21 mg Nicotine Polacrilex (Nicotine Polacrilex 2 Mg Gum) 6 mg BUCCAL Q2H PRN PRN Reason: Nicotine Cravings Last Admin: 09/13/23 08:19 Dose: 6 mg Oxcarbazepine (Oxcarbazepine 300 Mg Tablet) 300 mg PO DAILY TIM Stop: 09/14/23 09:00 Last Admin: 09/13/23 08:05 Dose: 300 mg Polyethylene Glycol (Polyethylene Glycol 3350 17 Gm Powd.Pack) 17 gm PO BID PRN PRN Reason: Constipation Last Admin: 09/13/23 08:53 Dose: 17 gm Quetiapine Fumarate (Quetiapine Fumarate 50 Mg Tablet) 50 mg PO QID PRN PRN Reason: moderate to severe anxiety Last Admin: 09/12/23 19:49 Dose: 50 mg Quetiapine Fumarate (Quetiapine Fumarate 300 Mg Tablet) 300 mg PO BEDTIME TIM Last Admin: 09/12/23 22:11 Dose: 300 mg Quetiapine Fumarate (Quetiapine Fumarate 50 Mg Tablet) 150 mg PO 0900,1500 TIM Last Admin: 09/13/23 08:05 Dose: 150 mg Trazodone HCl (Trazodone Hcl 100 Mg Tablet) 100 mg PO BEDTIME MRX1 PRN PRN Reason: Insomnia Last Admin: 09/12/23 22:12 Dose: 100 mg Venlafaxine HCl (Venlafaxine Hcl Er 150 Mg Cap.Er.24h) 150 mg PO DAILY TIM Last Admin: 09/13/23 08:05 Dose: 150 mg Allergies Allergies Allergy/AdvReac Type Severity Reaction Status Date / Time No Known Allergies Allergy Verified 03/02/23 13:28 Assessment & Plan Assessment & Plan (1) Depression: Status: Acute Code(s): F32.A - Depression, unspecified (2) Opiate use: Status: Acute Code(s): F11.90 - Opioid use, unspecified, uncomplicated (3) Alcohol use disorder: Status: Acute Code(s): F10.90 - Alcohol use, unspecified, uncomplicated Plan 38 yo male, history of major depression, alcohol and opiate use disorder, sober from both. Pt to ER from [facility] respite with SI/agitation in the context of medication changes and poor coverage in respite. As a result he became anxious and suicidal. Regime re-established and discussion of options. Plan: Collateral contact Trileptal 150 mg bid 09/06: increasing Seroquel scheduled 200 mg at bedtime, scheduling 100 mg in the morning and then having 50 mg as needed up to 4 times per day, at least 2 hours apart, while also increasing hydroxyzine to 50 mg as needed up to 4 times per day, at least 2 hours apart. 09/07: no changes 09/09/23: Increase HS Seroquel to 300 mg Increase daytime Seroquel to 100 mg bid Increase Trazodone to 100 mg 09/10/23 Continue current regime 09/11/23 Depakote ER 500 mg hs 09/12/23 Increase Depakote ER to 1000 mg HS Increase daytime Seroquel to 150 mg bid DC Trileptal Trileptal 300 mg daily (tapering). 09/13/23 Continue current tx. Informed Consent: understands Reason for continued inpatient stay Substantial Risk for: rapid decompensation Time Spent With Patient Time: Total time managing care of this patient today ____ minutes.
[2023-09-13] MEDS: QUEtiapine Fumarate 50 MG TABLET PO ×3 (12:26→20:19)
[2023-09-13] MEDS: Nicotine Polacrilex Lozenge 2 MG LOZENGE 6 MG BUCCAL ×4 (13:19→21:17)
[2023-09-13 16:36] VITALS: BP 141/77; PULSE 80; TEMP 36.7; O2SAT 98
[2023-09-13] MEDS: Mirtazapine 15 MG TABLET 45 MG PO (22:16)
[2023-09-13] MEDS: QUEtiapine Fumarate 300 MG TABLET PO (22:17)
[2023-09-13] MEDS: Divalproex Sodium ER 500 MG TAB.ER.24H 1000 MG PO (22:17)
[2023-09-13] MEDS: traZODone HCL 100 MG TABLET PO (22:18)
[2023-09-14 07:38] VITALS: BP 125/60; PULSE 83; RESP 18; TEMP 36.6; O2SAT 98
[2023-09-14] MEDS: Nicotine 21 MG PATCH.TD24 TRANSDERMA (08:14)
[2023-09-14] MEDS: OXcarbazepine 300 MG TABLET PO (08:15)
[2023-09-14] MEDS: Venlafaxine HCl ER 150 MG CAP.ER.24H PO (08:15)
[2023-09-14] MEDS: Gabapentin 400 MG CAPSULE 1200 MG PO ×3 (08:15→22:17)
[2023-09-14] MEDS: Naltrexone HCl 50 MG TABLET PO (08:15)
[2023-09-14] MEDS: QUEtiapine Fumarate 50 MG TABLET 150 MG PO (08:15)
[2023-09-14] MEDS: Nicotine Polacrilex Lozenge 2 MG LOZENGE 6 MG BUCCAL ×3 (08:24→14:32)
[2023-09-14] MEDS: polyethylene glycoL 3350 17 GM POWD.PACK PO ×2 (08:28→14:07)
[2023-09-14] MEDS: hydrOXYzine HCL 50 MG TABLET PO ×3 (09:50→17:16)
[2023-09-14] MEDS: QUEtiapine Fumarate 50 MG TABLET PO ×3 (11:02→15:51)
[2023-09-14 18:00] VITALS: BP 124/58; PULSE 81; RESP 18; TEMP 36.2; O2SAT 98
--- NOTE | 2023-09-14 19:23 | HO.PSYCHPN ---
Subjective Subjective Date of Service: 09/14/23 Reason For Visit: Depression Subjective Notes: Conditional Voluntary Interim History: Continues to report variable sleep, anxiety, especially around mid-day. Reports a decrease in depressive sx. Feeling prepared for discharge 09/16. Discussed mid-day Seroquel dosing. Medication Compliance: Yes Side effects from medications: No Attending Groups: Yes Review of Systems Acute medical concerns: No Medical Review of Systems: unchanged Review of Systems Review of Systems Yes all other systems are reviewed and are negative Mental Status Exam Mental Status Exam Patient Appearance: Appropriate Patient Orientation: Person, Place, Time and Situation Level of Consciousness: Alert Patient Behavior: Talkative and Good Eye Contact Mood Description: Constricted Affect Description: Constricted Patient Cognition Impaired: No Ability to Follow Directions: Good Speech Pattern: Appropriate and Spontaneous Speech Memory Description: Intact Hallucinations: None Delusions: Not Present Perceptual Disturbances: Depersonalization and Derealization Thought Process: Intact, Distracted and Goal Oriented Thought Content: positive for [place] and positive for Circumstantial Depressive Symptoms: Back Pain Judgement: Good Diagnostics Vital Signs (24Hr): Vital Signs - 24 hr 09/14/23 07:38 Temperature 97.9 F Pulse Rate 83 Respiratory Rate 18 Blood Pressure 125/60 Pulse Oximetry 98 Oxygen Delivery Method Room Air BMI result Body Mass Index 25.9 Labs 09/03/23 20:53 09/03/23 20:52 Medications Medications Current Medications Acetaminophen (Acetaminophen 325 Mg Tablet) 650 mg PO Q6H PRN PRN Reason: Headache/Pain Mild Scale (1-3) Last Admin: 09/11/23 13:06 Dose: 650 mg Al Hydroxide/Mg Hydroxide (Magnesium Hydrox/Alum Hydrox 30 Ml Oral.Susp) 30 ml PO Q6H PRN PRN Reason: Heartburn/Nausea Last Admin: 09/12/23 06:16 Dose: 30 ml Divalproex Sodium (Divalproex Sodium Er 500 Mg Tab.Er.24h) 1,000 mg PO BEDTIME [facility] Last Admin: 09/13/23 22:17 Dose: 1,000 mg Gabapentin (Gabapentin 400 Mg Capsule) 1,200 mg PO TID [facility] Last Admin: 09/14/23 14:24 Dose: 1,200 mg Hydroxyzine HCl (Hydroxyzine Hcl 50 Mg Tablet) 50 mg PO QID PRN PRN Reason: Mild Anxiety Last Admin: 02/11/24 17:16 Dose: 50 mg Ibuprofen (Ibuprofen 600 Mg Tablet) 600 mg PO Q6H PRN PRN Reason: muscle pain Last Admin: 09/11/23 14:26 Dose: 600 mg Magnesium Hydroxide (Milk Of Magnesia 30 Ml Oral.Susp) 30 ml PO DAILY PRN PRN Reason: Constipation Last Admin: 09/12/23 12:32 Dose: 30 ml Mirtazapine (Mirtazapine 15 Mg Tablet) 45 mg PO BEDTIME [facility] Last Admin: 09/13/23 22:16 Dose: 45 mg Multi-Ingred Cream/Lotion/Oil/Oint (Mineral Oil/Petrolatum,White 106 Gm Tube) 1 appl TOPICAL BID [facility]; Protocol Last Admin: 09/14/23 08:15 Dose: Not Given Naltrexone HCl (Naltrexone Hcl 50 Mg Tablet) 50 mg PO DAILY [facility] Last Admin: 09/14/23 08:15 Dose: 50 mg Nicotine (Nicotine 21 Mg Patch.Td24) 21 mg TRANSDERMA DAILY [facility] Last Admin: 09/14/23 08:14 Dose: 21 mg Nicotine Polacrilex (Nicotine Polacrilex Lozenge 2 Mg Lozenge) 6 mg BUCCAL Q2H PRN PRN Reason: Nicotine Cravings Last Admin: 09/14/23 14:32 Dose: 6 mg Polyethylene Glycol (Polyethylene Glycol 3350 17 Gm Powd.Pack) 17 gm PO BID PRN PRN Reason: Constipation Last Admin: 09/14/23 14:07 Dose: 17 gm Quetiapine Fumarate (Quetiapine Fumarate 50 Mg Tablet) 50 mg PO QID PRN PRN Reason: moderate to severe anxiety Last Admin: 09/14/23 15:51 Dose: 50 mg Quetiapine Fumarate (Quetiapine Fumarate 300 Mg Tablet) 300 mg PO BEDTIME [facility] Last Admin: 09/13/23 22:17 Dose: 300 mg Quetiapine Fumarate (Quetiapine Fumarate 50 Mg Tablet) 150 mg PO 0900 TIM Quetiapine Fumarate (Quetiapine Fumarate 200 Mg Tablet) 200 mg PO DAILY@1300 TIM Trazodone HCl (Trazodone Hcl 100 Mg Tablet) 100 mg PO BEDTIME MRX1 PRN PRN Reason: Insomnia Last Admin: 09/13/23 22:18 Dose: 100 mg Venlafaxine HCl (Venlafaxine Hcl Er 150 Mg Cap.Er.24h) 150 mg PO DAILY [facility] Last Admin: 09/14/23 08:15 Dose: 150 mg Allergies Allergies Allergy/AdvReac Type Severity Reaction Status Date / Time No Known Allergies Allergy Verified 03/02/23 13:28 Assessment & Plan Assessment & Plan (1) Depression: Status: Acute Code(s): F32.A - Depression, unspecified (2) Opiate use: Status: Acute Code(s): F11.90 - Opioid use, unspecified, uncomplicated (3) Alcohol use disorder: Status: Acute Code(s): F10.90 - Alcohol use, unspecified, uncomplicated Plan 38 yo male, history of major depression, alcohol and opiate use disorder, sober from both. Pt to ER from [facility] respite with SI/agitation in the context of medication changes and poor coverage in respite. As a result he became anxious and suicidal. Regime re-established and discussion of options. Plan: Collateral contact Trileptal 150 mg bid 09/06: increasing Seroquel scheduled 200 mg at bedtime, scheduling 100 mg in the morning and then having 50 mg as needed up to 4 times per day, at least 2 hours apart, while also increasing hydroxyzine to 50 mg as needed up to 4 times per day, at least 2 hours apart. 09/07: no changes 09/09/23: Increase HS Seroquel to 300 mg Increase daytime Seroquel to 100 mg bid Increase Trazodone to 100 mg 09/10/23 Continue current regime 09/11/23 Depakote ER 500 mg hs 09/12/23 Increase Depakote ER to 1000 mg HS Increase daytime Seroquel to 150 mg bid DC Trileptal Trileptal 300 mg daily (tapering). 09/13/23 Continue current tx. 09/14/23 Increase mid-day seroquel to 200 mg Reason for continued inpatient stay Substantial Risk for: rapid decompensation Time Spent With Patient Time: Total time managing care of this patient today ____ minutes.
[2023-09-14] MEDS: QUEtiapine Fumarate 300 MG TABLET PO (22:17)
[2023-09-14] MEDS: Mirtazapine 15 MG TABLET 45 MG PO (22:18)
[2023-09-14] MEDS: traZODone HCL 100 MG TABLET PO (22:18)
[2023-09-14] MEDS: Divalproex Sodium ER 500 MG TAB.ER.24H 1000 MG PO (22:18)
[2023-09-15 08:02] VITALS: BP 135/75; PULSE 92; RESP 16; TEMP 36.7; O2SAT 98
[2023-09-15] MEDS: Gabapentin 400 MG CAPSULE 1200 MG PO ×3 (08:20→22:20)
[2023-09-15] MEDS: Nicotine 21 MG PATCH.TD24 TRANSDERMA (08:20)
[2023-09-15] MEDS: Nicotine Polacrilex Lozenge 2 MG LOZENGE 6 MG BUCCAL ×2 (08:21→12:56)
[2023-09-15] MEDS: Naltrexone HCl 50 MG TABLET PO (08:21)
[2023-09-15] MEDS: Venlafaxine HCl ER 150 MG CAP.ER.24H PO (08:21)
[2023-09-15] MEDS: Mineral Oil/Petrolatum,White 106 GM Tube 1 APPL TOPICAL ×2 (08:25→20:02)
[2023-09-15] MEDS: QUEtiapine Fumarate 50 MG TABLET 150 MG PO (08:32)
--- NOTE | 2023-09-15 09:18 | HO.PSYCHPN ---
Subjective Subjective Date of Service: 09/15/23 Reason For Visit: Depression Subjective Notes: Conditional Voluntary Interim History: Reviewed with Dr. Mccauley. Pt reports feeling pretty good today; pt stated, my depression is down but I have a lot of anxiety about leaving here and going back to everyday life . denies SI/HI/VH/AH. Medication Compliance: Yes Side effects from medications: No Review of Systems Constitutional: Reports as per HPI Eyes: Reports as per HPI Reports as per HPI Cardiovascular: Reports as per HPI Respiratory: Reports as per HPI Gastrointestinal: Reports as per HPI Genitourinary: Reports as per HPI Musculoskeletal: Reports as per HPI Skin/Breast: Reports as per HPI Reports as per HPI Psychiatric: Reports as per HPI Endocrine: Reports as per HPI Hematologic/Lymphatic: Reports as per HPI Allergic/Immunologic: Reports as per HPI Mental Status Exam Mental Status Exam Narrative: Pt is alert and oriented; behavior is cooperative and calm; dressed in casual attire; mood is described as anxious ; eye contact appropriate; Speech is normal rate, volume and prosody and not pressured; thought process is organized; denies SI/HI/VH/AH. Diagnostics Vital Signs (24Hr): Vital Signs - 24 hr 09/14/23 18:00 09/15/23 08:02 Temperature 97.2 F 98.1 F Pulse Rate 81 92 Respiratory Rate 18 16 Blood Pressure 124/58 L 135/75 Pulse Oximetry 98 98 Oxygen Delivery Method Room Air Room Air BMI result Body Mass Index 25.9 Labs 09/03/23 20:53 09/03/23 20:52 Medications Medications Current Medications Acetaminophen (Acetaminophen 325 Mg Tablet) 650 mg PO Q6H PRN PRN Reason: Headache/Pain Mild Scale (1-3) Last Admin: 09/11/23 13:06 Dose: 650 mg Al Hydroxide/Mg Hydroxide (Magnesium Hydrox/Alum Hydrox 30 Ml Oral.Susp) 30 ml PO Q6H PRN PRN Reason: Heartburn/Nausea Last Admin: 09/12/23 06:16 Dose: 30 ml Divalproex Sodium (Divalproex Sodium Er 500 Mg Tab.Er.24h) 1,000 mg PO BEDTIME TIM Last Admin: 09/14/23 22:18 Dose: 1,000 mg Gabapentin (Gabapentin 400 Mg Capsule) 1,200 mg PO TID TIM Last Admin: 09/15/23 08:20 Dose: 1,200 mg Hydroxyzine HCl (Hydroxyzine Hcl 50 Mg Tablet) 50 mg PO QID PRN PRN Reason: Mild Anxiety Last Admin: 09/14/23 17:16 Dose: 50 mg Ibuprofen (Ibuprofen 600 Mg Tablet) 600 mg PO Q6H PRN PRN Reason: muscle pain Last Admin: 09/11/23 14:26 Dose: 600 mg Magnesium Hydroxide (Milk Of Magnesia 30 Ml Oral.Susp) 30 ml PO DAILY PRN PRN Reason: Constipation Last Admin: 09/12/23 12:32 Dose: 30 ml Mirtazapine (Mirtazapine 15 Mg Tablet) 45 mg PO BEDTIME [facility] Last Admin: 09/14/23 22:18 Dose: 45 mg Multi-Ingred Cream/Lotion/Oil/Oint (Mineral Oil/Petrolatum,White 106 Gm Tube) 1 appl TOPICAL BID [facility]; Protocol Last Admin: 09/15/23 08:25 Dose: 1 appl Naltrexone HCl (Naltrexone Hcl 50 Mg Tablet) 50 mg PO DAILY [facility] Last Admin: 09/15/23 08:21 Dose: 50 mg Nicotine (Nicotine 21 Mg Patch.Td24) 21 mg TRANSDERMA DAILY [facility] Last Admin: 09/15/23 08:20 Dose: 21 mg Nicotine Polacrilex (Nicotine Polacrilex Lozenge 2 Mg Lozenge) 6 mg BUCCAL Q2H PRN PRN Reason: Nicotine Cravings Last Admin: 09/15/23 08:21 Dose: 6 mg Polyethylene Glycol (Polyethylene Glycol 3350 17 Gm Powd.Pack) 17 gm PO BID PRN PRN Reason: Constipation Last Admin: 09/14/23 14:07 Dose: 17 gm Quetiapine Fumarate (Quetiapine Fumarate 50 Mg Tablet) 50 mg PO QID PRN PRN Reason: moderate to severe anxiety Last Admin: 09/14/23 15:51 Dose: 50 mg Quetiapine Fumarate (Quetiapine Fumarate 300 Mg Tablet) 300 mg PO BEDTIME [facility] Last Admin: 09/14/23 22:17 Dose: 300 mg Quetiapine Fumarate (Quetiapine Fumarate 50 Mg Tablet) 150 mg PO 0900 TIM Last Admin: 09/15/23 08:32 Dose: 150 mg Quetiapine Fumarate (Quetiapine Fumarate 200 Mg Tablet) 200 mg PO DAILY@1300 TIM Trazodone HCl (Trazodone Hcl 100 Mg Tablet) 100 mg PO BEDTIME MRX1 PRN PRN Reason: Insomnia Last Admin: 09/14/23 22:18 Dose: 100 mg Venlafaxine HCl (Venlafaxine Hcl Er 150 Mg Cap.Er.24h) 150 mg PO DAILY TIM Last Admin: 09/15/23 08:21 Dose: 150 mg Allergies Allergies Allergy/AdvReac Type Severity Reaction Status Date / Time No Known Allergies Allergy Verified 03/02/23 13:28 Assessment & Plan Assessment & Plan (1) Depression: Status: Acute Code(s): F32.A - Depression, unspecified (2) Opiate use: Status: Acute Code(s): F11.90 - Opioid use, unspecified, uncomplicated (3) Alcohol use disorder: Status: Acute Code(s): F10.90 - Alcohol use, unspecified, uncomplicated Plan 38 yo male, history of major depression, alcohol and opiate use disorder, sober from both. Pt to ER from [facility] respite with SI/agitation in the context of medication changes and poor coverage in respite. As a result he became anxious and suicidal. Regime re-established and discussion of options. Plan: Collateral contact Trileptal 150 mg bid 09/06: increasing Seroquel scheduled 200 mg at bedtime, scheduling 100 mg in the morning and then having 50 mg as needed up to 4 times per day, at least 2 hours apart, while also increasing hydroxyzine to 50 mg as needed up to 4 times per day, at least 2 hours apart. 09/07: no changes 09/09/23: Increase HS Seroquel to 300 mg Increase daytime Seroquel to 100 mg bid Increase Trazodone to 100 mg 09/10/23 Continue current regime 09/11/23 Depakote ER 500 mg hs 09/12/23 Increase Depakote ER to 1000 mg HS Increase daytime Seroquel to 150 mg bid DC Trileptal Trileptal 300 mg daily (tapering). 09/13/23 Continue current tx. 09/14/23 Increase mid-day seroquel to 200 mg 09/15: continue current tx plan. Patient educated on: diagnosis and medication risk/benefits Informed Consent: understands Reason for continued inpatient stay Substantial Risk for: med/psych decompensation Time Spent With Patient Time: Total time managing care of this patient today _20___ minutes.
[2023-09-15] MEDS: hydrOXYzine HCL 50 MG TABLET PO ×3 (09:37→17:49)
[2023-09-15] MEDS: QUEtiapine Fumarate 50 MG TABLET PO ×3 (10:32→20:08)
[2023-09-15] MEDS: polyethylene glycoL 3350 17 GM POWD.PACK PO (11:42)
[2023-09-15] MEDS: QUEtiapine Fumarate 200 MG TABLET PO (12:56)
[2023-09-15 18:00] VITALS: BP 108/60; PULSE 86; RESP 18; TEMP 36.7; O2SAT 99
[2023-09-15] MEDS: Mirtazapine 15 MG TABLET 45 MG PO (22:19)
[2023-09-15] MEDS: Divalproex Sodium ER 500 MG TAB.ER.24H 1000 MG PO (22:19)
[2023-09-15] MEDS: QUEtiapine Fumarate 300 MG TABLET PO (22:20)
[2023-09-16 08:03] VITALS: BP 125/62; PULSE 98; RESP 16; TEMP 36.8; O2SAT 97
[2023-09-16] MEDS: Gabapentin 400 MG CAPSULE 1200 MG PO (08:29)
[2023-09-16] MEDS: Naltrexone HCl 50 MG TABLET PO (08:29)
[2023-09-16] MEDS: Venlafaxine HCl ER 150 MG CAP.ER.24H PO (08:29)
[2023-09-16] MEDS: Nicotine 21 MG PATCH.TD24 TRANSDERMA (08:29)
[2023-09-16] MEDS: Nicotine Polacrilex Lozenge 2 MG LOZENGE 6 MG BUCCAL (08:29)
[2023-09-16] MEDS: QUEtiapine Fumarate 50 MG TABLET 150 MG PO (09:14)
[2023-09-16] MEDS: hydrOXYzine HCL 50 MG TABLET PO (09:59)
--- NOTE | 2023-09-16 10:30 | PM.PSYDC ---
DS: Providers Provider Date of Service: 09/16/23 Date of admission: 09/04/23 14:37 Date of discharge: 09/16/23 Primary care physician: Unknown Physician Admitting clinician: Mayte Weber Attending physician on admission: Rodney Mccauley Attending physician on discharge: Rodney Mccauley Discharging clinician: Mayte Weber DS: Diagnosis Discharge Diagnosis (1) Depression: Status: Acute (2) Opiate use: Status: Acute (3) Alcohol use disorder: Status: Acute DS: Medications Discharge Medications Home Medications: Previous Rx's Medication Instructions Recorded divalproex 500 mg tablet,extended 1,000 mg (2 x 500 mg) PO BEDTIME 09/16/23 release 24 hr #60 tabs gabapentin 400 mg capsule 1,200 mg (3 x 400 mg) PO TID 30 09/16/23 days #270 caps mirtazapine 15 mg tablet 45 mg (3 x 15 mg) PO BEDTIME 30 09/16/23 days #90 tabs naltrexone 50 mg tablet 50 mg PO DAILY 30 days #30 tabs 09/16/23 nicotine (polacrilex) 2 mg gum 4 mg buccal Q2H PRN Nicotine 09/16/23 Cravings 30 days #396 ea nicotine 21 mg/24 hr daily 21 mg transdermal DAILY 28 days 09/16/23 transdermal patch #28 ea polyethylene glycol 3350 17 gram 17 g PO BID PRN Constipation #1 09/16/23 oral powder packet units quetiapine 200 mg tablet 200 mg PO DAILY@1300 #30 tabs 09/16/23 quetiapine 300 mg tablet 300 mg PO BEDTIME #30 tabs 09/16/23 quetiapine 50 mg tablet 150 mg (3 x 50 mg) PO 0900 #30 tabs 09/16/23 venlafaxine 75 mg capsule,extended 150 mg (2 x 75 mg) PO DAILY #60 09/16/23 release 24 hr caps Mental Status Exam Mental Status Exam Patient Appearance: Appropriate Patient Orientation: Person, Place, Time and Situation Level of Consciousness: Alert Patient Behavior: Talkative and Good Eye Contact Mood Description: Constricted Affect Description: Constricted Patient Cognition Impaired: No Ability to Follow Directions: Good Speech Pattern: Appropriate and Spontaneous Speech Memory Description: Intact Hallucinations: None Delusions: Not Present Perceptual Disturbances: Depersonalization and Derealization Thought Process: Intact, Distracted and Goal Oriented Thought Content: positive for [place] and positive for Circumstantial Depressive Symptoms: Back Pain Judgement: Good DS: Summary Hospital Course Hospital Course: Admission to adult psychiatry for exacerbation of anxiety, mood disorder, opiate use disorder, alcohol use disorder. Medications were reviewed, adjusted and titrated. Depakote was initiated, Seroquel was titrated. Pt was participatory in the milieu, exhibited no behavioral dyscontrol and scheduled discharge to return to out patient care and to have consultation regarding a plan for his bilateral carpal tunnel syndrome. Status at Discharge Overall status at discharge: patient is progressing back to baseline Time Spent with Patient Time attestation: Total time managing care of this patient today ____ minutes. Time spent: Greater than 30 minutes Discharge Plan Discharge Anticipated Discharge Date/Time: 09/16/23 12:18 Patient Disposition: Home, Self-Care Discharge Diagnosis: Mood Disorder Anxiety Alcohol/Opiate Use Disorder Bilateral Carpal Tunnel Syndrome Referrals: Esteban Poe: [facility] (therapist) [Other] - 09/17/23 11:45 am (Hospital Discharge Appointment with therapist Appointment is in office ) Hernán Rivera: [facility](psychiatry) [Other] - 09/18/23 9:40 am (Hospital discharge appointment with psychiatric medication provider Appointment is by tele-health) [facility] Partial Hospitalization Program (PHP) [Other] - 1 Week (Patient referred to [facility] PHP program ) Regulo Pillai MD [Physician] - 12/30/23 10:15 am (First PCP appt.) Discharge Medications: New quetiapine 300 mg Tablet 300 mg PO BEDTIME Qty: 30 0RF polyethylene glycol 3350 17 gram Powder In Packet 17 g PO BID PRN (Reason: Constipation) Qty: 1 0RF quetiapine 200 mg Tablet 200 mg PO DAILY@1300 Qty: 30 0RF divalproex 500 mg Tablet Extended Release 24 Hr 1,000 mg PO BEDTIME Qty: 60 0RF quetiapine 50 mg Tablet 150 mg PO 0900 Qty: 30 0RF Continued nicotine (polacrilex) 2 mg Gum 4 mg buccal Q2H PRN (Reason: Nicotine Cravings) 30 Days Qty: 396 0RF naltrexone 50 mg Tablet 50 mg PO DAILY 30 Days Qty: 30 0RF gabapentin 400 mg Capsule 1,200 mg PO TID 30 Days Qty: 270 0RF nicotine 21 mg/24 hr Patch 24 Hour 21 mg transdermal DAILY 28 Days Qty: 28 0RF mirtazapine 15 mg Tablet 45 mg PO BEDTIME 30 Days Qty: 90 0RF Changed venlafaxine 75 mg capsule,extended release 24hr 150 mg PO DAILY Qty: 60 0RF Discontinued quetiapine 25 mg Tablet 50 mg PO TID PRN (Reason: anxiety) 30 Days Qty: 180 0RF quetiapine 100 mg tablet 150 mg PO BEDTIME Discharge Orders: Discharge Order (Routine); Ordered 09/16/23 Ordered By: Mayte Weber Diet: Advance to usual diet Activity on Discharge: As tolerated Stand Alone Forms: Patient Portal Discharge page Care Plan Goals: Mood and Behavioral Stabilization Work on Sobriety Health Concerns: Mood and Behavioral Stabilization Work on Sobriety Plan of Treatment: [facility] Elke Jeronimo. Mcgregor [phone] Consult appt September 18, 2023 5pm. Please bring insurance card and ID. Per PCP, Dr. Pillai's office [phone] you do NOT need a referral to attend this appt. Attend scheduled appointments Take medications as directed You will need regular lab work as you are taking Depakote. Please discuss this schedule with your psychiatric provider. Assessment: Pt fully oriented and without SI/HI. Feels prepared to discharge and that this is appropriate. Pt has insight and demonstrates good judgment in terms of wanting to pursue treatment. Pt is not in imminent risk of harm to self or others and has a safety plan that includes presenting to the closest ER or calling 911 if feeling unsafe. Pt has been observed closely by nursing and unit staff throughout admission. Pt has not engaged in any behaviors that suggest dangerousness to self or others and has demonstrated appropriate behaviors and impulse control.
== END 2023-09-16 11:13 | disposition home or self-care (01) | DRG 754 ==
LOC: HO.ED 21:16 → HO.PM5 09-04 14:38
PROVIDERS: Admitting Provider Clinical Nurse Specialist Psychiatric/Mental Health, Adult; Emergency Provider Emergency Medicine; Visit Provider Clinical Nurse Specialist Psychiatric/Mental Health, Adult
DX: F32.A Depression, unspecified (principal); R45.851 Suicidal ideations; F17.210 Nicotine dependence, cigarettes, uncomplicated; F41.9 Anxiety disorder, unspecified; F10.91 Alcohol use, unspecified, in remission; F11.91 Opioid use, unspecified, in remission; G56.03 Carpal tunnel syndrome, bilateral upper limbs; Z20.822 Contact with and (suspected) exposure to COVID-19; Z71.6 Tobacco abuse counseling; Z79.899 Other long term (current) drug therapy
CPT/HCPCS: 36415; 80053; 80061; 80307; 81003; 82607; 83036; 83540; 83735; 84439; 84443; 85025; 87635; 93005; 99285; S9485

== ENCOUNTER → 2023-09-04 08:21 | Outpatient (BNV) | payer OTHER, SELFPAY | PROVIDERS: Emergency Provider Emergency Medicine; Visit Provider Internal Medicine Cardiovascular Disease | DX: I49.9 Cardiac arrhythmia, unspecified (principal) | CPT/HCPCS: 93010 ==

== ENCOUNTER → 2023-09-04 14:37 | Outpatient (BNV) | payer OTHER, SELFPAY | PROVIDERS: Admitting Provider Clinical Nurse Specialist Psychiatric/Mental Health, Adult; Emergency Provider Emergency Medicine; Visit Provider Clinical Nurse Specialist Psychiatric/Mental Health, Adult | DX: F33.2 Major depressive disorder, recurrent severe without psychotic features (principal); F11.90 Opioid use, unspecified, uncomplicated; F10.90 Alcohol use, unspecified, uncomplicated | CPT/HCPCS: 90792; 99231; 99232; 99239 ==

== ENCOUNTER 2023-09-19 11:15 | Outpatient (RCR) | payer OTHER, SELFPAY ==
[2023-09-17 11:45] VITALS: BP 132/81; PULSE 85; TEMP 36.6
[2023-09-17 11:48] VITALS: BMI 24.9
--- NOTE | 2023-09-17 12:37 | PC.ADMIT ---
Patient is a 38 year old male who was referred to [facility] by [facility] inpatient behavioral health unit where he was admitted d/t increased depression with SI and agitation. Patient reportedly was at Respite prior to admission and was upset and agitated as he was having issues with his medications while there. See Integrative Assessment for more information. Toxicology screen done on 09/03/23 Negative. BAL less than 10. Patient has been hospitalized 2x since July 2023. He has a history of Opiate and ETOH use reports last time he use opiates was mid-June 2023 and last used ETOH mid-July 2023. He reports he was using Oxycontin 8-10 30 mg tabs a day and drinking a pint of Vodka daily x 3 weeks prior to hospitalization in Mid July. He reports he has not worked in 4-5 months. 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 Patient needs he needs to get hand surgery. Unable to work safely d/t carpal tunnel in bilateral hands. He has an appointment tomorrow at 1700 with an orthopedic surgeon for surgical consultation of bilateral hands . Patient reports he has a fiance' who is supportive. They have plans to in December 2023. He reports she does not have issues with substance use. Patient is alert and oriented x4. He is calm and cooperative. He presented with depressed mood and anxious affect. He denied SI, HI. He was given a copy of his safety plan if needed. Medications reconciled with inpatient discharge paperwork and with patient. He reports he forgot to take his bedtime medications last night. Reports he did take his morning medications. Reviewed tips to help him remember to take his medicines daily.
--- NOTE | 2023-09-18 14:21 | HO.PHP ---
Client's case has been opened and reviewed in treatment team.
[2023-09-19 08:13] LABS: Amphetamine Screen Urine Not Detected (Not Detect); Barbiturates, Urine Not Detected (Not Detect); Benzodiazepines Screen Urine Not Detected (Not Detect); Cannabinoid Screen Urine Not Detected (Not Detect); Cocaine Screen Urine Not Detected (Not Detect); Fentanyl, urine Not Detected (Not Detect); Opiate Screen Urine Not Detected (Not Detect); Phencyclidine Screen Urine Not Detected (Not Detect)
--- NOTE | 2023-09-19 23:48 | HO.PS.ADMBH ---
HPI Date of Service: 09/19/23 Chief Complaint: anxiety,depression Sources of Information: patient interviewed, chart reviewed and crisis/core team assessment reviewed HPI Narrative: Patient is 38 yo male being stepped down from [facility] after 2 weeks on M5, he was discharged 2 days ago. He reports he had been struggling with anxiety, mood, agitation, sleep in the community so his therapist referred him to [facility] respite but reportedly his medications were getting messed up and indicates that he was getting agitated and was not allowed to leave AMA, so he had made some suicidal threats with the intention of getting transported out of their facility and sent to the hospital. He reports inpatient stay was helpful and that they increased his Seroquel dose and started him on Depakote which is already titrated to 1000 mg/d. Patient reportedly tolerating his medications and denies any adverse effects. He reports mood is not totally great, but also not super-depressed . His appetite is soso, not really hungry . Sleep is improved but still not sleeping but for a few hours at a time. He reports that back in June ad July he didn't sleep for several days, and only got several hours of sleep a week for several weeks and also experienced increased agitation, poor appetite and weight loss. Clinical history also complicated by medical issues, chornic pain issues as well as history of substance abuse including opioid addiction (pain meds) however patient reportedly transitioned to Suboxone 1.5 years ago and then was tapered off. Denies any further opioid or illicit substance use for over a year. Cannabis last used 2 months ago. Of note, reviewing patient's lab work spanning over the past 2-3 months, UDS/toxicology have all returned negative for any substances. Patient denies any AH, VH or paranoia. He denies any history suggestive, but endorses symptoms of rosalia episodically in the past. He denies any current issues with anger or irritability or aggression. According to chart, patient carries diagnoses for MDD, alcohol and opiate use disorder, however there appears to be a history suggestive of underlying bipolar spectrum disorder both in and outside the context of substance use. Patient reports however he primarily struggles with PTSD, hx of being in the ([employer] at age 21 x 1.5 yrs) and has experiences struggling with hypervigilence and in fact he presented to the program today with his large dog Moose who is his emotional support animal . He says his dog is not a service animal and that he did not bring his dog with him to respite, nor was his dog allowed on the inpatient unit. r Current Medications: Seroquel 150 mg qAM Seroquel 200 mg qd after lunch Seroquel 300 mg qhs Depakote 1000 mg qhs venlafaxine 150 mg qd gabapentin 1200 mg TID mirtazapine 45 mg qhs naltrexone 50 mg qhs Past Psychiatric History: hosps: C M3 SA: none SIB: none HIB: none outpt: no Hx [facility] Medical History (Updated 10/23/23 @ 01:19 by Kirsten Kirkpatrick MD) Alcohol use disorder Opiate use Depression Family History: denies any FH of mental health issues or addiction, denies suicides in family Social History: HS grad. lives with his fiancee and two children in a home they own. 14 yo, his bio child, and 10 yo, his step-child. 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 Substance History: hx of opioid addiction (pain meds) denies heroin use or IVDA last use >1 year ago. Was treated with Suboxone for a few months in 2021 at [facility], denies any further opioid use alcohol use about a pint a day, since teen years, denies withdrawals or black outs. admits some binge drinking habits in past cocaine use - sporadic in past, used socially since age 25, last use >1 year ago cannabis use - occasional, denies any abuse issues, last use 1.5 months ago Trauma History: i was in the [employer]. that was traumatic enough. Diagnostics Vital Signs (24Hr): BMI result Body Mass Index 24.9 Labs Labs: Laboratory Results - last 48 hr 09/17/23 12:13 Urine Opiates Screen Not Detected Urine Fentanyl Screen Not Detected Ur Barbiturates Screen Not Detected Ur Phencyclidine Scrn Not Detected Ur Amphetamines Screen Not Detected U Benzodiazepines Scrn Not Detected Urine Cocaine Screen Not Detected U Marijuana (THC) Screen Not Detected Meds/Allergies Allergies Allergies Allergy/AdvReac Type Severity Reaction Status Date / Time No Known Allergies Allergy Verified 03/02/23 13:28 Mental Status Exam Mental Status Exam Narrative: Alert, oriented, in no acute distress. Calm, cooperative, engaged. No psychomotor agitation or neurovegetative retardation. Eye contact maintained. Mood depressed, affect constricted. Speech normal. Thought process linear, coherent. Thought content related to stressors, transient hopelessness, denies SI or HI. No paranoia or delusional content elicited. No evidence of psychosis. Insight and judgment - fair but adequate. Assessment & Plan Assessment & Plan (1) PTSD (post-traumatic stress disorder): Status: Acute Code(s): F43.10 - Post-traumatic stress disorder, unspecified (2) Depressive disorder, not elsewhere classified: Status: Acute Code(s): F32.89 - Other specified depressive episodes (3) Bipolar disorder, unspecified: Status: Acute Code(s): F31.9 - Bipolar disorder, unspecified Assessment and Plan: hx suggestive of bipolar affective spectrum disorder r/o Bipolar II vs MDD + SIMD (4) Alcohol abuse: Status: Acute Code(s): F10.10 - Alcohol abuse, uncomplicated (5) Cannabis use with anxiety disorder: Status: Acute Code(s): F12.980 - Cannabis use, unspecified with anxiety disorder (6) Nicotine dependence: Status: Acute Code(s): F17.200 - Nicotine dependence, unspecified, uncomplicated (7) Opioid use disorder in remission: Status: Acute Code(s): F11.91 - Opioid use, unspecified, in remission Plan Admit to [facility] reviewed VS: stable continue regular medications discussed starting topiramate 25 mg BID to target cravings recent lab work reviewed, will obtain a VPA level reached out to Department admin regarding hospital policy regarding having an RAI at program. Given his dog is not a service animal, patient is not permitted to bring his dog to the program. I relayed these policies to the patient who expressed his disappointment but said he understood and was agreeable to bringing his dog home following the end of our meeting today. UDS as indicated [facility] reviewed monitor as per protocol Patient educated on: diagnosis, medication risk/benefits, substance abuse and other (Hospital policy regarding RAI) Informed Consent: understands Reason for continued partial hosp. stay Substantial Risk for: med/psych decompensation Certification I certify that partial hospital treatment is medically necessary due to the symptoms and problems resulting from the patient's mental illness and the failure to treat the patient at the partial hospital level of care would likely result in the patient requiring inpatient psychiatric care which could not be prevented at a less intensive level of care. Time Spent With Patient Time: Total time managing care of this patient today __60__ minutes.
== END 2023-09-19 23:59 | disposition home or self-care (01) ==
LOC: HO.PHPA 11:15
PROVIDERS: Visit Provider Psychiatry & Neurology Psychiatry
DX: F33.9 Major depressive disorder, recurrent, unspecified (principal); F41.1 Generalized anxiety disorder; F11.20 Opioid dependence, uncomplicated; F10.20 Alcohol dependence, uncomplicated
CPT/HCPCS: 80307; 90791; 90853

== ENCOUNTER → 2023-09-19 11:15 | Outpatient (BNV) | payer OTHER, SELFPAY | PROVIDERS: Visit Provider Psychiatry & Neurology Psychiatry | DX: F12.980 Cannabis use, unspecified with anxiety disorder (principal); F10.10 Alcohol abuse, uncomplicated; F17.200 Nicotine dependence, unspecified, uncomplicated; F11.91 Opioid use, unspecified, in remission; F31.9 Bipolar disorder, unspecified; F43.10 Post-traumatic stress disorder, unspecified | CPT/HCPCS: 90792 ==

== ENCOUNTER 2023-10-20 11:36 | Outpatient (REF) | payer OTHER, SELFPAY | END 2023-10-20 11:37 | disposition home or self-care (01) | LOC: HO.LAB 11:36 | PROVIDERS: PCP Internal Medicine; Visit Provider Nurse Practitioner Psychiatric/Mental Health | DX: Z79.899 Other long term (current) drug therapy (principal) | CPT/HCPCS: 36415; 80164 ==

== ENCOUNTER 2023-11-13 08:53 | Outpatient (AMB) | payer OTHER, SELFPAY ==
[2023-11-13 09:27] VITALS: BP 120/70; PULSE 75; TEMP 36.5; O2SAT 97; BMI 25.3
--- NOTE | 2023-11-13 09:27 | AM.OFFWIN_ITS ---
Intake Vital Signs 11/13/23 09:27 Height 5 ft 6 in Weight 157 lb BMI 25.3 BP 120/70 Blood Pressure Location Lt brachial Position Sitting Pulse 75 Pulse Source Pulse Oximeter Temp 97.7 F Temp Source Temporal Artery Scan Pulse Oximetry (%) 97 Oxygen Delivery Method Room Air Intake Visit Reasons: EP lft arm swollen/pain Intake Note: pt is here today for lft arm swollen pain started 2 days ago Patient Tobacco Use Status: Current everyday Tobacco user Allergies No Known Allergies Allergy (Verified 11/13/23 09:30) Do you need a note to return to daycare/school/sports/work: No HPI HPI Comments History of Present Illness Details 38 y/o male patient who presents to walk in clinic with c/o left arm pain and swelling x 2 days. Pt believes he might have injured himself at work, but does not remember how. Reports swelling and pain with movement. [facility] Medical History (Updated 10/23/23 @ 01:19 by Kirsten Kirkpatrick MD) Alcohol use disorder Opiate use Depression Social History Household Members: Significant Other and Children Housing: House Do you presently have visiting nurse or other home services: No Patient Tobacco Use Status: Current everyday Tobacco user Tobacco use type: Cigarette Cigarette Packs Per Day: 30 Cigarettes Per Day: 30 Years Smoked: 20 e-Cigarette/Vaping Use: Never Used Second Hand Smoke Exposure: Yes Substance Use Type: Marijuana and Caffiene service: Yes (Other than honorable D/C 15 years ago; [place]) Sexual orientation: Straight/Heterosexual Review of Systems Const All systems reviewed & are unremarkable except as noted in HPI and below Physical Exam Vital Signs: Last Vital Signs Temp 97.7 F 11/13/23 09:27 Pulse 75 11/13/23 09:27 BP 120/70 11/13/23 09:27 Pulse Ox 97 11/13/23 09:27 Oxygen Delivery Method Room Air 11/13/23 09:27 BMI result Body Mass Index 25.3 Const General: comfortable and no acute distress Orientation/consciousness: patient oriented x3 Neuro General: patient oriented x3 and gait normal Extrem Left upper extremity: wrist and hand Details: normal capillary refill, neuromotor exam normal, neurosensory exam normal, tenderness, normal ROM of fingers, warmth, swelling and crepitus Psych Speech and movement: Normal speech and movement present Assessment & Plan Assessment & Plan (1) Sprain and strain of left hand: Code(s): S63.92XA - Sprain of unspecified part of left wrist and hand, initial encounter; S66.912A - Strain of unspecified muscle, fascia and tendon at wrist and hand level, left hand, initial encounter Plan: - Xray ordered - Wrist/hand Brace applied - Wrapped hand/wrist with Beni - Icehot - Ibuprofen for pain relief Orders: Orders XR hand wrist LT Today M79.642 - Pain in left hand Coding Level of Care Code Est Pt Level 4 (55649) Diagnoses Sprain and strain of left hand S63.92XA; S66.912A
== END 2023-11-13 10:12 | disposition home or self-care (01) ==
PROVIDERS: PCP Internal Medicine; Visit Provider Nurse Practitioner Family
DX: S63.92XA Sprain of unspecified part of left wrist and hand, initial encounter (principal); S66.912A Strain of unspecified muscle, fascia and tendon at wrist and hand level, left hand, initial encounter
CPT/HCPCS: 99214

== ENCOUNTER 2023-11-13 09:49 | Outpatient (REF) | payer OTHER, SELFPAY ==
--- NOTE | ~2023-11-13 | XR_ITS ---
EXAMINATION: XR HAND/WRIST, LEFT CLINICAL INFORMATION: Left hand and wrist swelling after work injury COMPARISON: None TECHNIQUE: PA, lateral, and oblique views of the left hand and wrist. FINDINGS: The bones and soft tissues are normal. No fracture. Alignment is anatomic. Joint spaces are maintained. No erosions or soft tissue calcifications. XR/XR hand wrist LT IMPRESSION: Normal radiographs of the hand and wrist.
== END 2023-11-13 09:50 | disposition home or self-care (01) ==
LOC: HO.HMGCX 09:49
PROVIDERS: PCP Internal Medicine; Visit Provider Nurse Practitioner Family
DX: M79.642 Pain in left hand (principal); R60.0 Localized edema
CPT/HCPCS: 73110; 73130

== ENCOUNTER 2024-02-24 13:29 | Outpatient (AMB) | payer OTHER, SELFPAY ==
[2024-02-24 13:35] VITALS: BP 128/74; PULSE 80; O2SAT 97; BMI 24.7
--- NOTE | 2024-02-24 13:35 | MHC.PC.OV ---
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: No Allergies No Known Allergies Allergy (Verified 02/24/24 14:24) Medication List - Last Reconciled 02/24/24 by Regulo Pillai MD gabapentin 1,200 mg (3 x 400 mg) PO TID 30 days mirtazapine 45 mg (3 x 15 mg) PO BEDTIME 30 days Tobacco use date assessed: 02/24/24 Dental Screening Dental Screen Date: 02/24/24 Did you have a dental visit in the last 12 months?: No Did you have a dental problem in the last 6 months where you did not have access to dental care?: No HPI 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 HPI Details Patient comes in today for his annual physical examination and to reestablish care - he was last seen almost 15 years ago, sometime in 2010 Patient states that a lot has changed since he was last here He used to be on Suboxone but came off his Rx and stopped going to the Suboxone clinic sometime earlier this year Relates that he has been experiencing on and off irritation/discomfort in his throat when swallowing food x 4 months Has had no problems so far with liquids He denies any sore throat or fever; denies any recent cough/cold symptoms He denies any headaches or dizziness Denies any chest pains, no SOB No nausea/vomiting, no abdominal pain No change in bowel habits noted He denies any acute urinary symptoms [facility], [facility] Medical History (Updated 03/01/24 @ 03:01 by Regulo Pillai MD) Smoker Alcohol use disorder Opiate use Depression Surgical History (Updated 03/01/24 @ 02:59 by Regulo Pillai MD) No pertinent past surgical history Family History (Updated 03/01/24 @ 03:00 by Regulo Pillai MD) Other Family history non-contributory Social History Household Members: Significant Other and Children Housing: House Do you presently have visiting nurse or other home services: No Patient Tobacco Use Status: Current everyday Tobacco user Tobacco use type: Cigarette Cigarette Packs Per Day: 30 Cigarettes Per Day: 30 Years Smoked: 20 e-Cigarette/Vaping Use: Never Used Second Hand Smoke Exposure: Yes Substance Use Type: Marijuana and Caffiene service: Yes (Other than honorable D/C 15 years ago; [employer]) Current occupational status: employed 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 1. Little interest or pleasure in doing things: more than half the days 2. Feeling down, depressed, or hopeless: several days 3. Trouble falling or staying asleep, or sleeping too much: nearly every day 4. Feeling tired or having little energy: more than half the days 5. Poor appetite or overeating: several days 6. Feeling bad about yourself - or that you are a failure or have let yourself or your family down: more than half the days 7. Trouble concentrating on things, such as reading the newspaper or watching television: more than half the days 8. Moving or speaking so slowly that other people could have noticed. Or the opposite - being so fidgety or restless that you have been moving around a lot more than usual: several days 9. Thoughts that you would be better off or of hurting yourself in some way: not at all Total score: 14 Depression Screening Interpretation: Positive Depression Screening Follow-up: Existing condition and In treatment Depression Screening Done: Yes 98910 - PHQ-9 Billing: Yes Source: Developed by Drs. Nabil Ruiz, Linda Pierce, Ken Fofana and colleagues, with an educational vibha from [employer]. Thrive Questionnaire Date Thrive assessed: 02/24/24 I am a: Patient What is your living situation today?: I have a steady place to live Within the past 12 months, did the food you bought not last and you didn't have the money to get more?: Never true Within the past 12 months, did you worry whether your food would run out before you got money to buy more?: Never true Do you have trouble paying for medicines?: No Do you have trouble getting transportation to medical appointments?: No Do you have trouble paying your heating and electricity bill?: No Do you have trouble taking care of your child, family member or friend?: No Do you have trouble with day-to-day activities such as bathing, preparing meals, shopping, managing finances, etc.?: No Are you currently unemployed and looking for a job?: No Are you interested in more education?: No Currently or been in a relationship where the following occur: No concerns reported THRIVE Score: 0 AUDIT C Alcohol Use Questionnaire (AUDIT-C) 1. How often do you have a drink containing alcohol?: 4 or more times a week 2. How many drinks containing alcohol do you have on a typical day when you are drinking?: 5 or 6 3. How often do you have six or more drinks on one occasion?: Daily or almost daily Total Score: 10 Score Reviewed/Action Taken: Yes NEIL-7 AMB Questionnaire NEIL-7 Date NEIL - 7 assessed: 02/24/24 Feeling nervous, anxious, or on edge: 2 = More than half the days Not being able to stop or control worryin = More than half the days Worrying too much about different things: 2 = More than half the days Trouble relaxin = Nearly every day Being so restless that it is hard to sit still: 1 = Several days Becoming easily annoyed or irritable: 1 = Several days Feeling afraid as if something awful might happen: 2 = More than half the days Total NEIL-7 score (0-4 normal; 5-9 mild; 10-14 moderate; 15-21 severe): 13 Source: Developed by Drs. Nabil Ruiz, Linda Pierce, Ken Fofana and colleagues, with an educational vibha from [employer]. NEIL-7 Assessment Billing NEIL-7 Assessment Tool: NEIL-7 Assessment 66986 Review of Systems Const Denies chills, Denies fatigue, Denies fever(s), Denies headache(s), Denies malaise and Denies weakness Eyes Denies blurry vision, Denies change in vision, Denies irritation and Denies itchy eyes ENT Reports dysphagia (only to solids (see HPI)), Denies dizziness, Denies otalgia, Denies headache(s), Denies nasal congestion, Denies neck pain, Denies odynophagia and Denies sore throat Card Denies chest pain, Denies rapid heart rate, Denies irregular heart rhythm, Denies palpitations and Denies dyspnea Resp Denies chest congestion, Denies cough, Denies dyspnea and Denies wheezing GI Denies abdominal pain, Denies bloating, Denies constipation, Reports dysphagia (only to solids (see HPI)), Denies heartburn, Denies diarrhea, Denies nausea, Denies odynophagia and Denies vomiting Denies hematuria, Denies difficulty urinating, Denies dysuria, Denies urinary frequency and Denies urinary urgency Musc Denies back pain, Denies arthralgias, Denies joint swelling, Denies muscle weakness and Denies neck pain Skin/Breast Denies change in pigmentation, Denies lesions, Denies rash and Denies unusual bruising Neuro Denies dizziness, Denies headache(s), Denies paresthesias and Denies weakness Endo Denies fatigue and Denies palpitations Aller/Immun Denies itchy eyes and Denies wheezing Physical exam (Primary Care) Vital Signs: Last Vital Signs Pulse 80 02/24/24 13:35 BP 128/74 02/24/24 13:35 Pulse Ox 97 02/24/24 13:35 Oxygen Delivery Method Room Air 02/24/24 13:35 BMI result Body Mass Index 24.7 Tobacco/Smoking Status: Tobacco use Status Tobacco use date assessed 02/24/24 02/24/24 13:42 Patient Tobacco Use Status Current everyday Tobacco 02/24/24 13:42 Tobacco use type Cigarette 02/24/24 13:42 e-Cigarette/Vaping Use Never Used 02/24/24 13:42 PHQ-9: PHQ-9 Score PHQ-9: Total score 14 02/24/24 17:06 Depression Screening Interpretation: Positive Depression Screening Follow-up: Existing condition and In treatment Thrive Assessment: Date of Thrive Assessment Date Thrive assessed 02/24/24 02/24/24 13:42 Currently or been in a relationship where the following occur: No concerns reported Const General: no acute distress, alert and awake Orientation/consciousness: patient oriented x3 HENMT Head: Yes normocephalic and Yes atraumatic Ears: external ears normal, TM's normal bilaterally and EAC's normal General nose exam: No nasal discharge present Face and sinus: Yes normal facial exam and Yes sinuses nontender Teeth and gingiva: dentition normal Throat: Yes posterior oropharynx normal and Yes tonsils normal (no TP congestion) Eyes Eyelids: Yes eyelids normal Conjunctivae: conjunctivae normal Pupils: Equal, round and reactive pupils present EOM: EOMs intact bilaterally Neck Neck: Yes no lymphadenopathy and Yes supple Thyroid: Thyroid normal Resp Auscultation: clear to auscultation bilaterally, no rales and no wheezes Cardio Rate: regular rate Rhythm: regular rhythm Heart sounds: no murmurs GI Palpation (GI): Soft to palpation, nontender and No hepatosplenomegaly present Auscultation: normal bowel sounds General: Yes no CVA tenderness Back/Spine/Pelvis Back: no CVA tenderness Thoracic/Lumbar Spine: thoracic and lumbar spine normal to inspection Skin Lesions: no lesions Rashes: no rashes Neuro General: patient oriented x3, moves all extremities, no focal motor deficits and CN's II-XI intact bilaterally Cranial nerves: Yes Equal, round and reactive pupils present Cognition (Neuro): normal cognition Gait exam (Neuro): Normal gait present Extrem General: Yes no clubbing, cyanosis or edema Assessment and Plan Assessment & Plan (1) Annual physical exam: Code(s): Z00.00 - Encounter for general adult medical examination without abnormal findings Plan: Check labs (2) Dysphagia: Code(s): R13.10 - Dysphagia, unspecified Qualifiers: Dysphagia type: unspecified Qualified Code(s): R13.10 - Dysphagia, unspecified Plan: Will send patient for a barium swallow for further evaluation (3) Major depression, recurrent: Code(s): F33.9 - Major depressive disorder, recurrent, unspecified Qualifiers: Active/Remission status: currently active Major depression episode severity: unspecified Qualified Code(s): F33.9 - Major depressive disorder, recurrent, unspecified Plan: Continue Mirtazapine 45 mg Q HS and Gabapentin 1200 mg TID Follow up with psychiatry as scheduled (4) Alcohol use disorder: Code(s): F10.90 - Alcohol use, unspecified, uncomplicated Plan: Counseled to continue working on cutting back and quitting alcohol consumption (5) Smoker: Code(s): F17.200 - Nicotine dependence, unspecified, uncomplicated Plan: Counseled on smoking cessation Plan Follow up in 6 months Orders: Orders Complete Blood Count Auto Diff 02/24/24 D64.9 - Anemia, unspecified, Z00.00 - Encounter for general adult medical examination without abnormal findings Comprehensive [place]. Panel Fast 02/24/24 E78.00 - Pure hypercholesterolemia, unspecified, Z00.00 - Encounter for general adult medical examination without abnormal findings TSH reflex Free T4 02/24/24 E78.00 - Pure hypercholesterolemia, unspecified, Z00.00 - Encounter for general adult medical examination without abnormal findings Vitamin D 25-OH Total 02/24/24 E55.9 - Vitamin D deficiency, unspecified, Z00.00 - Encounter for general adult medical examination without abnormal findings FL barium swallow 02/24/24 R13.10 - Dysphagia, unspecified, Z00.00 - Encounter for general adult medical examination without abnormal findings Lipid Panel 02/24/24 E78.00 - Pure hypercholesterolemia, unspecified, Z00.00 - Encounter for general adult medical examination without abnormal findings UA CC w/rflx Micro + Cult 02/24/24 R30.0 - Dysuria, Z00.00 - Encounter for general adult medical examination without abnormal findings Coding Level of Care Code New Pt Prev Care 18-39yr([id number] Diagnoses Annual physical exam Z00.00 Dysphagia, unspecified type R13.10 Dysphagia type: unspecified Episode of recurrent major depressive disorder, unspecified depression episode severity F33.9 Active/Remission status: currently active Major depression episode severity: unspecified Alcohol use disorder F10.90 Smoker F17.200 Additional Codes NEIL-7 Assessment Billing - NEIL-7 Assessment Tool: NEIL-7 Assessment [id number] ([id number])
== END 2024-02-24 14:39 | disposition home or self-care (01) ==
PROVIDERS: PCP Internal Medicine; Visit Provider Internal Medicine
DX: Z00.00 Encounter for general adult medical examination without abnormal findings (principal); R13.10 Dysphagia, unspecified; F33.9 Major depressive disorder, recurrent, unspecified; F10.90 Alcohol use, unspecified, uncomplicated; F17.200 Nicotine dependence, unspecified, uncomplicated
CPT/HCPCS: 96127; 99385

== ENCOUNTER 2024-03-29 10:32 | Outpatient (REF) | payer OTHER, SELFPAY ==
[2024-03-29 10:48] LABS: MANUAL DIFF FLAG NO
[2024-03-29 10:59] LABS: Basophils Absolute Auto 0.1 X10*3/uL (0.0-0.2); Basophils Percent Auto 0.7 % (0-2); Eosinophils Absolute Auto 0.1 X10*3/uL (0.0-0.4); Eosinophils Percent Auto 1.9 % (0-4); Hematocrit 43.7 % (42.0-52.0); Hemoglobin 15.5 g/dl (14.0-18.0); Imm Gran Abs Auto 0.02 X10*3/uL (0.00-0.03); Imm Gran Pct Auto 0.3 % (0.0-0.4); Lymphocytes Percent Auto 29.3 % (20-40); Mean Corpuscular HGB Conc 35.5 g/dl (31.0-36.0); Mean Corpuscular Hemoglobin 32.9 pg (27.0-33.0); Mean Corpuscular Volume 92.8 fL (80.0-98.0); Mean Platelet Volume 11.2 fL (9.4-12.4); Monocytes Absolute Auto 0.5 X10*3/uL (0.1-1.2); Monocytes Percent Auto 7.9 % (2-11); Neutrophils Absolute Auto 4.1 x10*3/uL (2.0-8.3); Neutrophils Percent Auto 59.9 % (45-73); Platelet Count 234 X10*3/uL (160-400); Red Blood Count 4.71 X10*6/uL (4.60-5.80); Red Cell Distribution Width 11.9 % (11.0-16.0); White Blood Count 6.8 X10*3/uL (4.8-10.8)
[2024-03-29 11:50] LABS: TSH reflex Free T4 2.21 uIU/mL (0.32-4.0); Vitamin D 25-OH Total 40.9 ng/mL (>30)
[2024-03-29 11:56] LABS: Anion Gap 12 (12-20)
[2024-03-29 12:01] LABS: Alanine Aminotransferase 31 U/L (0-40); Albumin Level 4.4 g/dL (3.5-5.0); Alkaline Phosphatase 75 U/L (39-117); Aspartate Amino Transferase 26 U/L (5-37); Bilirubin Total 0.5 mg/dL (0.0-1.0); Blood Urea Nitrogen 15 mg/dL (9-16); Calcium 9.6 mg/dL (8.4-10.2); Carbon Dioxide 26 mmol/L (22-29); Chloride 107 mmol/L (96-108); Cholesterol 228 mg/dL (<200); Estimated Glomerular Filt Rate > 60; Glucose Fasting 89 mg/dL (60-99); HDL Cholesterol 59 mg/dL (>40); LDL Cholesterol Calculated 134 mg/dL (<100); Sodium 141 mmol/L (135-145); Total Protein 7.8 g/dL (6.5-8.0); Triglycerides 177 mg/dL (<150)
[2024-03-29 13:35] LABS: Appearance Urine Clear; Color Urine Yellow; Glucose Urine UA Negative (Negative); Leukocyte Esterase Urine Negative (Negative); Nitrite Urine Negative (Negative); Specific Gravity - Urine 1.025 (1.005-1.025); Urine Blood Negative (Negative); Urine Ketones Negative (Negative); Urine Protein Negative (Neg-Trace)
== END 2024-03-29 10:33 | disposition home or self-care (01) ==
LOC: HO.LAB 10:32
PROVIDERS: PCP Internal Medicine; Visit Provider Internal Medicine
DX: Z00.00 Encounter for general adult medical examination without abnormal findings (principal); E78.00 Pure hypercholesterolemia, unspecified; R30.0 Dysuria; D64.9 Anemia, unspecified; E55.9 Vitamin D deficiency, unspecified
CPT/HCPCS: 36415; 80053; 80061; 81003; 82306; 84443; 85025

== ENCOUNTER 2024-05-04 09:19 | Outpatient (REF) | payer OTHER, SELFPAY ==
--- NOTE | ~2024-05-04 | FL_ITS ---
EXAMINATION: XR FLUOROSCOPY UPPER GI WITH AIR CLINICAL INFORMATION: Chest discomfort. COMPARISON: None TECHNIQUE: Fluoroscopic air contrast upper GI examination was performed utilizing standard techniques with thin and thick barium and effervescent granules. Numerous spot images were obtained. FINDINGS: Dual and single contrast images of the esophagus demonstrate normal caliber, contour, and mucosal pattern. No evidence of stricture, mass, or ulcerations identified. Esophageal peristalsis was normal. A small type I hiatal hernia is present. Gastroesophageal reflux is seen up to the mid esophagus. Dual contrast and single contrast images of the stomach demonstrated a normal contour. The areae gastrica have a prominent appearance, suggestive of gastritis. There are multiple tiny foci of contrast pooling in the fundus and body of the stomach that may represent small superficial aphthous ulcers. No masses are present. Contrast freely passed into the gastric antrum and duodenal bulb without delay. Single and air-contrast images of the duodenal bulb demonstrate no abnormality. The duodenal sweep has a normal appearance, course, and mucosal fold appearance. The imaged proximal jejunum has a normal fold pattern and caliber. Barium reaches the distal ileum within 10 minutes, in which the contrast becomes dilute. The ileal folds have an abnormal/thickened appearance. FLUOROSCOPY TIME: 4 minutes 24 seconds DOSE AREA PRODUCT: 2669 uGy-m2 (microgray-meter squared) FL/FL barium swallow IMPRESSION: 1. Small type I hiatal hernia with mild gastroesophageal reflux seen. 2. Prominent appearance of the areae gastrica. In addition, there are multiple tiny foci of contrast pooling in the fundus and body of the stomach. These findings are suggestive of erosive gastritis. Recommend correlation with EGD. 3. Barium reaches the distal ileum within 10 minutes, in which the contrast becomes dilute. The ileal folds have an abnormal/thickened appearance. These findings may represents a malabsorption disorder, such as celiac's disease, given the patient's symptom of watery stools. This procedure was performed by Mariano Pacheco PA-C, and supervised by Dr. King Electronically signed by: Adan King MD 05/05/2024 04:25 PM EDT RP
== END 2024-05-04 09:20 | disposition home or self-care (01) ==
LOC: HO.XRAY 09:19
PROVIDERS: PCP Internal Medicine; Visit Provider Internal Medicine
DX: R13.10 Dysphagia, unspecified (principal)
CPT/HCPCS: 74220

== ENCOUNTER → 2024-05-04 09:24 | Outpatient (BNV) | payer OTHER, SELFPAY | PROVIDERS: PCP Internal Medicine; Visit Provider Radiology Diagnostic Radiology | DX: R13.10 Dysphagia, unspecified (principal) | CPT/HCPCS: 74246 ==